=== PATIENT | male | born 1960 | race Caucasian/White ===

== ENCOUNTER 2018-02-04 08:17 | Inpatient (IN) | payer OTHER, SELFPAY ==
[2018-02-04] MEDS ORDERED: ASPIRIN 81 MG CHEWABLE TABLET ONE (08:27)
[2018-02-04] MEDS ORDERED: METOPROLOL TAR 25 MG TAB ONE (08:27)
[2018-02-04] MEDS ORDERED: CLOPIDOGREL 75 MG TABLET ONE (08:27)
--- NOTE | 2018-02-04 08:31 | ER ---
Nurse's Notes [facility] Name: Addison Andrews Age: 58 yrs Sex: Male : 1960 Arrival Date: 02/04/2018 Time: 08:20 Bed 6 Private MD: Diagnosis: ST elevation (STEMI) myocardial infarction of anterior wall Presentation: 02/04 08:20 Presenting complaint: Patient states: left sided chest pain radiating through his back iw started yesterday afternoon, pain constant, pressure, 8/10, no cardiac hx. Transition of care: patient was not received from another setting of care. Onset of symptoms was February 03, 2018. Risk Assessment: Do you want to hurt yourself or someone else? Patient reports no desire to harm self or others. Initial Sepsis Screen: Does the patient meet any 2 criteria? No. Patient's initial sepsis screen is negative. Does the patient have a suspected source of infection? No. Patient's initial sepsis screen is negative. Care prior to arrival: Medication(s) given:. 08:20 Method Of Arrival: Wheelchair iw 08:20 Acuity: DUKE 2 iw Historical: - Allergies: 08:22 NKA; iw - Home Meds: 08:22 None [Active]; iw - PMHx: 08:22 None; iw - PSHx: 08:22 None; iw - Immunization history:: Adult Immunizations not up to date. - Social history:: Smoking status: Patient uses tobacco products, smokes one-half pack cigarettes per day. - Ebola Screening: : Patient negative for fever greater than or equal to 101.5 degrees Fahrenheit, and additional compatible Ebola Virus Disease symptoms Patient denies exposure to infectious person Patient denies travel to an Ebola-affected area in the 21 days before illness onset No symptoms or risks identified at this time. Screenin:34 Abuse screen: Denies threats or abuse. Denies injuries from another. Nutritional iw screening: No deficits noted. Tuberculosis screening: No symptoms or risk factors identified. Fall Risk IV access (20 points). Assessment: 08:20 General: Appears distressed, uncomfortable, Behavior is cooperative. Pain: Complains of iw pain in anterior aspect of left upper chest and left breast Pain radiates to back Pain currently is 8 out of 10 on a pain scale. Quality of pain is described as pressure, Pain began 1 day ago. Is continuous. Neuro: Level of Consciousness is awake, alert, obeys commands, Oriented to person, place, time, situation, Moves all extremities. Full function. Cardiovascular: Reports chest pain, Denies nausea, vomiting, Capillary refill < 3 seconds in bilateral fingers Patient's skin is warm and dry. Respiratory: Respiratory effort is even, unlabored, Respiratory pattern is regular, symmetrical. GI: Patient currently denies vomiting. Derm: Skin is pink, warm \T\ dry. normal. Musculoskeletal: Range of motion: intact in all extremities. 08:40 Reassessment: Line Production Cook nurse at bedside to receive report, pt placed on Life [employer]ar iw monitor, placed on O2. Vital Signs: 08:22 BP 157 / 107; Pulse 87; Resp 20 S; Pulse Ox 96% on R/A; Weight 88.45 kg (R); Pain 8/10; iw 08:33 BP 145 / 108; Pulse 86; Resp 20 S; Pulse Ox 97% on R/A; Pain 8/10; iw 08:40 BP 138 / 94; Pulse 85; Resp 22; Pulse Ox 97% ; jl7 08:45 BP 119 / 94; jl7 ED Course: 08:20 Patient arrived in ED. hj 08:22 John Solis MD is Attending Physician. gs 08:27 Triage completed. iw 08:30 Laquita Hays MD is Hospitalizing Provider. gs 08:30 Inserted saline lock: 20 gauge in right antecubital area, using aseptic technique. iw Blood collected. IV inserted by ALEK Page. 08:33 X-ray completed. Portable x-ray completed in exam room. 1 08:34 XRAY Chest (1 view) In Process Unspecified. EDMS 08:34 Inserted saline lock: 22 gauge in left hand, using aseptic technique. IV inserted by jose Page RN. 08:36 Patient has correct armband on for positive identification. Placed in gown. Bed in low iw position. Call light in reach. Side rails up X2. Adult w/ patient. consulting technical director on. Pulse ox on. NIBP on. 08:41 EKG done, by site supervising technical operator. reviewed by John Solis MD. at1 08:45 Jena Oliver RN is Primary Nurse. iw 08:46 No provider procedures requiring assistance completed. Patient admitted, IV remains in iw place. 08:55 Arm band placed on right wrist. jl7 Administered Medications: 08:28 Drug: Aspirin Chewable Tablet 324 mg Route: PO; iw 08:56 Follow up: Response: Other; Pt moved to research laboratory manager jl7 08:34 Drug: Heparin ([place]-Bolus No thrombolytic) - HEParin 60 units/kg {Co-Signature: ae1 jl7 (Myke Humphrey RN).} Route: IVP; Site: right antecubital; 08:57 Follow up: Response: Pt moved to research laboratory manager jl7 08:36 Drug: morphine 8 mg Route: IVP; Site: left hand; jl7 08:57 Follow up: Response: Pt moved to research laboratory manager jl7 08:36 Drug: Heparin ([place] Drip) 12 units/kg/hr - (HEParin 31452 units, D5W 500 ml) jl7 {Co-Signature: ae1 (Myke Humphrey RN).} Route: IV; Rate: calculated rate; Site: right antecubital; 08:58 Follow up: IV Status: Infusion continued upon admission jl7 08:40 Drug: Lopressor 5 mg Route: IVP; Site: left hand; jl7 08:57 Follow up: Response: Pt moved to research laboratory manager jl7 Outcome: 08:31 Decision to Hospitalize by Provider. 08:58 Admitted to Line Production Cook accompanied by nurse, family with patient, via stretcher, with jl7 oxygen, on monitor, with chart, Other Report given to research laboratory manager nurse 08:58 Condition: stable 08:58 Instructed on the need for admit, Demonstrated understanding of instructions. 08:59 Patient left the ED. [facility] Signatures: Dispatcher [employer] EDMS Dee Dee Plata mh1 Jena Oliver, RN RN Annelise aguilar, accounting advisory services manager EKG Tat1 Jd Peralta RN RN hj Leal, Jahala, RN RN [facility] John Solis MD MD Myke Humphrey RN ae1 Corrections: (The following items were deleted from the chart) 08:29 08:22 BP 157 / 107; Pulse 87bpm; Resp 20bpm; Spontaneous; Pulse Ox 96% RA; Pain 8/10; iwiw
--- NOTE | 2018-02-04 08:31 | EDPHYS ---
Physician Documentation [facility] Name: Addison Andrews Age: 58 yrs Sex: Male : 1960 Arrival Date: 02/04/2018 Time: 08:20 Bed 6 Private MD: ED Physician John Solis HPI: 02/04 08:45 This 58 yrs old Male presents to ER via Wheelchair with complaints of Chest gs Pain. 08:45 The patient or guardian reports chest pain that is located primarily in the anterior gs chest wall. Onset: yesterday. The pain radiates to Associated signs and symptoms: Pertinent positives: shortness of breath. The chest pain is described as a heaviness. Duration: The patient or guardian reports a single episode, that is still ongoing. Modifying factors: The symptoms are alleviated by nothing. Severity of pain: At its worst the pain was severe in the emergency department the pain is unchanged. The patient has not experienced similar symptoms in the past. Historical: - Allergies: 08:22 NKA; iw - Home Meds: 08:22 None [Active]; iw - PMHx: 08:22 None; iw - PSHx: 08:22 None; iw - Immunization history:: Adult Immunizations not up to date. - Social history:: Smoking status: Patient uses tobacco products, smokes one-half pack cigarettes per day. - Ebola Screening: : Patient negative for fever greater than or equal to 101.5 degrees Fahrenheit, and additional compatible Ebola Virus Disease symptoms Patient denies exposure to infectious person Patient denies travel to an Ebola-affected area in the 21 days before illness onset No symptoms or risks identified at this time. ROS: 08:45 All other systems are negative. gs Exam: 08:45 Head/Face: Normocephalic, atraumatic. Eyes: Pupils equal round and reactive to light, gs extra-ocular motions intact. Lids and lashes normal. Conjunctiva and sclera are non-icteric and not injected. Cornea within normal limits. Periorbital areas with no swelling, redness, or edema. ENT: Nares patent. No nasal discharge, no septal abnormalities noted. Tympanic membranes are normal and external auditory canals are clear. Oropharynx with no redness, swelling, or masses, exudates, or evidence of obstruction, uvula midline. Mucous membranes moist. Neck: Trachea midline, no thyromegaly or masses palpated, and no cervical lymphadenopathy. Supple, full range of motion without nuchal rigidity, or vertebral point tenderness. No Meningismus. Chest/axilla: Normal chest wall appearance and motion. Nontender with no deformity. No lesions are appreciated. Cardiovascular: Regular rate and rhythm with a normal S1 and S2. No gallops, murmurs, or rubs. Normal PMI, no JVD. No pulse deficits. Respiratory: Lungs have equal breath sounds bilaterally, clear to auscultation and percussion. No rales, rhonchi or wheezes noted. No increased work of breathing, no retractions or nasal flaring. Abdomen/GI: Soft, non-tender, with normal bowel sounds. No distension or tympany. No guarding or rebound. No evidence of tenderness throughout. Back: No spinal tenderness. No costovertebral tenderness. Full range of motion. Skin: Warm, dry with normal turgor. Normal color with no rashes, no lesions, and no evidence of cellulitis. MS/ Extremity: Pulses equal, no cyanosis. Neurovascular intact. Full, normal range of motion. Neuro: Awake and alert, GCS 15, oriented to person, place, time, and situation. Cranial nerves II-XII grossly intact. Motor strength 5/5 in all extremities. Sensory grossly intact. Cerebellar exam normal. Normal gait. 08:45 Constitutional: The patient appears alert, awake. 08:45 ECG was reviewed by the Attending Physician. Vital Signs: 08:22 BP 157 / 107; Pulse 87; Resp 20 S; Pulse Ox 96% on R/A; Weight 88.45 kg (R); Pain 8/10; iw 08:33 BP 145 / 108; Pulse 86; Resp 20 S; Pulse Ox 97% on R/A; Pain 8/10; iw 08:40 BP 138 / 94; Pulse 85; Resp 22; Pulse Ox 97% ; jl7 08:45 BP 119 / 94; jl7 MDM: 08:22 Patient medically screened. 08:45 Differential diagnosis: acute myocardial infarction, coronary artery disease chest wall gs pain, congestive heart failure. Data reviewed: vital signs, nurses notes. 02/04 08:26 Order name: Basic Metabolic Panel 02/04 08:26 Order name: CBC with Diff 02/04 08:26 Order name: LFT's 02/04 08:26 Order name: Magnesium 02/04 08:26 Order name: PT-INR 02/04 08:26 Order name: Troponin (emerg Dept Use Only) 02/04 08:26 Order name: XRAY Chest (1 view) 02/04 08:26 Order name: EKG; Complete Time: 08:27 02/04 08:26 Order name: Cardiac monitoring; Complete Time: 08:36 02/04 08:26 Order name: EKG - Nurse/Tech; Complete Time: 08:45 02/04 08:26 Order name: IV Saline Lock; Complete Time: 08:36 02/04 08:26 Order name: Labs collected and sent; Complete Time: 08:36 02/04 08:26 Order name: O2 Per Protocol; Complete Time: 08:45 02/04 08:26 Order name: O2 Sat Monitoring; Complete Time: 08:45 EC:45 Rate is 87 beats/min. Rhythm is regular. TN interval is normal. QRS interval is normal. gs ST Segment is elevated in leads I, V2, V3, V4, V5, V6. Clinical impression: Anterior NH - acute. Interpreted by me. Administered Medications: 08:28 Drug: Aspirin Chewable Tablet 324 mg Route: PO; iw 08:56 Follow up: Response: Other; Pt moved to clinical laboratory medical director jl7 08:34 Drug: Heparin ([place]-Bolus No thrombolytic) - HEParin 60 units/kg {Co-Signature: ae1 jl7 (Myke Humphrey RN).} Route: IVP; Site: right antecubital; 08:57 Follow up: Response: Pt moved to clinical laboratory medical director jl7 08:36 Drug: morphine 8 mg Route: IVP; Site: left hand; jl7 08:57 Follow up: Response: Pt moved to clinical laboratory medical director jl7 08:36 Drug: Heparin ([place] Drip) 12 units/kg/hr - (HEParin 76832 units, D5W 500 ml) jl7 {Co-Signature: ae1 (Myke Humphrey RN).} Route: IV; Rate: calculated rate; Site: right antecubital; 08:58 Follow up: IV Status: Infusion continued upon admission jl7 08:40 Drug: Lopressor 5 mg Route: IVP; Site: left hand; jl7 08:57 Follow up: Response: Pt moved to clinical laboratory medical director jl7 Disposition: 02/04/18 08:31 Hospitalization ordered by Laquita Hays for Inpatient Admission. Preliminary diagnosis is ST elevation (STEMI) myocardial infarction of anterior wall. - Bed requested for Intensive Care Unit. - Status is Inpatient Admission. jl7 - Condition is Stable. - Problem is new. - Symptoms have improved. UTI on Admission? No Signatures: Dispatcher [employer] EDMS Jena Oliver RN RN Camilo Betancourt RN RN 7 John Solis MD MD Myke Humphrey RN ae1 Corrections: (The following items were deleted from the chart) 08:45 08:26 Urine Dipstick-Ancillary ordered. [facility] 08:59 08:31 Hospitalization Ordered by Laquita Hays MD for Inpatient Admission. Preliminary [address] elevation (STEMI) myocardial infarction of anterior wall. Bed requested for Intensive Care Unit. Status is Inpatient Admission. Condition is Stable. Problem is new. Symptoms have improved. UTI on Admission? No.
[2018-02-04] MEDS ORDERED: MORPHINE 4 MG/ML SYR ONE ×2 (08:34→10:30)
[2018-02-04] MEDS ORDERED: HEPARIN 5000 UNIT/ML 1 ML VIAL ONE (08:34)
[2018-02-04] MEDS ORDERED: HEPARIN/D5W 25,000 UNIT/500 ML BAG IV ONE (08:35)
[2018-02-04] MEDS ORDERED: METOPROLOL TARTRATE 5 MG/5 ML INJ IV ONE ×2 (08:35→09:02)
[2018-02-04] MEDS ORDERED: HEPA 1000U/500MLS 1,000 UNIT/500 ML BAG IV ONE ×2 (08:39→11:31)
[2018-02-04] MEDS ORDERED: LIDOCAINE 1% MPF 2 ML AMPULE ONE ×3 (08:40→11:33)
[2018-02-04] MEDS ORDERED: MIDAZOLAM HCL 2 MG/2 ML INJ ONE (08:40)
[2018-02-04] MEDS ORDERED: FENTANYL CITR 100 MCG/2 ML ONE ×2 (08:41→09:44)
[2018-02-04] MEDS ORDERED: NA CHLORIDE 0.9% 50 ML ONE (08:41)
[2018-02-04] MEDS ORDERED: ATROPINE SULF 1 MG/10 ML SYR IV ONE (08:41)
[2018-02-04] MEDS ORDERED: NITROGLYCERIN 100 MCG/ML SYR (for cath lab use only) IV ONE (08:47)
[2018-02-04] MEDS ORDERED: NITROGLYCERIN/D5W 25 MG/250 ML BTL IV ONE (08:47)
[2018-02-04] MEDS ORDERED: NA CHLORIDE 0.9% 500 ML ONE (08:52)
[2018-02-04 08:56] LABS: Absolute Lymphocytes (CBC) 2.3 K/uL (0.7-4.9); Absolute Monocytes 1.1 K/uL (0.1-1.3); Absolute Neutrophil 12.7 K/uL (1.8-8.0); Basophils % 0.3 % (0-1.3); Eosinophils % 0.1 % (0-4.4); Hematocrit 46.8 % (39.6-49.0); Lymphocytes % 14.4 % (15.3-44.8); MCH 29.1 pg (27.0-35.0); MCV 85.2 fL (80-100); MPV 9.4 fL (7.6-11.3); Monocytes % 6.9 % (3.3-12.3); RBC Red Blood Cell Count 5.49 M/uL (4.33-5.43)
[2018-02-04 08:57] LABS: Protime INR 0.97
--- NOTE | 2018-02-04 08:59 | RAD REPORT ---
EXAM DESCRIPTION: RAD - Chest Single View - 02/04/2018 8:34 am CLINICAL HISTORY: CHEST PAIN Chest pain. COMPARISON: No comparisons FINDINGS: Portable technique limits examination quality. The lungs are grossly clear. The heart is normal in size. No displaced fractures. IMPRESSION: No acute intrathoracic process suspected.
[2018-02-04] MEDS ORDERED: FUROSEMIDE 20 MG/ 2ML VIAL ONE (09:04)
[2018-02-04 09:28] LABS: Arterial Blood Carboxyhemoglob 2.3 % (0-1.5); Blood Gas Oxyhemoglobin 96.5 % (94-97); Blood O2 Saturation 99.8 % (92-98.5)
[2018-02-04 09:39] LABS: ALT/SGPT 90 U/L (12-78); Albumin 3.9 g/dL (3.4-5.0); Alkaline Phosphatase 94 U/L (45-117); BUN Blood Urea Nitrogen 10 mg/dL (7-18); Bicarbonate 31 mmol/L (21-32); Bilirubin Direct 0.1 mg/dL (0-0.2); Bilirubin Total 0.5 mg/dL (0.2-1.0); Glucose Level 323 mg/dL (74-106); Magnesium 2.1 mg/dL (1.8-2.4); Potassium 4.1 mmol/L (3.5-5.1); Protein, Total 8.1 g/dL (6.4-8.2); Sodium Level 135 mmol/L (136-145)
[2018-02-04 09:46] LABS: AST/SGOT 449 U/L (15-37)
[2018-02-04] MEDS ORDERED: PRASUGREL (EFFIENT) 10 MG TAB ONE (09:50)
[2018-02-04] MEDS ORDERED: NITROGLYCERIN 0.4 MG/TAB SL ONE (10:34)
[2018-02-04] MEDS ORDERED: NITROPRUSSIDE 50 MG VIAL IV ONE (10:44)
[2018-02-04] MEDS ORDERED: D5W 250 ML IV ONE (10:44)
[2018-02-04] MEDS ORDERED: ONDANSETRON 4 MG/2 ML VIAL IV PRN (12:55)
[2018-02-04] MEDS ORDERED: NA CHLORIDE 0.9% 1,000 ML IV SCH (13:00)
[2018-02-04] MEDS ORDERED: ZOLPIDEM TARTRATE 10 MG TABLET PO PRN (13:24)
[2018-02-04] MEDS: MORPHINE 4 MG/ML SYR IV PRN ×2 (13:51→21:21)
[2018-02-04] MEDS ORDERED: GLUCAGON 1 MG/VIAL IM PRN (13:56)
[2018-02-04] MEDS ORDERED: D50W 25 GM/50 ML SYRINGE IV PRN (13:56)
[2018-02-04] MEDS ORDERED: NITROGLYCERIN 0.4 MG/TAB SL PRN (14:16)
--- NOTE | 2018-02-04 14:51 | EKG ---
Test Date: 2018-02-04 Test Time: 10:37:01 Adjunct Instructor In Economics: ECTOR MEASUREMENT RESULTS: Intervals: Rate: 88 NH: 142 QRSD: 92 QT: 362 QTc: 438 [place]: P: 53 NH: 142 QRS: 77 T: 52 INTERPRETIVE STATEMENTS: Normal sinus rhythm Anterolateral infarct, possibly acute ACUTE ME Abnormal ECG Compared to ECG 02/04/2018 08:18:30 No significant changes Electronically Signed On 02-04-18 14:50:15 CDT by Erickson Castillo
--- NOTE | 2018-02-04 14:52 | EKG ---
Test Date: 2018-02-04 Test Time: 08:18:30 Chief Design Engineer: ECTOR MEASUREMENT RESULTS: Intervals: Rate: 87 GA: 146 QRSD: 88 QT: 346 QTc: 416 [place]: P: 50 GA: 146 QRS: 13 T: 37 INTERPRETIVE STATEMENTS: Normal sinus rhythm Low voltage QRS Anteroseptal infarct, possibly acute Inferolateral injury pattern ACUTE IN / STEMI Abnormal ECG No previous ECG available for comparison Electronically Signed On 02-04-18 14:50:19 CDT by Erickson Castillo
--- NOTE | 2018-02-04 15:42 | P.HP ---
Certification for Inpatient Patient admitted to: Inpatient With expected LOS: >2 Midnights Patient will require the following post-hospital care: None Practitioner: I am a practitioner with admitting privileges, knowledge of patient current condition, hospital course, and medical plan of care. Services: Services provided to patient in accordance with Admission requirements found in Title 42 Section 412.3 of the Code of Federal Regulations Patient History Date of Service: 02/04/18 Primary Care Provider: None Reason for admission: STEMI History of Present Illness: This is a 58-year-old male with no significant past medical history who presented to the ED complaining of having some chest pain. Patient stated that his chest pain started yesterday. Chest pain was in the left lateral side which is radiating back to his back and up his neck as well. Patient stated that he was resting at that time the chest pain started at its worse patient was 8/10 and felt like heaviness his chest area. Patient also had associated nausea and feeling of on using his with the chest pain. Patient has never had any other past medical history number has anything like this happen to him before. Patient denies having any alcohol positive for tobacco. In the ER patient was found to have STEMI on the EKG and troponin was elevated to 105 and thus was admitted for further care. Allergies No Known Allergies Allergy (Unverified 02/04/18 09:03) Home medications list reviewed: Yes Home Medications: Aspirin [Aspirin EC 81 MG] 81 mg PO DAILY 02/04/18 - Past Medical/Surgical History Has patient received pneumonia vaccine in the past: No Diabetic: No Past Medical History: Patient denies medical history Past Surgical History: Patient denies surgical history - Family History Family History: Reviewed- Non-Contributory - Social History Smoking Status: Current every day smoker Counseled patient to stop smoking for: more than 10 minutes Smoking therapy provided: Yes Patient receptive to therapy: Yes Alcohol use: No CD- Drugs: No Caffeine use: No Review of Systems General: As per HPI Physical Examination - Vital Signs Temperature: 97.0 F Blood Pressure: 121/92 Pulse: 88 Respirations: 23 Pulse Ox (%): 97 - Physical Exam General: Alert, Oriented x3, Moderate distress HEENT: Atraumatic Neck: Supple Respiratory: Clear to auscultation bilaterally, Normal air movement Cardiovascular: Regular rate/rhythm, Normal S1 S2 Gastrointestinal: Normal bowel sounds, Soft and benign, Non-distended, No tenderness Musculoskeletal: No tenderness Integumentary: No rashes Neurological: Normal gait, Normal speech, Normal strength at 5/5 x4 extr, Normal tone, Normal affect Lymphatics: No axilla or inguinal lymphadenopathy - Studies Laboratory Data (last 24 hrs) 02/04/18 08:25: PT 11.4, INR 0.97 02/04/18 08:25: WBC 16.2 H, Hgb 16.0, Hct 46.8, Plt Count 237 02/04/18 08:25: Sodium 135 L, Potassium 4.1, BUN 10, Creatinine 0.70, Glucose 323 H, Magnesium 2.1, Total Bilirubin 0.5, AST 449 H*, ALT 90 H, Alkaline Phosphatase 94 Assessment and Plan - Problems (Diagnosis) (1) STEMI (ST elevation myocardial infarction) Current Visit: Yes Status: Acute Plan: Pt with ST elevation in Lateral Leads and troponin elevated to 105 -Cardiology consulted from the ER. -Reccs Public Health Assistant -S/p heart Cath with Stent Placement in the LAD -Occlusion of the LAD -Transfer to ICU for close monitoring -BB, ASA, Effient, Statin. -Nitroglcerin for Angina PRN -Will check lipid panel and hga1c Qualifiers: Involved coronary artery: LAD coronary artery Qualified Code(s): I21.02 - ST elevation (STEMI) myocardial infarction involving left anterior descending coronary artery Discharge Plan: Other Plan to discharge in: 72 Hours - Advance Directives Does patient have a Living Will: No Does patient have a Durable POA for Healthcare: No - Code Status/Comfort Care Code Status Assessed: Yes Critical Care: Yes
[2018-02-04] MEDS: DIAZEPAM 5 MG TABLET PO PRN (16:09)
[2018-02-04 16:23] LABS: Urine Appearance CLEAR; Urine Bilirubin NEGATIVE (NEG); Urine Blood NEGATIVE (NEG); Urine Color YELLOW; Urine Glucose 3+ (NEG); Urine Protein NEGATIVE (NEG); Urine Specific Gravity >=1.030 (1.005-1.030); Urine Urobilinogen 0.2 mg/dL (0.2-1.0); Urine pH 5.5 (5.0-7.0)
[2018-02-04 16:32] LABS: Barbiturates NEGATIVE (NEGATIVE); Benzodiazepines POSITIVE (NEGATIVE); Cocaine NEGATIVE (NEGATIVE); METHAMPHETAM NEGATIVE (NEGATIVE); Methadone NEGATIVE (NEGATIVE); Opiates POSITIVE (NEGATIVE); Phencyclidine NEGATIVE (NEGATIVE); THC Cannibis NEGATIVE (NEGATIVE)
[2018-02-04 16:36] LABS: Urine Microscopic Reflex NO UMIC
[2018-02-04] MEDS: INSULIN -REGULAR HUMAN 50 UNIT/0.5 ML ML SQ SCH ×2 (17:36→21:18)
[2018-02-04] MEDS: ATORVASTATIN 80 MG TAB PO SCH (21:21)
[2018-02-05] MEDS: MORPHINE 4 MG/ML SYR IV PRN ×4 (05:03→20:23)
[2018-02-05 05:13] VITALS: BMI 35.9
[2018-02-05 05:19] LABS: Absolute Lymphocytes (CBC) 2.5 K/uL (0.7-4.9); Absolute Monocytes 2.3 K/uL (0.1-1.3); Absolute Neutrophil 16.8 K/uL (1.8-8.0); Basophils % 0.2 % (0-1.3); Lymphocytes % 11.3 % (15.3-44.8); MCH 29.5 pg (27.0-35.0); MCV 86.5 fL (80-100); MPV 9.7 fL (7.6-11.3); Monocytes % 10.8 % (3.3-12.3)
[2018-02-05 05:39] LABS: Albumin 3.2 g/dL (3.4-5.0); Bilirubin Total 1.7 mg/dL (0.2-1.0); Magnesium 1.9 mg/dL (1.8-2.4); Phosphorus 3.7 mg/dL (2.5-4.9); Potassium 5.3 mmol/L (3.5-5.1); Protein, Total 7.1 g/dL (6.4-8.2)
[2018-02-05] MEDS ORDERED: INSULIN 70/30 100 UNITS/ML SQ ONE (06:00)
[2018-02-05] MEDS ORDERED: COLCHICINE 0.6 MG TAB PO PRN (08:10)
[2018-02-05] MEDS: METOPROLOL XL 50 MG TAB PO SCH (08:40)
[2018-02-05] MEDS: ASPIRIN 81 MG CHEWABLE TABLET PO SCH (08:42)
[2018-02-05] MEDS: PRASUGREL (EFFIENT) 10 MG TAB PO SCH (08:45)
[2018-02-05] MEDS: CEFTRIAXONE/SWI 1gm 1 GM/10 ML SYR IV SCH (08:45)
[2018-02-05] MEDS: INSULIN -REGULAR HUMAN 50 UNIT/0.5 ML ML SQ SCH ×4 (08:45→20:22)
[2018-02-05] MEDS ORDERED: CEFTRIAXONE 1 GM/NS 50 ML 1 GM/50 ML BAG IV SCH (09:00)
[2018-02-05 09:01] LABS: Blood Morphology Comment NOT SEEN (NOT SEEN); Platelet Estimate ADEQ
--- NOTE | 2018-02-05 09:36 | EKG ---
Test Date: 2018-02-05 Test Time: 07:44:26 Beam Dyer Operator: ECTOR MEASUREMENT RESULTS: Intervals: Rate: 104 UT: 136 QRSD: 90 QT: 310 QTc: 407 [place]: P: 48 UT: 136 QRS: 88 T: 62 INTERPRETIVE STATEMENTS: Sinus tachycardia Low voltage QRS Anteroseptal infarct, cited previously Abnormal ECG Compared to ECG 02/04/2018 10:37:01 Low QRS voltage now present Sinus rhythm no longer present Myocardial infarct finding still present Electronically Signed On 02-05-18 09:36:06 CDT by Too Dawson
--- NOTE | 2018-02-05 10:25 | ECHO ---
HEIGHT: 5 ft 4 in WEIGHT: 209 lb 4 oz DATE OF STUDY: 02/05/[address]: Too Dawson MD 2-DIMENSIONAL: YES M.MODE: YES DOPPLER: YES COLOR FLOW: YES TDS: PORTABLE: YES DEFINITY: BUBBLE STUDY: DIAGNOSIS: POSSIBLE MYOCARDIAL INFARCTION, CHEST PAIN, PERICARDITIS CARDIAC HISTORY: CATHERIZATION: NO SURGERY: NO PROSTHETIC VALVE: NO PACEMAKER: NO MEASUREMENTS (cm) DIASTOLIC (NORMALS) SYSTOLIC (NORMALS) IVSd 1.0 (0.6-1.2) LA Diam 2.8 (1.9-4.0) LVEF 31% LVIDd 5.4 (3.5-5.7) LVIDs 4.7 (2.0-3.5) %FS 14% LVPWd 1.2 (0.6-1.2) Ao Diam 3.1 (2.0-3.7) 2 DIMENSIONAL ASSESSMENT: RIGHT ATRIUM: NORMAL LEFT ATRIUM: NORMAL RIGHT VENTRICLE: NORMAL LEFT VENTRICLE: NORMAL TRICUSPID VALVE: NORMAL MITRAL VALVE: NORMAL PULMONIC VALVE: NORMAL AORTIC VALVE: PERICARDIAL EFFUSION: SMALL AORTIC ROOT: LEFT VENTRICULAR WALL MOTION: ANTERIOR APICAL SEPTAL AKINESIS DOPPLER/COLOR FLOW: IMPAIRED LEFT VENTRCULAR RELAXATION COMMENTS: DEPRESSED LEFT VENTRICULAR EJECTON FRACTION WITH LARGE ANTERIOSEPTAL, APICAL INFERIOR SMALL PERICARDIAL EFFUSION. IMPAIRED LEFT VENTRICULAR RELAXATION. TECHNOLOGIST: VERONICA DOWNING
--- NOTE | 2018-02-05 10:25 | RAD REPORT ---
EXAM DESCRIPTION: RAD - Chest Single View - 02/05/2018 10:19 am CLINICAL HISTORY: Myocardial infarction COMPARISON: February 04 TECHNIQUE: AP portable chest image was obtained 1007 hours . FINDINGS: No interstitial or alveolar edema pattern. Heart size and vasculature normal range for por table imaging. Trachea is midline. No measurable pleural effusion and no pneumothorax. No acute bone finding. Right shoulder degenerative change and old left clavicle fracture change noted. No acute aor tic findings suspected. IMPRESSION: No failure or other acute cardiopulmonary finding. No significant change from February 04.
[2018-02-05] MEDS: NA CHLORIDE 0.9% 1,000 ML IV SCH ×2 (11:00→20:22)
--- NOTE | 2018-02-05 11:02 | P.PN ---
Subjective Date of Service: 02/05/18 Primary Care Provider: None Chief Complaint: STEMI Patient seen and examined at bedside with RN. Chart reviewed. Currently patient complains of having some back pain which is radiating to his friend. Cardiology see all the patient is morning. Case discussed with cardiology. Patient okay to be transferred to the regular floor. Review of Systems General: As per HPI Physical Examination - Vital Signs Temperature: 97.0 F Blood Pressure: 125/96 Pulse: 103 Respirations: 28 Pulse Ox (%): 99 - Physical Exam General: Alert, In no apparent distress HEENT: Atraumatic, PERRLA, EOMI Neck: Supple, JVD not distended Respiratory: Clear to auscultation bilaterally, Normal air movement Cardiovascular: Regular rate/rhythm, Normal S1 S2 Gastrointestinal: Normal bowel sounds, No tenderness Musculoskeletal: No tenderness Integumentary: No rashes Neurological: Normal speech, Normal tone, Normal affect Lymphatics: No axilla or inguinal lymphadenopathy - Studies Medications List Reviewed: Yes Assessment & Plan - Problems (Diagnosis) (1) STEMI (ST elevation myocardial infarction) Onset Date: 02/05/18 Current Visit: Yes Status: Acute Plan: Pt with ST elevation in Lateral Leads and troponin elevated to 105 -Cardiology consulted. Appreciate Reccs -S/p heart Cath with Stent Placement in the LAD -Occlusion of the LAD -BB, ASA, Effient, Statin. -Nitroglcerin for Angina PRN -Will check lipid panel and hga1c -ECHO pending as well. Qualifiers: Involved coronary artery: LAD coronary artery Qualified Code(s): I21.02 - ST elevation (STEMI) myocardial infarction involving left anterior descending coronary artery (2) Pericarditis as complication of acute myocardial infarction Current Visit: Yes Status: Acute Plan: Pleuretic Chest pain -Possible Pericarditis -ECHO pending -Started on [place] Discharge Plan: Home Plan to discharge in: 48 Hours - Code Status/Comfort Care Code Status Assessed: Yes Critical Care: Yes
--- NOTE | 2018-02-05 12:28 | CON ---
History Of Present Illness: Mr. Andrews is a 58-year-old white male, with a history of tobacco use, hypertension, dyslipidemia, no previous cardiac history, came into the emergency room with about a d ay or 2 of constant back pain, was found to have ST elevation on the EKG. Denied PND, orthopnea, but does have some slight pedal edema, some nausea, some diaphoresis and some shortness of breath. He w as brought to the medical laboratory technologist emergently for a heart catheterization and possible intervention. Past Medical History: Negative. Allergies: NONE. Review of Systems: Negative. Social History: Positive for tobacco. Family History: Positive for heart disease. Physical Examination: Vital Signs: When he was in the medical laboratory technologist, his vital signs were stable, he was afebrile, he was in [place] in. HEENT: Negative. Neck: Supple. No bruit. Chest: Clear. Cardiac: Revealed a regular rhythm and rate. No murmurs, gallops, or rubs. Abdomen: Benign. Extremities: Revealed no clubbing, cyanosis, or edema. Diagnostic Data: Showed elevated troponin, abnormal EKG with ST elevation, V1 to V4, otherwise was n ormal. Impression And Plan: Acute anterior myocardial infarction. Plan for emergency heart catheterization and possible intervention. He is now on aspirin, received heparin and beta-blockers. JAKE/RAUL Voice ID: [id number] Report ID: [id number]
--- NOTE | 2018-02-05 12:49 | PN ---
Subjective: Mr. Andrews is a 58-year-old man. Yesterday, he had an LAD stent placed for an ST-elev ation MN. His symptoms of chest pain actually began 28 hours before he presented. He still has pleu ritic chest pain. His ST-elevations never normalized after this, so he probably has an LV aneurysm. This certainly was present on the LV angiogram. We are going to do an echocardiogram today, see if there is a pericardial effusion. Given colchicine in addition to aspirin, Effient and other of the u sual medicines we gave after an MN, and recommended against giving any steroids. The amount of pain he has is pleuritic, so we will get a chest x-ray to see if perhaps he has developed pneumonia. He i s coughing a fair amount. He does not have a fever. His white blood cell count is elevated today. PATRICK/RAUL Voice ID: [id number] Report ID: [id number]
--- NOTE | 2018-02-05 18:19 | OP ---
Surgeon: Erickson Castillo MD Hide Selector: Pina Santos. Description Of Procedure: The patient is a 58 years old, came in with an acute anterior VT, brought from the emergency room straight to the builder's labourer for intervention. A 6-Arabic sheath was introduced in the right common femoral artery. Og catheters were used for diagnostic purposes. He was fou nd to have a normal RCA, normal circumflex, and a totally occluded LAD after the first diagonal and w as a large vessel. The patient had been given 4 mg of Versed and 50 of fentanyl for sedation. A Cou gar wire was able to cross the lesion successfully. This was pre-dilated with a 3.5 x 15 Emerge ball oon, which established PATSY 2 flow in the LAD. Following that, a 3.5 x 16 Synergy stent was placed w ith 0% residual with excellent results. The patient did very well initially and then he started havi ng chest pain again, so I went back in after the procedure was done and LAD and found that his stent was wide open. He received Angiomax during the procedure. He received Effient and aspiri n. He will be placed on beta-alejandra, statin, aspirin, and Effient and observe at least for the next day or 2. Ventriculogram was done showing severe hypokinesis of the anterior apical wall. I was ho ping that this will slowly recovers. He may need to have some SHILO inhibitors as well before he goes home in addition to the beta-blockers. The case was discussed with Dr. Hays. Total conscious sedat ion was 1 hour. Final Diagnosis: Acute myocardial infarction, status post emergency stent in the left anterior desce nding. JAKE/RAUL Voice ID: [id number] Report ID: [id number]
[2018-02-05] MEDS: ATORVASTATIN 80 MG TAB PO SCH (20:22)
[2018-02-06] MEDS: MORPHINE 4 MG/ML SYR IV PRN ×6 (00:27→22:21)
[2018-02-06 06:16] LABS: Albumin 2.8 g/dL (3.4-5.0); Bilirubin Total 1.4 mg/dL (0.2-1.0); Magnesium 2.2 mg/dL (1.8-2.4); Phosphorus 3.1 mg/dL (2.5-4.9); Potassium 4.4 mmol/L (3.5-5.1); Protein, Total 6.6 g/dL (6.4-8.2)
[2018-02-06 06:20] LABS: Absolute Lymphocytes (CBC) 3.3 K/uL (0.7-4.9); Absolute Monocytes 1.7 K/uL (0.1-1.3); Absolute Neutrophil 13.6 K/uL (1.8-8.0); Basophils % 0.2 % (0-1.3); Eosinophils % 0.1 % (0-4.4); Lymphocytes % 17.6 % (15.3-44.8); MCH 29.7 pg (27.0-35.0); MCV 84.1 fL (80-100); MPV 9.7 fL (7.6-11.3); RBC Red Blood Cell Count 4.99 M/uL (4.33-5.43)
[2018-02-06] MEDS: INSULIN -REGULAR HUMAN 50 UNIT/0.5 ML ML SQ SCH ×4 (08:33→21:00)
[2018-02-06] MEDS: METOPROLOL XL 50 MG TAB PO SCH (08:34)
[2018-02-06] MEDS: ASPIRIN 81 MG CHEWABLE TABLET PO SCH (08:35)
[2018-02-06] MEDS: CEFTRIAXONE/SWI 1gm 1 GM/10 ML SYR IV SCH (08:36)
[2018-02-06] MEDS: PRASUGREL (EFFIENT) 10 MG TAB PO SCH (09:18)
--- NOTE | 2018-02-06 11:20 | RAD REPORT ---
EXAM DESCRIPTION: US - Abdomen Exam Limited - 02/05/2018 8:31 pm CLINICAL HISTORY: Abdominal pain. COMPARISON: None. FINDINGS: The gallbladder wall measures 6 millimeters. Gallstones are present. The biliary tree is normal caliber. IMPRESSION: Cholelithiasis Thickened gallbladder wall may indicate cholecystitis
--- NOTE | 2018-02-06 12:25 | P.PN ---
Subjective Date of Service: 02/06/18 Primary Care Provider: None Chief Complaint: STEMI Subjective: No new changes, Tolerating diet, Ambulating, Improving Patient is status post myocardial infarction with left anterior descending stent placement by test preparation tutor. Labs in the images were reviewed today. There has been no elevation in liver enzymes over the last day or so. Subsequently abdominal ultrasound has been ordered and is shown to have cholelithiasis with possible gallbladder wall thickening. Patient has been having mild epigastric pain radiating to the back. Stated that his chest pain is feeling better. Continues to have dry cough without adventitious breath sounds. Patient otherwise seems to be improving. Cardiology has seen him today and has been cleared from their standpoint. <Merlin Ty - Last Filed: 02/06/18 12:18> Date of Service: 02/06/18 <Ashtyn Camacho - Last Filed: 02/06/18 15:12> Review of Systems General: Unremarkable Eyes: Unremarkable ENT: Unremarkable Respiratory: Cough Cardiovascular: Unremarkable Gastrointestinal: Abdominal Pain Musculoskeletal: Unremarkable Integumentary: Unremarkable Neurological: Unremarkable <Merlin Ty - Last Filed: 02/06/18 12:18> Physical Examination - Vital Signs Temperature: 96.9 F Blood Pressure: 116/81 Pulse: 82 Respirations: 18 Pulse Ox (%): 91 - Physical Exam General: Alert, In no apparent distress, Oriented x3, Cooperative HEENT: PERRLA, Mucous membr. moist/pink, EOMI Neck: Supple, 2+ carotid pulse no bruit, JVD not distended Respiratory: Clear to auscultation bilaterally, Normal air movement Cardiovascular: No edema, Normal pulses, Regular rate/rhythm, Normal S1 S2, No gallops, No rubs, No murmurs Capillary refill: <2 Seconds Gastrointestinal: Normal bowel sounds, Soft and benign, Tenderness (2 epigastric region and right upper quadrant without guarding or rebounding) Musculoskeletal: No clubbing, No swelling, No contractures, No erythema, No tenderness, No warmth Integumentary: No rashes, No breakdown, No significant lesion Neurological: Normal speech, Normal strength at 5/5 x4 extr, Normal tone, Sensation intact, Cranial nerves 3-12 intact, Normal reflexes 2+, Normal affect - Studies Medications List Reviewed: Yes <Merlin Ty - Last Filed: 02/06/18 12:18> - Studies Laboratory Tests 02/04/18 02/04/18 02/04/18 08:25 08:25 08:25 WBC 16.2 H RBC 5.49 H Hgb 16.0 Hct 46.8 MCV 85.2 MCH 29.1 MCHC 34.2 RDW 13.5 Plt Count 237 MPV 9.4 Neutrophils % 78.3 H Lymphocytes % 14.4 L Monocytes % 6.9 Eosinophils % 0.1 Basophils % 0.3 Absolute Neutrophils 12.7 H Absolute Lymphocytes 2.3 Absolute Monocytes 1.1 Absolute Eosinophils 0.0 Absolute Basophils 0.0 PT 11.4 INR 0.97 Sodium 135 L Potassium 4.1 Chloride 99 Carbon Dioxide 31 BUN 10 Creatinine 0.70 Estimated GFR > 90 Glucose 323 H Calcium 9.5 Magnesium 2.1 Total Bilirubin 0.5 Direct Bilirubin 0.1 AST 449 H* ALT 90 H Alkaline Phosphatase 94 Rapid Troponin I Serum Total Protein 8.1 Albumin 3.9 Globulin 4.2 H Albumin/Globulin Ratio 0.9 L 02/04/18 08:25 WBC RBC Hgb Hct MCV MCH MCHC RDW Plt Count MPV Neutrophils % Lymphocytes % Monocytes % Eosinophils % Basophils % Absolute Neutrophils Absolute Lymphocytes Absolute Monocytes Absolute Eosinophils Absolute Basophils PT INR Sodium Potassium Chloride Carbon Dioxide BUN Creatinine Estimated GFR Glucose Calcium Magnesium Total Bilirubin Direct Bilirubin AST ALT Alkaline Phosphatase Rapid Troponin I 105.00 H* Serum Total Protein Albumin Globulin Albumin/Globulin Ratio <Ashtyn Camacho - Last Filed: 02/06/18 15:12> Assessment And Plan - Current Problems (Diagnosis) (1) Cholelithiasis Current Visit: Yes Status: Acute Qualifiers: Cholelithiasis location: gallbladder Cholecystitis presence: with cholecystitis (2) Elevated liver enzymes Current Visit: Yes Status: Acute - Plan From a cardiac standpoint patient seems to be recovering very well. Patient will need to be on continued antiplatelet therapy and anti lipidemic medicine. Pain medicine as needed for pericarditis secondary to myocardial infarction. New finding of cholelithiasis with possible cholecystitis has been noted. General Surgery has been consulted and is awaiting further evaluation from them for further treatment plan. The patient has been placed on antibiotics for the mean time to ensure white cell count comes down. Discharge Plan: Home Plan to discharge in: 24 Hours <Merlin Ty - Last Filed: 02/06/18 12:18> - Plan Case discussed with PA. Agree with above plan Spoke w Dr. Khan, pt not a surgical candidate due to Acute CO however he will evaluate the patient. <Ashtyn Camacho - Last Filed: 02/06/18 15:12>
[2018-02-06] MEDS: NA CHLORIDE 0.9% 1,000 ML IV SCH (13:29)
[2018-02-06] MEDS: METRONIDAZOLE 500mg IVPB 500 MG/100 ML BAG IV SCH (16:57)
[2018-02-06] MEDS: CEFOXITIN/SWI 1gm 1 GM/10 ML SYR IV SCH (17:02)
[2018-02-06] MEDS ORDERED: CEFOXITIN SODIUM 1 GM/VIAL IVPB SCH (18:00)
--- NOTE | 2018-02-06 18:24 | CON ---
Date of Consultation: 02/06/2018 Reason: Cholelithiasis. History Of Present Illness: The patient is a 58-year-old gentleman, who was admitted [address]-elevation [place]. He came in with chest pain. Currently he is complaining of some epigastric pain g oing to the back, and he had a stent placed yesterday. He is on anti-platelet drugs and because he h ad an ultrasound done, he had gallstones, I was asked to evaluate. Currently, he says the pain is in the epigastrium, going straight to the back pain. It is better than it was. No diarrhea or constip ation. No current nausea or vomiting. No dysuria or hematuria. No blood in his stool or urine. No sore throat, runny nose, cough, headaches, or dizziness. No fever or chills. Review of Systems: Otherwise unremarkable. Medical History: Denies medical history, but prior to admission obviously he has coronary artery dis ease. Past Surgical History: Denies. Allergies: NONE. Social History: He is a smoker. He was counseled. Denies alcohol use. Family History: Noncontributory. Physical Examination: Vital signs: Stable. He is afebrile. General: He is awake, alert, and oriented x3. Head and Neck: Cranial nerves 2 through 12 grossly within normal limits. No neck masses. No JVD. Throat clear. Neck is supple. Chest: Clear. Heart: S1, S2. Abdomen: Soft. He is tender in the epigastrium and right upper quadrant. No rebound, rigidity, or guarding. Extremities: Adequately perfused. Nontender. Neuro: Nonfocal. Laboratory Data: Shows a white count of 18.6. INR is 0.97. Blood gas reviewed. Chemistry shows hi s AST and ALT to be 449 and 90. Troponin 1 was 1.05, that was on admission. Currently his AST and A LT are 405 and 371. His total bilirubin is 1.4. Direct bilirubin is 0.6. Alkaline phosphatase is 8 3. He had an ultrasound done, which showed gallstones wall that is 6 mm, cholelithiasis, slightly th ickened gallbladder wall. Assessment: The patient with recent myocardial infarction, status post stent placement with some josey vated liver function tests and upper abdominal pain. Recommendation: The patient is high risk for any intervention surgically at this time, however, we w ill get an MRCP to make sure he does not have a stone in his common bile duct and I will also put him on antibiotics. We will allow to him clear liquids. The patient needs to avoid surgery for the at least the 6 months regarding his gallstones if at all possible. Plan of care discussed with Josh. CAMPOS Voice ID: [id number] Report ID: [id number]
[2018-02-06] MEDS: ATORVASTATIN 80 MG TAB PO SCH (20:55)
[2018-02-06] MEDS: CIPROFLOXACIN 400mg IV 400 MG/200 ML BAG IV SCH (20:55)
[2018-02-06] MEDS: ACETAMINOPHEN 500 MG TAB PO PRN (21:21)
--- NOTE | 2018-02-06 22:13 | RAD REPORT ---
EXAM DESCRIPTION: MRI - Cholangiogram - 02/06/2018 8:10 pm CLINICAL HISTORY: Abnormal liver functions studies, cholelithiasis COMPARISON: Gallbladder ultrasound February 05 FINDINGS: At least 1 large gallstone is identifiable. Gallbladder is contracted. An approximately 17 millimeter filling defect is seen within the lumen of the gallbladder near the neck. Gallbladder wal l does not appear thickened or edematous and no fluid or stranding seen in the gallbladder fossa. Pat ient does have a small amount of ascites along the right lateral liver capsule. No intrahepatic or extrahepatic biliary tree dilatation. No stricture, mass or duct stone identifiabl e. Pancreatic duct is relatively prominent in the head of the pancreas with the body and tail portion of the duct normal. No stricture or mass. This is likely normal variant. No evidence for a pancreati c mass, fluid or stranding on the coronal and axial images. IMPRESSION: Cholelithiasis without evidence for significant acute gallbladder disease. No duct stone or biliary tree abnormality.
[2018-02-07] MEDS: CEFOXITIN/SWI 1gm 1 GM/10 ML SYR IV SCH ×4 (00:49→17:17)
[2018-02-07] MEDS: METRONIDAZOLE 500mg IVPB 500 MG/100 ML BAG IV SCH ×3 (00:50→17:17)
[2018-02-07] MEDS: MORPHINE 4 MG/ML SYR IV PRN ×4 (03:05→22:03)
[2018-02-07] MEDS: NA CHLORIDE 0.9% 1,000 ML IV SCH ×2 (04:14→16:20)
[2018-02-07 05:35] LABS: Absolute Lymphocytes (CBC) 1.6 K/uL (0.7-4.9); Absolute Monocytes 1.4 K/uL (0.1-1.3); Absolute Neutrophil 9.7 K/uL (1.8-8.0); Basophils % 0.2 % (0-1.3); Eosinophils % 0.1 % (0-4.4); Hematocrit 37.4 % (39.6-49.0); Lymphocytes % 12.6 % (15.3-44.8); MCH 29.6 pg (27.0-35.0); MCV 84.5 fL (80-100); MPV 9.5 fL (7.6-11.3); RBC Red Blood Cell Count 4.43 M/uL (4.33-5.43)
[2018-02-07 06:34] LABS: AST/SGOT 221 U/L (15-37); Albumin 2.7 g/dL (3.4-5.0); Alkaline Phosphatase 117 U/L (45-117); BUN Blood Urea Nitrogen 24 mg/dL (7-18); Bicarbonate 30 mmol/L (21-32); Glucose Level 183 mg/dL (74-106); Magnesium 2.1 mg/dL (1.8-2.4); Phosphorus 2.4 mg/dL (2.5-4.9); Potassium 4.7 mmol/L (3.5-5.1); Protein, Total 6.6 g/dL (6.4-8.2); Sodium Level 133 mmol/L (136-145)
[2018-02-07 06:37] LABS: ALT/SGPT 331 U/L (12-78)
[2018-02-07] MEDS ORDERED: POTASS/SODIUM PHOSPHATE 1 PKT POWD.PACK PO SCH (07:00)
[2018-02-07] MEDS: POTASS/SODIUM PHOSPHATE 1 PKT POWD.PACK PO SCH ×3 (07:00→11:53)
[2018-02-07] MEDS: INSULIN -REGULAR HUMAN 50 UNIT/0.5 ML ML SQ SCH ×4 (07:30→20:59)
[2018-02-07] MEDS: ASPIRIN 81 MG CHEWABLE TABLET PO SCH (09:28)
[2018-02-07] MEDS: CIPROFLOXACIN 400mg IV 400 MG/200 ML BAG IV SCH ×2 (09:28→20:48)
[2018-02-07] MEDS: PRASUGREL (EFFIENT) 10 MG TAB PO SCH (09:28)
[2018-02-07] MEDS: METOPROLOL XL 50 MG TAB PO SCH (09:28)
--- NOTE | 2018-02-07 12:28 | PN ---
Date of Progress Note: 02/07/2018 Subjective: The patient is awake, alert. Does not really have abdominal pain. He complains of ches t tightness. He does have pericarditis and recent stent placed. He is tolerating his diet. Objective: Vital signs: Stable, afebrile. Abdomen: Benign. Diagnostic Data: MRCP reviewed. No evidence of acute cholecystitis. No common bile duct pathology. Assessment: Cholelithiasis, mild cholecystitis. Recommendations: Continue IV antibiotics. Low-fat diet. The patient is a high risk surgical interv ention at this time. He may have biliary colic. After 6 months, he may benefit from a cholecystecto my at that time. /MODL Voice ID: [id number] Report ID: [id number]
--- NOTE | 2018-02-07 13:33 | RAD REPORT ---
EXAM DESCRIPTION: CT - Chest For Pe Angio - 02/07/2018 1:20 pm CLINICAL HISTORY: Shortness of breath is COMPARISON: None. TECHNIQUE: Dynamically enhanced axial 3 mm thick images of the chest were obtained during administra tion of <100> mL Isovue 370 IV contrast. Coronal and oblique reconstruction images were generated and reviewed. Exam utilizes a protocol for optimal evaluation of pulmonary arterial tree. Maximum intensity projections 3D imaging was utilized All CT scans are performed using dose optimization technique as appropriate and may include automated exposure control or mA/KV adjustment according to patient size. FINDINGS: A pulmonary embolus is not seen. A thoracic aortic aneurysm is not noted. Small bilateral pleural effusions are present A moderate pericardial effusion is seen. A lung consolidation is not present. IMPRESSION: Negative for a pulmonary embolism. Moderate pericardial effusion
[2018-02-07] MEDS: ACETAMINOPHEN 500 MG TAB PO PRN (20:47)
[2018-02-07] MEDS: ATORVASTATIN 80 MG TAB PO SCH (20:49)
--- NOTE | 2018-02-08 00:29 | PN ---
History: The patient had been admitted by Dr. Hays with an acute RI on 02/04/2018. I took him to t label tacker from the emergency room and did a stent on a completely occluded LAD. Since then, he con tinued to have chest pain and was found to have pericardial effusion with pericarditis. Has been giv en colchicine. He is on a low-dose beta-alejandra, aspirin, Effient, and a statin. Continues to have some chest pain. We will continue his present treatment as try to ambulate him. It would be great i f we could put him on a small dose of SHILO inhibitor because of his anteroapical hypokinesis. He had come approximately 48 hours after his RI started. I will discuss the case further with Dr. Hays. JAKE/RAUL Voice ID: [id number] Report ID: [id number]
[2018-02-08] MEDS: CEFOXITIN/SWI 1gm 1 GM/10 ML SYR IV SCH ×3 (00:46→12:33)
[2018-02-08] MEDS: METRONIDAZOLE 500mg IVPB 500 MG/100 ML BAG IV SCH ×2 (00:47→08:20)
[2018-02-08] MEDS: DIAZEPAM 5 MG TABLET PO PRN (00:54)
[2018-02-08] MEDS: NA CHLORIDE 0.9% 1,000 ML IV SCH ×2 (00:59→05:40)
[2018-02-08] MEDS: MORPHINE 4 MG/ML SYR IV PRN (03:41)
[2018-02-08 05:55] LABS: BUN Blood Urea Nitrogen 15 mg/dL (7-18); Bicarbonate 29 mmol/L (21-32); Glucose Level 152 mg/dL (74-106); Magnesium 2.3 mg/dL (1.8-2.4); Phosphorus 2.7 mg/dL (2.5-4.9); Potassium 4.1 mmol/L (3.5-5.1); Sodium Level 135 mmol/L (136-145)
--- NOTE | 2018-02-08 06:08 | P.PN ---
Subjective Date of Service: 02/07/18 Regain patient ready for discharge. However patient became severely short of breath. Patient became tachycardic with heart rate in the 160s. Family was concerned about patient's clinical status. Patient had a large myocardial infarction which left his anterior segment of his left ventricle akinetic. His ejection fraction is only 31%. Uncertain if he will regain any improvement after stand as he may have had completion of his myocardial infarction as he waited 48 hr prior to coming into the hospital. Will do a stat CT of the chest & discuss the case with Cardiology. Review of Systems 10-point ROS is otherwise unremarkable Physical Examination - Vital Signs Temperature: 97.7 F Blood Pressure: 112/70 Pulse: 88 Respirations: 20 Pulse Ox (%): 93 - Physical Exam General: Alert, In no apparent distress, Oriented x3 Neck: JVD distended Respiratory: Diminished, Crackles/rales Cardiovascular: Regular rate/rhythm, Normal S1 S2, Systolic murmur Gastrointestinal: Normal bowel sounds, Soft and benign, Non-distended, No tenderness Musculoskeletal: No clubbing, No swelling, No tenderness Integumentary: No rashes Neurological: Normal speech, Normal tone, Sensation intact, Cranial nerves 3-12 intact, Normal affect Lymphatics: No axilla or inguinal lymphadenopathy - Studies Medications List Reviewed: Yes Assessment & Plan - Problems (Diagnosis) (1) Anterior wall myocardial infarction Current Visit: Yes Status: Acute (2) Cardiomyopathy Current Visit: Yes Status: Acute (3) Moderate left ventricular systolic dysfunction Current Visit: Yes Status: Acute (4) Acute pericardial effusion Current Visit: Yes Status: Acute (5) Pericarditis as complication of acute myocardial infarction Current Visit: Yes Status: Acute (6) STEMI (ST elevation myocardial infarction) Onset Date: 02/05/18 Current Visit: Yes Status: Acute Qualifiers: Involved coronary artery: LAD coronary artery Qualified Code(s): I21.02 - ST elevation (STEMI) myocardial infarction involving left anterior descending coronary artery - Plan Plan: 1. Continue with colchicine 2. No steroids as patient with recent myocardial infarction and increase risk of myocardial rupture with steroid use 3. Continue cardiac medications 4. Echocardiogram 5. Outpatient cardiac rehab 6. PT evaluation 7. Continue with anti-platelet therapy and statin therapy 8. Beta-alejandra therapy 9. Monitor fluid status as patient may need diuretics if his ejection fraction is not improving 10. Close outpatient follow with Cardiology 11. Surgery for gallbladder on hold until cardiac status improves - Advance Directives Does patient have a Living Will: No Does patient have a Durable POA for Healthcare: No - Code Status/Comfort Care Code Status Assessed: Yes Code Status: Full Code Critical Care: No Time Spent Managing PTS Care (In Minutes): 50
[2018-02-08 06:27] LABS: Albumin 2.6 g/dL (3.4-5.0); Bilirubin Direct 0.3 mg/dL (0-0.2); Bilirubin Total 0.7 mg/dL (0.2-1.0)
[2018-02-08] MEDS: INSULIN -REGULAR HUMAN 50 UNIT/0.5 ML ML SQ SCH ×4 (07:30→21:00)
[2018-02-08] MEDS: ACETAMINOPHEN 500 MG TAB PO PRN ×2 (08:18→20:10)
[2018-02-08] MEDS: CIPROFLOXACIN 400mg IV 400 MG/200 ML BAG IV SCH (08:18)
[2018-02-08] MEDS: ASPIRIN 81 MG CHEWABLE TABLET PO SCH (08:19)
[2018-02-08] MEDS: METOPROLOL XL 50 MG TAB PO SCH (08:19)
[2018-02-08] MEDS: PRASUGREL (EFFIENT) 10 MG TAB PO SCH (09:31)
--- NOTE | 2018-02-08 12:21 | PN ---
Date of Progress Note: 02/07/2018 Subjective: Mr. Andrews came in on 02/04/2018, with an acute anterior [place], occluded LAD. He has dev eloped CHF, since has anteroapical akinesis. Ejection fraction about 30%. Small pericardial effusio n. We are going to send him home actually today, but he felt short of breath and tachycardic when he did any minimal exertion. With it, we decided to repeat an echocardiogram. He has had one on 02/05, showing a small pericardial effusion. A CTA was negative for pulmonary embolus, but showed mo derate pericardial effusion. A stat echo was done revealing no tamponade. He did have a small peric ardial effusion. Ejection fraction was reduced at about 30% to 35% with anteroapical akinesis. Plan: I recommend we increase his beta alejandra. Continue aspirin. Continue Effient. Continue Lipi tor. He is not hypertensive, but he could certainly use low-dose SHILO inhibitors as well. JAKE/RAUL Voice ID: [id number] Report ID: [id number]
--- NOTE | 2018-02-08 12:24 | PN ---
Date of Progress Note: 02/08/2018 Subjective: Mr. Andrews had been here since 02/04/2018, following a stent for an acute anterior [place]. He had a completely occluded LAD. Has good has CHF, anteroapical akinesis. Has pericardial effusi on without tamponade. He is on colchicine, beta-blockers, aspirin Effient, and statin. He remains t achycardic with exertion and short of breath, but I think this is going to take some time before this improves. We are hoping his ejection fraction will get better eventually. For now, I would continu e his present regimen. He can go home as far as I am concerned. I would add a low-dose SHILO inhibito r. Continue his other regimen. I would like to see him in the next week or 2 in the office. JAKE/RAUL Voice ID: [id number] Report ID: [id number]
--- NOTE | 2018-02-08 13:42 | P.PN ---
Subjective Date of Service: 02/08/18 Primary Care Provider: None Chief Complaint: STEMI Patient seen and examined at bedside with RN. Chart reviewed. Case discussed with cardiology at this time. Case also discussed with general surgery at this time. Currently patient has no complaints to offer states that he has been ambulating and eating his diet well and no chest pain. Her no shortness of breath noted at this time. Review of Systems General: As per HPI Physical Examination - Vital Signs Temperature: 97.6 F Blood Pressure: 112/72 Pulse: 84 Respirations: 18 Pulse Ox (%): 94 - Physical Exam General: Alert, In no apparent distress HEENT: Atraumatic, PERRLA, EOMI Neck: Supple, JVD not distended Respiratory: Clear to auscultation bilaterally, Normal air movement Cardiovascular: Regular rate/rhythm, Normal S1 S2 Gastrointestinal: Normal bowel sounds, No tenderness Musculoskeletal: No tenderness Integumentary: No rashes Neurological: Normal speech, Normal tone, Normal affect Lymphatics: No axilla or inguinal lymphadenopathy - Studies Medications List Reviewed: Yes Assessment & Plan - Problems (Diagnosis) (1) STEMI (ST elevation myocardial infarction) Onset Date: 02/05/18 Current Visit: Yes Status: Acute Plan: Pt with ST elevation in Lateral Leads and troponin elevated to 105. Anterior Wall [place]. -Cardiology consulted. Appreciate Reccs -S/p heart Cath with Stent Placement in the LAD -Occlusion of the LAD -BB, ASA, Effient, Statin and low dose lisinopril -Nitroglcerin for Angina PRN Qualifiers: Involved coronary artery: LAD coronary artery Qualified Code(s): I21.02 - ST elevation (STEMI) myocardial infarction involving left anterior descending coronary artery (2) Pericarditis as complication of acute myocardial infarction Current Visit: Yes Status: Acute Plan: Pleuretic Chest pain, Possible Pericarditis -ECHO wiht EF of 31% and Hypokensus. -Mod Pericardial effusion noted. -Started on Colchicine (3) Cardiomyopathy Current Visit: Yes Status: Acute Qualifiers: Cardiomyopathy type: ischemic Qualified Code(s): I25.5 - Ischemic cardiomyopathy (4) Moderate left ventricular systolic dysfunction Current Visit: Yes Status: Acute (5) Cholelithiasis Current Visit: Yes Status: Acute Plan: CT abd and liver US with Cholelithiasis -Elevated LFT's now improving -Surgery Consulted. Appreciate Reccs -poor Candidate for surgery given his recent [place] and poor EF -Outpt F/u -Oral Abx. -Will f.u with LFT's gianluca. Qualifiers: Cholelithiasis location: gallbladder Cholecystitis presence: with cholecystitis Cholecystitis acuity: unspecified acuity Biliary obstruction: without biliary obstruction Qualified Code(s): K80.10 - Calculus of gallbladder with chronic cholecystitis without obstruction Discharge Plan: Home Plan to discharge in: 48 Hours - Code Status/Comfort Care Code Status Assessed: Yes Critical Care: No
[2018-02-08] MEDS: ATORVASTATIN 80 MG TAB PO SCH (20:06)
[2018-02-09 02:50] LABS: HBsAG Nonreactive (Nonreactive); Hepatitis A IgM Antibody Nonreactive
[2018-02-09 05:12] LABS: Absolute Lymphocytes (CBC) 1.6 K/uL (0.7-4.9); Absolute Monocytes 1.2 K/uL (0.1-1.3); Absolute Neutrophil 6.4 K/uL (1.8-8.0); Basophils % 0.4 % (0-1.3); Eosinophils % 0.5 % (0-4.4); Hematocrit 35.5 % (39.6-49.0); Lymphocytes % 17.6 % (15.3-44.8); MCH 29.9 pg (27.0-35.0); MPV 8.9 fL (7.6-11.3); Monocytes % 12.6 % (3.3-12.3); RBC Red Blood Cell Count 4.18 M/uL (4.33-5.43)
[2018-02-09 05:25] LABS: ALT/SGPT 214 U/L (12-78); AST/SGOT 88 U/L (15-37); Albumin 2.5 g/dL (3.4-5.0); Alkaline Phosphatase 129 U/L (45-117); BUN Blood Urea Nitrogen 12 mg/dL (7-18); Bicarbonate 28 mmol/L (21-32); Bilirubin Total 0.6 mg/dL (0.2-1.0); Glucose Level 171 mg/dL (74-106); Potassium 3.9 mmol/L (3.5-5.1); Protein, Total 5.9 g/dL (6.4-8.2); Sodium Level 140 mmol/L (136-145)
[2018-02-09] MEDS ORDERED: POTASSIUM CL SA 10 MEQ TAB PO ONE (06:18)
[2018-02-09] MEDS: ACETAMINOPHEN 500 MG TAB PO PRN (06:40)
[2018-02-09] MEDS: INSULIN -REGULAR HUMAN 50 UNIT/0.5 ML ML SQ SCH ×2 (07:30→11:55)
[2018-02-09] MEDS: PRASUGREL (EFFIENT) 10 MG TAB PO SCH (08:25)
[2018-02-09] MEDS: ASPIRIN 81 MG CHEWABLE TABLET PO SCH (08:25)
[2018-02-09] MEDS: METOPROLOL XL 50 MG TAB PO SCH (08:26)
[2018-02-09] MEDS ORDERED: LISINOPRIL 10 MG TAB PO SCH (09:00)
[2018-02-09 09:10] VITALS: O2SAT 93
[2018-02-09 12:07] VITALS: BP 101/71; TEMP 98
--- NOTE | 2018-02-09 12:37 | P.DS ---
Admission Date: 02/04/18 Discharge Date: 02/09/18 Primary Care Provider: None Disposition: ROUTINE DISCHARGE Discharge Condition: GOOD Reason for Admission: STEMI Consultations: Cardiology General surgery - Problems (1) STEMI (ST elevation myocardial infarction) Onset Date: 02/05/18 Current Visit: Yes Status: Acute Qualifiers: Involved coronary artery: LAD coronary artery Qualified Code(s): I21.02 - ST elevation (STEMI) myocardial infarction involving left anterior descending coronary artery (2) Pericarditis as complication of acute myocardial infarction Current Visit: Yes Status: Acute (3) Cardiomyopathy Current Visit: Yes Status: Acute Qualifiers: Cardiomyopathy type: ischemic Qualified Code(s): I25.5 - Ischemic cardiomyopathy (4) Moderate left ventricular systolic dysfunction Current Visit: Yes Status: Acute (5) Cholelithiasis Current Visit: Yes Status: Acute Qualifiers: Cholelithiasis location: gallbladder Cholecystitis presence: with cholecystitis Cholecystitis acuity: unspecified acuity Biliary obstruction: without biliary obstruction Qualified Code(s): K80.10 - Calculus of gallbladder with chronic cholecystitis without obstruction Brief History of Present Illness: This is a 58-year-old male with no significant past medical history who presented to the ED complaining of having some chest pain. Patient stated that his chest pain started yesterday. Chest pain was in the left lateral side which is radiating back to his back and up his neck as well. Patient stated that he was resting at that time the chest pain started at its worse patient was 8/10 and felt like heaviness his chest area. Patient also had associated nausea and feeling of on using his with the chest pain. Patient has never had any other past medical history number has anything like this happen to him before. Patient denies having any alcohol positive for tobacco. In the ER patient was found to have STEMI on the EKG and troponin was elevated to 105 and thus was admitted for further care. Hospital Course: Overall during the hospital stay patient remained stable Patient was initially admitted to the hospital for anterior wall [place]. Cardiology was consulted from the ER. Patient was taken to the photographic laboratory technician. Patient had a stent placement in the LAD. Patient did well overall post procedure. Initially patient was complaining of having chest pain after the procedure. Patient started on nitroglycerin p.r.n.. Patient's chest pain did resolve after that. Patient had and repeat echocardiogram done here in the hospital which was consistent with impaired left ventricular ejection fraction along with global hypokinesis. Initially patient was started on a beta-alejandra , aspirin, statin, SHILO inhibitor was added due to the low ejection fraction post WV. Patient on day 3 of hospitalization complained of having some pleuritic chest pain this an echocardiogram was repeated which was consistent with pericardial effusion and small amount. Patient was thought to have pericarditis and thus was started on colchicine. Patient's chest pain then resolved completely. Patient then was transferred to the floor. Patient was working with physical therapy and doing well overall. Patient was noted to have elevated LFTs on the day for here in the hospital is patient. The patient had a ultrasound of the gallbladder done which was consistent with cholelithiasis. General surgery was consulted who recommended MRCP. MRCP was negative for any acute cholecystitis. Patient however would not be a candidate for any acute surgery at this time for his cholelithiasis that general surgery stated the patient follow up outpatient in 6 months. And other lab work done to evaluate for his elevated LFTs and was found at 80. Patient at that time was educated extensively on the disease process and was asked to follow up with the GI doctor once discharged her from the hospital. Patient afebrile was doing well overall ambulated around not having any shortness of breath or chest pain and lab work was improving and thus was discharged home under stable condition. Patient was asked to follow up with primary care provider, cardiology and GI doctor to follow up with his acute pincher wall [place], congestive heart failure with low ejection fraction, pericarditis, hepatitis-C, cardiomyopathy, patient will be taking medications for CAD at home. Vital Signs/Physical Exam: Temp Pulse Resp BP Pulse Ox 98.0 F 86 18 101/71 97 02/09/18 12:00 02/09/18 12:00 02/09/18 12:00 02/09/18 12:02/09/18 12:00 General: Alert, In no apparent distress HEENT: Atraumatic, PERRLA, EOMI Neck: Supple, JVD not distended Respiratory: Clear to auscultation bilaterally, Normal air movement Cardiovascular: Regular rate/rhythm, Normal S1 S2 Gastrointestinal: Normal bowel sounds, No tenderness Musculoskeletal: No tenderness Integumentary: No rashes Neurological: Normal speech, Normal tone, Normal affect Lymphatics: No axilla or inguinal lymphadenopathy Laboratory Data at Discharge: WBC 9.3 K/uL (4.3-10.9) D 02/09/18 04:43 Hgb 12.5 g/dL (13.6-17.9) L 02/09/18 04:43 Hct 35.5 % (39.6-49.0) L 02/09/18 04:43 Plt Count 257 K/uL (152-406) 02/09/18 04:43 PT 11.4 SECONDS (9.5-12.5) 02/04/18 08:25 INR 0.97 02/04/18 08:25 Sodium 140 mmol/L (136-145) 02/09/18 04:43 Potassium 3.9 mmol/L (3.5-5.1) 02/09/18 04:43 BUN 12 mg/dL (7-18) 02/09/18 04:43 Creatinine 0.70 mg/dL (0.55-1.3) 02/09/18 04:43 Glucose 171 mg/dL (74-106) H 02/09/18 04:43 Phosphorus 2.7 mg/dL (2.5-4.9) 02/08/18 05:14 Magnesium 2.3 mg/dL (1.8-2.4) 02/08/18 05:14 Total Bilirubin 0.6 mg/dL (0.2-1.0) 02/09/18 04:43 AST 88 U/L (15-37) H 02/09/18 04:43 ALT 214 U/L (12-78) H 02/09/18 04:43 Alkaline Phosphatase 129 U/L (45-117) H 02/09/18 04:43 Triglycerides 95 mg/dL (<150) 02/05/18 04:55 Cholesterol 153 mg/dL (<200) 02/05/18 04:55 HDL Cholesterol 55 mg/dL (40-60) 02/05/18 04:55 Cholesterol/HDL Ratio 2.78 02/05/18 04:55 Home Medications: Aspirin 81 mg PO DAILY #30 tab.chew 02/06/18 Atorvastatin Calcium [Lipitor] 80 mg PO BEDTIME #30 tab 02/06/18 Colchicine 0.6 mg PO BID 10 Days #20 tablet 02/06/18 Prasugrel Hydrochloride [Effient] 10 mg PO DAILY #30 tab 02/06/18 Cefdinir [Omnicef] 300 mg PO BID #14 capsule 02/08/18 Metoprolol Tartrate [Lopressor*] 50 mg PO BID #60 tab 02/08/18 metroNIDAZOLE [Flagyl] 500 mg PO Q8H #21 tablet 02/08/18 New Medications: Aspirin 81 mg PO DAILY #30 tab.chew Atorvastatin Calcium [Lipitor] 80 mg PO BEDTIME #30 tab Cefdinir [Omnicef] 300 mg PO BID #14 capsule Colchicine 0.6 mg PO BID 10 Days #20 tablet Metoprolol Tartrate [Lopressor*] 50 mg PO BID #60 tab metroNIDAZOLE [Flagyl] 500 mg PO Q8H #21 tablet Prasugrel Hydrochloride [Effient] 10 mg PO DAILY #30 tab Patient Discharge Instructions: OK TO DC IV AND DC HOME IF DOES WELL WITH PT. FOLLOW-UP WITH PRIMARY CARE PROVIDER IN 1-2 WEEKS. FOLLOW-UP WITH CARDIOLOGY IN 1 WEEK. FOLLOW-UP WITH SURGERY IN 2-4 WEEKS. RETURN TO THE ER IF CHEST PAIN OR RESPIRATORY STATUS WORSENS. CALL or TEXT DR. RAYMOND AT [phone] IF ANY QUESTIONS REGARDING HOSPITAL STAY. PLEASE CALL THE FLOOR AT [phone] IF ANY MEDICATION OR NURSING QUESTIONS. Diet: AHA Activity: Fall precautions Followup: Erickson Castillo MD [ACTIVE - CAN ADMIT] - (follow up next week, call to schedule appointment) Dave Khan MD [ACTIVE - CAN ADMIT] - 1 Week (Call to schedule an appointment)
--- NOTE | 2018-02-10 08:06 | ECHO ---
HEIGHT: 5 ft 4 in WEIGHT: 209 lb 4 oz DATE OF STUDY: 02/07/[address]: Abner Damon MD 2-DIMENSIONAL: YES M.MODE: YES DOPPLER: YES COLOR FLOW: YES TDS: NO PORTABLE: NO DEFINITY: NO BUBBLE STUDY: NO DIAGNOSIS: PERICARDIAL EFFUSION CARDIAC HISTORY: CATHERIZATION: NO SURGERY: NO PROSTHETIC VALVE: NO PACEMAKER: NO MEASUREMENTS (cm) DIASTOLIC (NORMALS) SYSTOLIC (NORMALS) IVSd 1.1 (0.6-1.2) LA Diam 3.6 (1.9-4.0) LVEF 35% LVIDd 4.7 (3.5-5.7) LVIDs 4.1 (2.0-3.5) %FS 13% LVPWd 1.1 (0.6-1.2) Ao Diam 3.2 (2.0-3.7) 2 DIMENSIONAL ASSESSMENT: RIGHT ATRIUM: NORMAL LEFT ATRIUM: NORMAL RIGHT VENTRICLE: NORMAL LEFT VENTRICLE: NORMAL SIZE TRICUSPID VALVE: NORMAL MITRAL VALVE: NORMAL PULMONIC VALVE: NORMAL AORTIC VALVE: NORMAL PERICARDIAL EFFUSION: SMALL AORTIC ROOT: ZAINAB LEFT VENTRICULAR WALL MOTION: ANTEROAPICAL AKINESISS. DOPPLER/COLOR FLOW: MILD TRICUPSID REGURGITATION. COMMENTS: SMALL PERICARDIAL EFFUSION. NO TAMPONADE. ANTEROAPICAL AKINESISS. LEFT VENTRICULAR EJECTION FRACTION 35%. MILD TRICUPSID REGURGITATION. TECHNOLOGIST: Cassie BHANDARI
[2018-02-10 15:50] LABS: Hepatitis C Virus RNA (PCR)log 7.05 log IU/mL
== END 2018-02-09 13:20 | disposition home or self-care (01) | DRG 246 ==
LOC: ER 08:17 → UNDOADMIN 08:41 → ERHOLD 08:41 → 3RD-ICU 12:19 → 4TH 02-05 11:20
PROVIDERS: ADMIT Family Medicine; ATTEND Family Medicine
PROC: 027034Z Dilation of Coronary Artery, One Artery with Drug-eluting Intraluminal Device, Percutaneous Approach (ICD-10-PCS; principal; 2018-02-05)
PROC: 4A023N7 Measurement of Cardiac Sampling and Pressure, Left Heart, Percutaneous Approach (ICD-10-PCS; 2018-02-05)
PROC: B2111ZZ Fluoroscopy of Multiple Coronary Arteries using Low Osmolar Contrast (ICD-10-PCS; 2018-02-05)
PROC: B2151ZZ Fluoroscopy of Left Heart using Low Osmolar Contrast (ICD-10-PCS; 2018-02-05)
DX: I21.02 ST elevation (STEMI) myocardial infarction involving left anterior descending coronary artery (principal); I50.21 Acute systolic (congestive) heart failure; K80.10 Calculus of gallbladder with chronic cholecystitis without obstruction; I30.9 Acute pericarditis, unspecified; I25.5 Ischemic cardiomyopathy; E78.5 Hyperlipidemia, unspecified; Z79.82 Long term (current) use of aspirin; I11.0 Hypertensive heart disease with heart failure; F17.210 Nicotine dependence, cigarettes, uncomplicated; B19.20 Unspecified viral hepatitis C without hepatic coma
CPT/HCPCS: 36415; 71045; 71275; 74181; 76705; 80048; 80053; 80061; 80074; 80076; 80307; 81003; 82248; 82805; 82962; 83036; 83735; 84100; 84443; 84484; 85025; 85347; 85610; 87522; 92928; 93005; 93306; 93458; 94760; 97163; 99285; C1725; C1760; C1877; C1893; J0583; J0696; J0744; J1644; J1940; J2001; J2250; J2405; J3010; J7030; J7060; Q9967

== ENCOUNTER 2018-03-02 10:05 | Observation (INO) | payer OTHER ==
[2018-03-02 11:07] LABS: Absolute Lymphocytes (CBC) 3.5 K/uL (0.7-4.9); Absolute Monocytes 1.2 K/uL (0.1-1.3); Absolute Neutrophil 8.1 K/uL (1.8-8.0); Basophils % 0.3 % (0-1.3); Eosinophils % 0.3 % (0-4.4); Hematocrit 41.3 % (39.6-49.0); Lymphocytes % 27.5 % (15.3-44.8); MCH 28.4 pg (27.0-35.0); MCV 83.7 fL (80-100); MPV 8.8 fL (7.6-11.3); RBC Red Blood Cell Count 4.93 M/uL (4.33-5.43)
[2018-03-02 11:13] LABS: Protime INR 0.97
[2018-03-02] MEDS ORDERED: NITROGLYCERIN 0.4 MG/TAB SL ONE (11:16)
[2018-03-02] MEDS ORDERED: NA CHLORIDE 0.9% 500 ML ONE (11:24)
[2018-03-02] MEDS ORDERED: FENTANYL CITR 100 MCG/2 ML ONE (11:24)
[2018-03-02 11:29] LABS: ALT/SGPT 50 U/L (12-78); AST/SGOT 23 U/L (15-37); Albumin 3.1 g/dL (3.4-5.0); Alkaline Phosphatase 69 U/L (45-117); BUN Blood Urea Nitrogen 16 mg/dL (7-18); Bicarbonate 27 mmol/L (21-32); Bilirubin Direct 0.3 mg/dL (0-0.2); Bilirubin Total 0.8 mg/dL (0.2-1.0); CKMB Creatine Kinase MB 1.1 ng/mL (0.3-3.6); Creatine Phosphokinase 30 U/L (39-308); Glucose Level 245 mg/dL (74-106); Magnesium 1.6 mg/dL (1.8-2.4); NT PRO-BNP 4257 pg/mL (<125); Potassium 4.2 mmol/L (3.5-5.1); Protein, Total 7.7 g/dL (6.4-8.2); Sodium Level 138 mmol/L (136-145)
[2018-03-02] MEDS ORDERED: MAGNESIUM SULFATE 1 gm IVPB 1 GM/100 ML BAG IV ONE (12:09)
--- NOTE | 2018-03-02 12:13 | RAD REPORT ---
EXAM DESCRIPTION: CT - Chest For Pe Angio - 03/02/2018 12:01 pm CLINICAL HISTORY: Chest pain, cough, shortness of breath COMPARISON: Chest pain same date, PE study February 07 TECHNIQUE: Dynamically enhanced 3 mm thick images of the chest were obtained during administration o f approximately 150mL Isovue 370 IV contrast. Coronal and oblique reconstruction images were generate d and reviewed. Exam utilizes a protocol to evaluate the pulmonary arterial tree. All CT scans are performed using dose optimization technique as appropriate and may include automated exposure control or mA/KV adjustment according to patient size. FINDINGS: No pulmonary emboli are identified. The aorta as imaged shows no acute or suspicious finding. Prominent pericardial effusion present shi lar to January. No focal mass or infiltrate. Interstitial markings are prominent and could be edema or infiltrate. Bi lateral pleural effusions are present, left greater than right, with both decreased in volume from Ju ly . No mediastinal or hilar suspicious masses. No chest wall masses or abnormal axillary lymphadenopathy. IMPRESSION: No pulmonary emboli identified. Prominent pericardial effusion similar to the February 07 study. Left greater than right pleural effusions small in size and decreased from February 07. Overall prominence of the interstitial markings from edema or infiltrate.
--- NOTE | 2018-03-02 12:15 | RAD REPORT ---
EXAM DESCRIPTION: RAD - Chest Single View - 03/02/2018 11:00 am CLINICAL HISTORY: Chest pain COMPARISON: February 05 TECHNIQUE: AP portable chest image was obtained 1033 hours . FINDINGS: No peripheral mass or consolidation. Interstitial markings are prominent and could reflect interstitial edema or infiltrate. Heart size is normal limits. Trachea is midline. No pneumothorax o r enlarging pleural effusion. Left pleural fluid is suspected. No gross bony abnormality seen. No acu te aortic findings suspected. IMPRESSION: Small left pleural effusion. Diffuse interstitial opacification from edema or infiltrate.
--- NOTE | 2018-03-02 12:36 | ER ---
Nurse's Notes [facility] Name: Addison Andrews Age: 58 yrs Sex: Male : 1960 Arrival Date: 03/02/2018 Time: 10:08 Bed 13 Private MD: Zev Villagomez E Diagnosis: Chest pain, unspecified;Shortness of breath Presentation: 03/02 10:15 Initial Sepsis Screen: Does the patient meet any 2 criteria? No. Patient's initial rb1 sepsis screen is negative. Does the patient have a suspected source of infection? No. Patient's initial sepsis screen is negative. 10:17 Presenting complaint: Patient states: Chest tightness, nonproductive cough, pain with hb cough, and SOB x 1 week, worse over last 3 days. Denies fever. Pain is worse when supine. Transition of care: patient was not received from another setting of care. Onset of symptoms was March 02, 2018. Risk Assessment: Do you want to hurt yourself or someone else? Patient reports no desire to harm self or others. Care prior to arrival: None. 10:17 Method Of Arrival: Ambulatory hb 10:17 Acuity: DUKE 3 hb Historical: - Allergies: 10:20 NKA; hb - Home Meds: 10:20 atorvastatin oral oral [Active]; Metronidazole Oral [Active]; metoprolol succinate oral hb oral [Active]; Colchicine Oral [Active]; aspirin Oral [Active]; - PMHx: 10:20 Diabetes - NIDDM; Hypertension; hb - PSHx: 10:20 Heart stents; hb - Immunization history:: Adult Immunizations up to date. - Social history:: Smoking status: Patient/guardian denies using tobacco, the patient reports quitting approximately .25 years ago. - Ebola Screening: : No symptoms or risks identified at this time. Screenin:20 Abuse screen: Denies threats or abuse. Denies injuries from another. Nutritional hb screening: No deficits noted. Tuberculosis screening: No symptoms or risk factors identified. Fall Risk None identified. Assessment: 10:15 General: Appears uncomfortable, Behavior is calm, cooperative. Pain: Complains of pain rb1 in anterior aspect of right upper chest and anterior aspect of left upper chest Pain radiates to back between the shoulders Pain currently is 4 out of 10 on a pain scale. Pain began x 3 days. Neuro: Level of Consciousness is awake, alert, obeys commands, Oriented to person, place, time, situation. Cardiovascular: Capillary refill < 3 seconds is brisk in bilateral fingers. Respiratory: Airway is patent Respiratory effort is even, unlabored, Respiratory pattern is regular, symmetrical. GI: Reports nausea. : No signs and/or symptoms were reported regarding the genitourinary system. Derm: Skin is pink, warm \T\ dry. 11:00 Reassessment: Nitroglycerin order was held due to low BP 98/74; provider notified. rb1 12:00 Reassessment: Patient appears in no apparent distress at this time. Patient and/or rb1 family updated on plan of care and expected duration. Pain level reassessed. Patient is alert, oriented x 3, equal unlabored respirations, skin warm/dry/pink. 13:00 Reassessment: Patient appears in no apparent distress at this time. No changes from rb1 previously documented assessment. 14:00 Reassessment: Patient appears in no apparent distress at this time. Patient and/or rb1 family updated on plan of care and expected duration. Pain level reassessed. Patient is alert, oriented x 3, equal unlabored respirations, skin warm/dry/pink. Pt. is playing on his phone. 15:00 Reassessment: Patient appears in no apparent distress at this time. No changes from rb1 previously documented assessment. Vital Signs: 10:18 BP 111 / 82; Pulse 85; Resp 18; Temp 98.4; Pulse Ox 97% on R/A; Pain 5/10; hb 10:31 BP 97 / 71; Pulse 86; Resp 19; Pulse Ox 97% on R/A; Pain 4/10; rb1 10:45 BP 103 / 73; Pulse 85; Resp 18; Pulse Ox 97% on R/A; rb1 11:00 BP 98 / 74; Pulse 86; Resp 17; Pulse Ox 97% on R/A; rb1 12:00 BP 107 / 79; Pulse 87; Resp 20; Pulse Ox 96% on R/A; rb1 13:00 BP 111 / 83; Pulse 88; Resp 16; Pulse Ox 97% on R/A; rb1 14:00 BP 107 / 82; Pulse 84; Resp 23; Pulse Ox 96% on R/A; rb1 15:00 BP 103 / 86; Pulse 88; Resp 21; Pulse Ox 98% on R/A; Pain 2/10; rb1 ED Course: 10:08 Patient arrived in ED. sb2 10:09 Zev Villagomez MD is Private Physician. sb2 10:13 Iban Ness, [facility] pm1 10:13 Garry Castillo MD is Attending Physician. pm1 10:15 Belinda Rodriguez, RN is Primary Nurse. rb1 10:15 Patient has correct armband on for positive identification. Placed in gown. Bed in low rb1 position. Call light in reach. Side rails up X 1. blindstitch machine operator on. Pulse ox on. NIBP on. 10:18 Triage completed. hb 10:18 Arm band placed on right wrist. hb 10:48 Initial lab(s) drawn, by me, sent to lab. EKG done, by ED staff, reviewed by Iban em1 Grover MANAGER MARIT[employer]. Inserted saline lock: 20 gauge in right antecubital area, using aseptic technique. Blood collected. 10:56 X-ray completed. Portable x-ray completed in exam room. Patient tolerated procedure la2 well. 11:00 XRAY Chest (1 view) In Process Unspecified. EDMS 12:00 CT completed. Patient tolerated procedure well. Patient moved back from CT. kw1 12:01 CT Chest For PE Angio In Process Unspecified. EDMS 12:36 Mike Aguilar DO is Hospitalizing Provider. pm1 14:54 No provider procedures requiring assistance completed. Patient admitted, IV remains in sg place. intact, No redness/swelling at site. Administered Medications: 11:25 Drug: NS 0.9% 500 ml Route: IV; Rate: bolus; Site: right antecubital; rb1 12:08 Follow up: IV Status: Completed infusion rb1 11:25 Drug: fentaNYL (PF) 25 mcg Route: IVP; Site: right antecubital; rb1 11:40 Follow up: Response: No adverse reaction; Pain is decreased rb1 12:26 Drug: Magnesium Sulfate 1 grams Route: IVPB; Infused Over: 1 hrs; Site: right rb1 antecubital; 13:38 Follow up: IV Status: Completed infusion rb1 15:05 Not Given (provider discretion): Nitroglycerin 0.4 mg Sublingual once; every five rb1 minute if needed x3 Outcome: 12:36 Decision to Hospitalize by Provider. pm1 14:52 Admitted to Tele accompanied by chari, via stretcher, room 409, with chart, Report sg called to Tiffany GASTON 14:52 Condition: stable 14:52 Instructed on the need for admit, Demonstrated understanding of instructions. 15:10 Patient left the ED. rb1 Signatures: Dispatcher [employer] EDMS Kj Cortés RN RN Luis A Day em1 Belinda Rodriguez RN RN rb1 Iban Ness, MANAGER MARITIME MANAGER MARITIME pm1 Jessica Tillman RN RN Yola Paige2 Rose Vance1 Carolina Garay2 Corrections: (The following items were deleted from the chart) 15:30 15:29 Patient left the ED. rb1 rb1
--- NOTE | 2018-03-02 12:37 | EDPHYS ---
Physician Documentation [facility] Name: Addison Andrews Age: 58 yrs Sex: Male : 1960 Arrival Date: 03/02/2018 Time: 10:08 Bed 13 Private MD: Zev Villagomez E ED Physician Garry Castillo HPI: 03/02 11:00 This 58 yrs old Male presents to ER via Ambulatory with complaints of Chest pm1 pain and shortness of breath. 11:00 The patient or guardian reports chest pain that is located primarily in the mid-sternal pm1 area. Onset: 3 day(s) ago. The pain radiates to from sternum to left and right chest and to mid back. Associated signs and symptoms: Pertinent positives: shortness of breath, Pertinent negatives: abdominal pain, cough, dizziness, nausea, palpitations, vomiting. The chest pain is described as a pressure. Duration: The patient or guardian reports multiple episodes. Modifying factors: The symptoms are alleviated by Sitting up. the symptoms are aggravated by worse with lying down. Severity of pain: in the emergency department the pain is actually worse. The patient has been recently been admitted at [facility], 02/04/2018 for STEMI, single stent to LAD. Patient reports compliance with medications and has stopped smoking since CT. Patient seen by Dr. Villagomez on 02/19/2018 for follow up post admission. Patient without any complaints at follow up visit.. Historical: - Allergies: 10:20 NKA; hb - Home Meds: 10:20 atorvastatin oral oral [Active]; Metronidazole Oral [Active]; metoprolol succinate oral hb oral [Active]; Colchicine Oral [Active]; aspirin Oral [Active]; - PMHx: 10:20 Diabetes - NIDDM; Hypertension; hb - PSHx: 10:20 Heart stents; hb - Immunization history:: Adult Immunizations up to date. - Social history:: Smoking status: Patient/guardian denies using tobacco, the patient reports quitting approximately .25 years ago. - Ebola Screening: : No symptoms or risks identified at this time. ROS: 11:00 Constitutional: Negative for fever, chills, and weight loss, Eyes: Negative for injury, pm1 pain, redness, and discharge, ENT: Negative for injury, pain, and discharge, Neck: Negative for injury, pain, and swelling. 11:00 Abdomen/GI: Negative for abdominal pain, nausea, vomiting, diarrhea, and constipation, Back: Negative for injury and pain, : Negative for injury, bleeding, discharge, and swelling, MS/Extremity: Negative for injury and deformity, Skin: Negative for injury, rash, and discoloration, Neuro: Negative for headache, weakness, numbness, tingling, and seizure. 11:00 Cardiovascular: Positive for chest pain, orthopnea, Negative for edema, palpitations. 11:00 Respiratory: Positive for shortness of breath, Negative for cough, sputum production, wheezing. Exam: 11:00 Constitutional: This is a well developed, well nourished patient who is awake, alert, pm1 and in no acute distress. Head/Face: Normocephalic, atraumatic. Eyes: Pupils equal round and reactive to light, extra-ocular motions intact. Lids and lashes normal. Conjunctiva and sclera are non-icteric and not injected. Cornea within normal limits. Periorbital areas with no swelling, redness, or edema. ENT: Nares patent. No nasal discharge, no septal abnormalities noted. Tympanic membranes are normal and external auditory canals are clear. Oropharynx with no redness, swelling, or masses, exudates, or evidence of obstruction, uvula midline. Mucous membranes moist. Neck: Trachea midline, no thyromegaly or masses palpated, and no cervical lymphadenopathy. Supple, full range of motion without nuchal rigidity, or vertebral point tenderness. No Meningismus. Chest/axilla: Normal chest wall appearance and motion. Nontender with no deformity. No lesions are appreciated. Cardiovascular: Regular rate and rhythm with a normal S1 and S2. No gallops, murmurs, or rubs. No pulse deficits. Respiratory: Lungs have equal breath sounds bilaterally, clear to auscultation and percussion. No rales, rhonchi or wheezes noted. No increased work of breathing, no retractions or nasal flaring. Abdomen/GI: Soft, non-tender, with normal bowel sounds. No distension or tympany. No guarding or rebound. No evidence of tenderness throughout. Back: No spinal tenderness. No costovertebral tenderness. Full range of motion. Skin: Warm, dry with normal turgor. Normal color with no rashes, no lesions, and no evidence of cellulitis. MS/ Extremity: Pulses equal, no cyanosis. Neurovascular intact. Full, normal range of motion. 11:00 Neuro: Orientation: is normal, Motor: is normal, moves all fours, Gait: is steady, at a normal pace, without difficulty. Vital Signs: 10:18 BP 111 / 82; Pulse 85; Resp 18; Temp 98.4; Pulse Ox 97% on R/A; Pain 5/10; hb 10:31 BP 97 / 71; Pulse 86; Resp 19; Pulse Ox 97% on R/A; Pain 4/10; rb1 10:45 BP 103 / 73; Pulse 85; Resp 18; Pulse Ox 97% on R/A; rb1 11:00 BP 98 / 74; Pulse 86; Resp 17; Pulse Ox 97% on R/A; rb1 12:00 BP 107 / 79; Pulse 87; Resp 20; Pulse Ox 96% on R/A; rb1 13:00 BP 111 / 83; Pulse 88; Resp 16; Pulse Ox 97% on R/A; rb1 14:00 BP 107 / 82; Pulse 84; Resp 23; Pulse Ox 96% on R/A; rb1 15:00 BP 103 / 86; Pulse 88; Resp 21; Pulse Ox 98% on R/A; Pain 2/10; rb1 MDM: 10:13 Patient medically screened. pm1 12:32 Data reviewed: vital signs. Data interpreted: Pulse oximetry: on room air is 96 %. pm1 Interpretation: normal. Counseling: I had a detailed discussion with the patient and/or guardian regarding: the historical points, exam findings, and any diagnostic results supporting the discharge/admit diagnosis, lab results, radiology results, the need for further work-up and treatment in the hospital. 13:07 Physician consultation: Mike Aguilar DO was contacted at 13:07, regarding admission, pm1 would like further tests performed, CRP, sed rate, and Hemoglobin A1c, in the emergency department to see patient at 13:08. 03/02 10:26 Order name: Basic Metabolic Panel; Complete Time: 11:32 pm03/02 10:26 Order name: CBC with Diff; Complete Time: 11:11 pm03/02 10:26 Order name: Ckmb; Complete Time: 11:32 pm03/02 10:26 Order name: CPK; Complete Time: 11:32 pm03/02 10:26 Order name: LFT's; Complete Time: 11:32 pm03/02 10:26 Order name: Magnesium; Complete Time: 11:32 pm03/02 10:26 Order name: NT PRO-BNP; Complete Time: 11:32 pm03/02 10:26 Order name: PT-INR; Complete Time: 11:31 pm03/02 10:26 Order name: Ptt, Activated; Complete Time: 11:31 pm03/02 10:26 Order name: Troponin (emerg Dept Use Only); Complete Time: 11:31 pm03/02 12:26 Order name: Procalcitonin; Complete Time: 15:26 pm03/02 12:26 Order name: Blood Culture Adult (2) pm03/02 13:07 Order name: Sed Rate; Complete Time: 15:26 pm03/02 13:07 Order name: CRP; Complete Time: 15:26 pm03/02 10:26 Order name: XRAY Chest (1 view); Complete Time: 12:17 pm03/02 10:26 Order name: EKG; Complete Time: 10:27 pm03/02 10:26 Order name: Cardiac monitoring; Complete Time: 11:22 pm03/02 10:26 Order name: EKG - Nurse/Tech; Complete Time: 10:48 pm03/02 10:26 Order name: IV Saline Lock; Complete Time: 10:48 pm03/02 10:26 Order name: Labs collected and sent; Complete Time: 10:48 pm03/02 10:26 Order name: O2 Per Protocol; Complete Time: 11:22 pm03/02 10:26 Order name: O2 Sat Monitoring; Complete Time: 11:22 pm03/02 10:26 Order name: Urine Dipstick-Ancillary (obtain specimen) pm03/02 11:42 Order name: CT Chest For PE Angio; Complete Time: 12:17 pm03/02 13:07 Order name: HgA1c pm1 Administered Medications: 11:25 Drug: NS 0.9% 500 ml Route: IV; Rate: bolus; Site: right antecubital; rb1 12:08 Follow up: IV Status: Completed infusion rb1 11:25 Drug: fentaNYL (PF) 25 mcg Route: IVP; Site: right antecubital; rb1 11:40 Follow up: Response: No adverse reaction; Pain is decreased rb1 12:26 Drug: Magnesium Sulfate 1 grams Route: IVPB; Infused Over: 1 hrs; Site: right rb1 antecubital; 13:38 Follow up: IV Status: Completed infusion rb1 15:05 Not Given (provider discretion): Nitroglycerin 0.4 mg Sublingual once; every five rb1 minute if needed x3 Disposition: 17:51 Co-signature as Attending Physician, Garry Castillo MD. rn Disposition: 03/02/18 12:36 Hospitalization ordered by Mike Aguilar for Observation. Preliminary diagnosis are Chest pain, unspecified, Shortness of breath. - Bed requested for Telemetry/MedSurg (observation). - Status is Observation. rb1 - Condition is Stable. - Problem is new. - Symptoms have improved. UTI on Admission? No Signatures: Dispatcher [employer] EDMS Garry Castillo MD MD rn Barber, Rebecca, RN RN rb1 Iban Ness, METER REPAIRER METER REPAIRER pm1 Jessica Tillman RN RN Rosa Del Valle RN RN df Radha Lainez Corrections: (The following items were deleted from the chart) 14:02 12:36 Hospitalization Ordered by Mike Aguilar DO for Observation. Preliminary eb diagnosis is Chest pain, unspecified; Shortness of breath. Bed requested for Telemetry/MedSurg (observation). Status is Observation. Condition is Stable. Problem is new. Symptoms have improved. UTI on Admission? No. pm1 14:16 14:02 03/02/2018 12:36 Hospitalization Ordered by Mike Aguilar DO for Observation. df Preliminary diagnosis is Chest pain, unspecified; Shortness of breath. Bed requested for Telemetry/MedSurg (observation). Status is Observation. Condition is Stable. Problem is new. Symptoms have improved. UTI on Admission? No. eb 15:29 14:16 03/02/2018 12:36 Hospitalization Ordered by Mike Aguilar DO for Observation. rb1 Preliminary diagnosis is Chest pain, unspecified; Shortness of breath. Bed requested for Telemetry/MedSurg (observation). Status is Observation. Condition is Stable. Problem is new. Symptoms have improved. UTI on Admission? No. df
[2018-03-02] MEDS ORDERED: ACETAMINOPHEN 500 MG TAB PO PRN (13:00)
[2018-03-02] MEDS ORDERED: TRAMADOL HCL 50 MG TAB PO PRN (13:00)
[2018-03-02] MEDS ORDERED: IPRATROPIUM BROM 0.5MG/2.5ML NEB PRN (13:00)
[2018-03-02] MEDS ORDERED: ONDANSETRON 4 MG/2 ML VIAL IV PRN (13:00)
[2018-03-02] MEDS ORDERED: ALBUTEROL 2.5 MG/3 ML NEB SOL NEB PRN (13:00)
--- NOTE | 2018-03-02 13:25 | P.HP ---
Certification for Inpatient Patient admitted to: Observation With expected LOS: <2 Midnights Patient will require the following post-hospital care: None Practitioner: I am a practitioner with admitting privileges, knowledge of patient current condition, hospital course, and medical plan of care. Services: Services provided to patient in accordance with Admission requirements found in Title 42 Section 412.3 of the Code of Federal Regulations Patient History Date of Service: 03/02/18 Primary Care Provider: Dr. Villagomez; Cardiology-Dr. Castillo Reason for admission: chest pain and shortness of breath History of Present Illness: 58 yo CM presented to the ER with chest pain and shortness of breath. He was recently hospitalized on 02/04/2018 for an acute anterior [place]. On that day hew as immediately taken for heart catheterization. He was found to have normal RCA and circumflex, but he was found to have totally occluded LAD. He has a stent placed at that time. He was also found to have CHF with EF of 35% and a small pericardial effusion. He was noted in having pleural effusion. Other new findings was DM and hepatitis. It was thought that he may also had pericarditis. He was sent home with ASA, Effient, Metoprolol, Lipitor and Colchocine. Since the last 3 days he has noted increased shortness of breath and chest pain. Chest pain is mainly to the center of the chest and is diffuse. It radiates to both sides. He is not able to get comfortable. Pain is worse when lying down. No fever or chills noted. No nausea or vomiting noted. He came to the ER for evaluation. In the ER CXR showed pulmonary edema suspicious for CHF. CT chest showed left greater than right pleural effusion. Prominent pericardial effusion noted but unchanged since January. BNP elevated at 4257, Mag 1.6, Trop 0.02 and WBC 12.8. He was admitted for further treatment. When I saw him in the ER, he remained stable. BP around 110 sys. HR stable. He was not in respiratory distress. He admits history of alcohol and tobacco but quit last month. He has DM but not taking medication. He has CHF but not on diurectic therapy. He is to see GI soon to address his new diagnosis of Hepatitis C. He does not take any medication for possible COPD Allergies No Known Allergies Allergy (Unverified 02/04/18 09:03) Home medications list reviewed: Yes Home Medications: Aspirin 81 mg PO DAILY #30 tab.chew 02/06/18 Atorvastatin Calcium [Lipitor] 80 mg PO BEDTIME #30 tab 02/06/18 Colchicine 0.6 mg PO BID 10 Days #20 tablet 02/06/18 Prasugrel Hydrochloride [Effient] 10 mg PO DAILY #30 tab 02/06/18 Cefdinir [Omnicef] 300 mg PO BID #14 capsule 02/08/18 Metoprolol Tartrate [Lopressor*] 50 mg PO BID #60 tab 02/08/18 metroNIDAZOLE [Flagyl] 500 mg PO Q8H #21 tablet 02/08/18 - Past Medical/Surgical History Diabetic: Yes -: DM Type 2 -: HTN -: Hyperlipidemia -: CAD, Stent to LAD(01/2018) -: Hepatitis C -: Former tobacco use -: Former alcohol use -: COPD -: Jaw surgery (broken jaw) -: Heel surgery Psychosocial/ Personal History: He is . He has 1 child. He does not work - Family History Mother -: Heart disease Notes: suddenly from heart attack. Father -: Cancer, Liver disease Notes: liver cancer/ alcoholic - Social History Smoking Status: Former smoker Alcohol use: No CD- Drugs: No Caffeine use: No Place of Residence: Home Review of Systems General: As per HPI Eyes: Unremarkable ENT: Unremarkable Respiratory: Shortness of Breath, SOB with Excertion, As per HPI Cardiovascular: Chest Pain, As per HPI Gastrointestinal: Unremarkable Genitourinary: Unremarkable Musculoskeletal: Back Pain, Unremarkable Integumentary: Unremarkable Neurological: Unremarkable Lymphatics: Unremarkable Physical Examination - Physical Exam General: Alert, In no apparent distress, Oriented x3, Cooperative HEENT: Atraumatic, Normocephalic, PERRLA, Mucous membr. moist/pink Neck: Supple, No Thyromegaly Respiratory: Diminished ( bilaterally), Expiratory wheezes (minimal ) Cardiovascular: Normal pulses, Regular rate/rhythm Gastrointestinal: Normal bowel sounds, Soft and benign, Non-distended, No ascites, No tenderness, No masses, No rebound, No guarding Musculoskeletal: No erythema, No tenderness, No warmth Integumentary: No tenderness/swelling, No erythema, No warmth, No cyanosis Neurological: Normal speech, Normal strength at 5/5 x4 extr, Normal tone, Normal affect Lymphatics: No axilla or inguinal lymphadenopathy - Studies Laboratory Data (last 24 hrs) 03/02/18 10:45: PT 11.5, INR 0.97, APTT 29.1 03/02/18 10:45: WBC 12.8 H, Hgb 14.0, Hct 41.3, Plt Count 313 03/02/18 10:45: Sodium 138, Potassium 4.2, BUN 16, Creatinine 0.70, Glucose 245 H, Magnesium 1.6 L D, Total Bilirubin 0.8, AST 23, ALT 50, Alkaline Phosphatase 69 Assessment and Plan - Problems (Diagnosis) (1) Chest pain Current Visit: Yes Status: Acute Plan: Likely multifactorial. Recent 02/04/2018 heart cath for Acute anterior [place] with placement of stent to LAD for complete occlusion. He was found to have CHF with EF of 35% and small pericardial effusion at that time. He was sent home with ASA , Effient, Metoprolol, Lipitor and Colchicine(for 10days). I suspect Chest pain and SOB maybe related to CHF, systolic [id number]%, exacerbation complicated with possible pericarditis and suspect COPD exacerbation with bilateral effusion. Will consult Cardiology and Pulmonary to further address. Will start Lasix 20 mg IV BID for CHF/Pleural effusion and pericardial effusion. Will also start SoluMedrol for COPD exacerbation and Pericarditis. Will check CRP, ESR and Procalcitonin. Will also start medication for COPD. He is a former smoker and no longer drinks alcohol. He also has Hepatitis C which is a new diagnosis. He has DM that is not treated, therefore will start insulin. Last A1c was 8.8. Will order ECHO to assess pericardial effusion tomorrow. Will recheck CXR in the am. Await recommendation from Cardiology and Pulmonary. (2) Shortness of breath Current Visit: Yes Status: Acute Plan: as above. Likely sys. CHF and COPD exacerbation complicated with suspected pericarditis, bilateral pleural effusions, and recent CAD-stent to LAD. (3) CHF (congestive heart failure) Current Visit: Yes Status: Acute Plan: Continue as above. Will start Lasix. Monitor CXR. Obtain ECHO. Consult Cardiology. Qualifiers: Heart failure type: systolic Heart failure chronicity: acute on chronic Qualified Code(s): I50.23 - Acute on chronic systolic (congestive) heart failure (4) Pleural effusion Current Visit: Yes Status: Acute Plan: as above. Will start Lasix. Recheck CXR. Consult Pulmonary (5) Pericardial effusion Current Visit: Yes Status: Suspected Plan: Will check CRP, ESR. Will start Solumedrol. ECHO obtained. Cardiology consulted. (6) CAD (coronary artery disease) Current Visit: Yes Status: Chronic Plan: Recent stent to LAD for total occlusion on 02/04/2018. Will monitor cardiac enzymes. Consult Cardiology. Continue with Effient, Decrease Metoprolol, Restart Lipitor. (7) HTN (hypertension) Current Visit: Yes Status: Chronic Plan: Will decrease Metoprolol. Will monitor and adjust Qualifiers: Hypertension type: essential hypertension Qualified Code(s): I10 - Essential (primary) hypertension (8) Hyperlipidemia Current Visit: Yes Status: Chronic Plan: Continue with Lipitor. (9) COPD (chronic obstructive pulmonary disease) Current Visit: Yes Status: Suspected Plan: Will start Solumedrol and COPD mediation. Recheck CXR in the am. Will consult Pulmonary to address. Qualifiers: COPD type: COPD with acute exacerbation Qualified Code(s): J44.1 - Chronic obstructive pulmonary disease with (acute) exacerbation (10) Diabetes mellitus Current Visit: Yes Status: Chronic Plan: Patient not aware of his diagnosis. Will teach on DM. Will start insulin sliding scale. Qualifiers: Diabetes mellitus type: type 2 Diabetes mellitus terminal carman insulin use: without senior living use Diabetes mellitus complication status: with other specified complication Qualified Code(s): E11.69 - Type 2 diabetes mellitus with other specified complication (11) Hepatitis C Current Visit: Yes Status: Chronic Plan: Will see GI as outpatient to address. Qualifiers: Viral hepatitis chronicity: chronic Hepatic coma status: without hepatic coma Qualified Code(s): B18.2 - Chronic viral hepatitis C (12) Pericarditis Current Visit: Yes Status: Suspected Plan: Will order CRP, ESR. Will start Solumedrol. Consult Cardiology. Obtain ECHO. Blood cultures obtained. Qualifiers: Pericarditis type: idiopathic (13) Cholelithiasis Current Visit: No Status: Chronic Plan: Recently evaluated by Surgery. This can be addressed as outpatient 6 months after January 2018 [place]/stent. Qualifiers: Cholelithiasis location: gallbladder Cholecystitis presence: with cholecystitis Cholecystitis acuity: unspecified acuity Biliary obstruction: without biliary obstruction Qualified Code(s): K80.10 - Calculus of gallbladder with chronic cholecystitis without obstruction (14) Former tobacco use Current Visit: Yes Status: Chronic Plan: May need nicotine patch. (15) Former consumption of alcohol Current Visit: Yes Status: Chronic Plan: He no longer drinks alcohol. Discharge Plan: Home Plan to discharge in: 24 Hours - Advance Directives Does patient have a Living Will: No Does patient have a Durable POA for Healthcare: No - Code Status/Comfort Care Code Status Assessed: Yes Time Spent Managing Pts Care (In Minutes): 55
--- NOTE | 2018-03-02 15:15 | EKG ---
Test Date: 2018-03-02 Test Time: 10:36:26 Gun Mechanic: VITOR MEASUREMENT RESULTS: Intervals: Rate: 86 LA: 134 QRSD: 84 QT: 382 QTc: 457 Jenison: P: 42 LA: 134 QRS: 65 T: 130 INTERPRETIVE STATEMENTS: Normal sinus rhythm Anteroseptal infarct, age undetermined T wave abnormality, consider inferolateral ischemia Abnormal ECG Compared to ECG 02/05/2018 07:44:26 T-wave abnormality now present Possible ischemia now present Sinus tachycardia no longer present Myocardial infarct finding still present Electronically Signed On 03-02-18 15:14:57 CDT by Too Dawson
[2018-03-02] MEDS: INSULIN -REGULAR HUMAN 50 UNIT/0.5 ML ML SQ SCH ×2 (15:57→21:24)
[2018-03-02 16:38] VITALS: BMI 34.0
[2018-03-02] MEDS: ENOXAPARIN 40 MG/0.4 ML SQ SCH (17:40)
[2018-03-02] MEDS: FUROSEMIDE 20 MG/ 2ML VIAL IV SCH (17:49)
[2018-03-02] MEDS: METOPROLOL TAR 25 MG TAB PO SCH (18:47)
[2018-03-02] MEDS: HYDROCODONE/APAP 7.5/325 MG TAB PO PRN (18:51)
[2018-03-02] MEDS: ARFORMOTEROL TARTRATE 15 MCG/2 ML VIAL.NEB NEB SCH (19:19)
[2018-03-02 19:59] LABS: Urine Appearance CLEAR; Urine Bilirubin NEGATIVE (NEG); Urine Blood NEGATIVE (NEG); Urine Color YELLOW; Urine Glucose NEGATIVE (NEG); Urine Protein NEGATIVE (NEG); Urine Specific Gravity >=1.030 (1.005-1.030)
[2018-03-02 20:02] LABS: Urine Microscopic Reflex NO UMIC
[2018-03-02] MEDS: ATORVASTATIN 80 MG TAB PO SCH (21:24)
[2018-03-03] MEDS: HYDROCODONE/APAP 7.5/325 MG TAB PO PRN ×4 (03:57→22:08)
[2018-03-03] MEDS: METOPROLOL TAR 25 MG TAB PO SCH ×2 (06:00→17:18)
[2018-03-03 06:14] LABS: Absolute Lymphocytes (CBC) 3.3 K/uL (0.7-4.9); Absolute Monocytes 1.3 K/uL (0.1-1.3); Absolute Neutrophil 8.3 K/uL (1.8-8.0); Basophils % 0.5 % (0-1.3); Eosinophils % 0.7 % (0-4.4); Lymphocytes % 25.4 % (15.3-44.8); MPV 8.7 fL (7.6-11.3); Monocytes % 9.9 % (3.3-12.3); RBC Red Blood Cell Count 4.77 M/uL (4.33-5.43)
[2018-03-03 06:26] LABS: BUN Blood Urea Nitrogen 16 mg/dL (7-18); Bicarbonate 29 mmol/L (21-32); Glucose Level 240 mg/dL (74-106); Potassium 3.9 mmol/L (3.5-5.1); Sodium Level 138 mmol/L (136-145)
[2018-03-03] MEDS ORDERED: COLCHICINE 0.6 MG TAB PO PRN (07:03)
--- NOTE | 2018-03-03 07:52 | CON ---
Chief Complaint: Pain in the chest. History Of Present Illness: Mr. Andrews has had pain in his chest ever since his stent. He had an anterior wall UT in January. He came to the hospital more than 40 hours after the onset of UT. He had pressure in his chest, tightness typical of UT symptoms. He did not come with that. He came the nex t day with pleuritic chest pain. A stent was placed in his LAD. He has a very depressed ejection fr action and with anterior UT, and he had pericarditis. The chest pain he has gets worse if he lays fl at, better if he sits up, worse if he takes a breath. It has been basically constant since his UT so me 3 weeks ago or so. Since he has been in the hospital, his troponins are normal. A C-reactive pro tein is elevated. A sed rate has not been done, but I doubt it is elevated. I think the patient cou ld benefit from being on colchicine, perhaps a short course of steroids. He does not need a cardiac cath or a stress test. An echocardiogram might be useful, but we are dealing with pericardial pain, not an acute coronary syndrome. PATRICK/RAUL Voice ID: [id number] Report ID: [id number]
[2018-03-03] MEDS ORDERED: POTASSIUM 25 MEQ EFFERV TAB PO ONE (08:03)
--- NOTE | 2018-03-03 08:12 | RAD REPORT ---
EXAM DESCRIPTION: Ruth Ann Middleton And Lat (2 Views)03/03/2018 6:48 am CLINICAL HISTORY: Shortness of breath COMPARISON: March 02 FINDINGS: Small left pleural effusion with left lower lobe atelectasis is unchanged. Tiny right pleu ral effusion is present. The interstitial pulmonary edema appears resolved. The heart remains enlarged IMPRESSION: Mild interstitial pulmonary edema appears resolved No change in small left and tiny right pleural effusions
[2018-03-03] MEDS: ARFORMOTEROL TARTRATE 15 MCG/2 ML VIAL.NEB NEB SCH ×2 (08:16→20:36)
[2018-03-03] MEDS: ENOXAPARIN 40 MG/0.4 ML SQ SCH (08:43)
[2018-03-03] MEDS: ASPIRIN EC 81 MG TAB PO SCH (08:44)
[2018-03-03] MEDS: INSULIN -REGULAR HUMAN 50 UNIT/0.5 ML ML SQ SCH ×4 (08:45→20:18)
[2018-03-03] MEDS: FUROSEMIDE 20 MG/ 2ML VIAL IV SCH (08:45)
--- NOTE | 2018-03-03 10:15 | P.PN ---
Subjective Date of Service: 03/03/18 Primary Care Provider: Dr. Villagomez; Cardiology-Dr. Castillo Chief Complaint: chest pain and shortness of breath Subjective: Improving (Patient feels improved. Patient responding well to steroids and diuretic therapy.) Physical Examination - Vital Signs Temperature: 98.7 F Blood Pressure: 106/66 Pulse: 98 Respirations: 18 Pulse Ox (%): 95 - Physical Exam General: Alert, In no apparent distress, Oriented x3, Cooperative HEENT: Atraumatic Neck: Supple Respiratory: Clear to auscultation bilaterally Cardiovascular: Normal pulses, Regular rate/rhythm Gastrointestinal: Normal bowel sounds, Soft and benign, Non-distended, No tenderness, No masses, No rebound, No guarding Musculoskeletal: No erythema, No tenderness, No warmth Integumentary: No tenderness/swelling, No erythema, No warmth, No cyanosis Neurological: Normal speech, Normal strength at 5/5 x4 extr, Normal tone, Normal affect Lymphatics: No axilla or inguinal lymphadenopathy - Studies Laboratory Data (last 24 hrs) 03/02/18 10:45: PT 11.5, INR 0.97, APTT 29.1 03/02/18 10:45: WBC 12.8 H, Hgb 14.0, Hct 41.3, Plt Count 313 03/02/18 10:45: Sodium 138, Potassium 4.2, BUN 16, Creatinine 0.70, Glucose 245 H, Magnesium 1.6 L D, Total Bilirubin 0.8, AST 23, ALT 50, Alkaline Phosphatase 69 Medications List Reviewed: Yes Assessment & Plan - Problems (Diagnosis) (1) Chest pain Onset Date: 03/03/18 Current Visit: Yes Status: Acute Plan: Likely multifactorial. Recent 02/04/2018 heart cath for Acute anterior RI with placement of stent to LAD for complete occlusion. He was found to have CHF with EF of 35% and small pericardial effusion at that time. He was sent home with ASA , Effient, Metoprolol, Lipitor and Colchicine(for 10days). I suspect Chest pain and SOB maybe related to CHF, systolic [id number] exacerbation complicated with possible pericarditis and suspect COPD exacerbation with bilateral effusion. Patient has improved. Will change IV steroids to oral. Cardiology recommends no further intervention from a cardiac standpoint. Patient will need to be treated for his CHF. Will transition Lasix to oral. Will teach on 1500 cc per day fluid restriction. Patient likely has mild pericarditis. Cardiology recommends colchicine p.r.n.. Patient will likely need steroids for about 10 days as well. Will discuss with pulmonology about starting medication for COPD. Anticipate likely discharge later today or tomorrow. Will discuss with cardiology and pulmonology. (2) Shortness of breath Onset Date: 03/03/18 Current Visit: Yes Status: Acute Plan: This has improved with Lasix and steroids. Consider possible discharge later today if okay with pulmonology and Cardiology. Will transition Lasix and steroids to oral medication. (3) CHF (congestive heart failure) Onset Date: 03/03/18 Current Visit: Yes Status: Acute Plan: Continue as above. Obtain echocardiogram. Will discuss with cardiology. Will transition Lasix to oral. Will teach on 1500 cc per day fluid restriction. Qualifiers: Heart failure type: systolic Heart failure chronicity: acute on chronic Qualified Code(s): I50.23 - Acute on chronic systolic (congestive) heart failure (4) Pleural effusion Onset Date: 03/03/18 Current Visit: Yes Status: Acute Plan: Pleural effusions improved. Continue as above. (5) Pericardial effusion Onset Date: 03/03/18 Current Visit: Yes Status: Suspected Plan: Obtain echocardiogram. Will discuss with cardiology. Anticipate no intervention required (6) CAD (coronary artery disease) Onset Date: 03/03/18 Current Visit: Yes Status: Chronic Plan: Recent stent to LAD for total occlusion on 02/04/2018. Will monitor cardiac enzymes. Consult Cardiology. Continue with Effient, Decrease Metoprolol, Restart Lipitor. (7) HTN (hypertension) Onset Date: 03/03/18 Current Visit: Yes Status: Chronic Plan: Medications adjusted. Qualifiers: Hypertension type: essential hypertension Qualified Code(s): I10 - Essential (primary) hypertension (8) Hyperlipidemia Onset Date: 03/03/18 Current Visit: Yes Status: Chronic Plan: Continue with Lipitor. (9) COPD (chronic obstructive pulmonary disease) Onset Date: 03/03/18 Current Visit: Yes Status: Suspected Plan: Will transition steroid to oral. Will continue with COPD medication. Will discuss with pulmonology. Qualifiers: COPD type: COPD with acute exacerbation Qualified Code(s): J44.1 - Chronic obstructive pulmonary disease with (acute) exacerbation (10) Diabetes mellitus Onset Date: 03/03/18 Current Visit: Yes Status: Chronic Plan: Patient understands now that he has diabetes. At discharge patient will need to continue with Glucophage. Patient will need close follow up for better control. Qualifiers: Diabetes mellitus type: type 2 Diabetes mellitus residential insulin use: without superintendent container terminal use Diabetes mellitus complication status: with other specified complication Qualified Code(s): E11.69 - Type 2 diabetes mellitus with other specified complication (11) Hepatitis C Onset Date: 03/03/18 Current Visit: Yes Status: Chronic Plan: Will see GI as outpatient to address. Qualifiers: Viral hepatitis chronicity: chronic Hepatic coma status: without hepatic coma Qualified Code(s): B18.2 - Chronic viral hepatitis C (12) Pericarditis Onset Date: 03/03/18 Current Visit: Yes Status: Suspected Plan: Await echocardiogram. Will discuss with cardiology. Patient will require colchicine and steroid treatment. Qualifiers: Pericarditis type: idiopathic (13) Cholelithiasis Onset Date: 03/03/18 Current Visit: Yes Status: Chronic Plan: Recently evaluated by Surgery. This can be addressed as outpatient 6 months after January 2018 RI/stent. Qualifiers: Cholelithiasis location: gallbladder Cholecystitis presence: with cholecystitis Cholecystitis acuity: unspecified acuity Biliary obstruction: without biliary obstruction Qualified Code(s): K80.10 - Calculus of gallbladder with chronic cholecystitis without obstruction (14) Former tobacco use Onset Date: 03/03/18 Current Visit: Yes Status: Chronic Plan: May need nicotine patch. (15) Former consumption of alcohol Onset Date: 03/03/18 Current Visit: Yes Status: Chronic Plan: He no longer drinks alcohol. Discharge Plan: Home Plan to discharge in: 24 Hours Time Spent Managing Pts Care (In Minutes): 55
[2018-03-03] MEDS: PRASUGREL (EFFIENT) 10 MG TAB PO SCH (11:22)
--- NOTE | 2018-03-03 12:05 | P.CNS ---
Date of Consult: 03/03/18 Primary Care Provider: Dr. Villagomez; Cardiology-Dr. Castillo Chief Complaint: chest pain and shortness of breath History of Present Illness: Patient is 58 years of age admitted with some chest discomfort pressure in his chest associated with some shortness of breath for the past week he had an [place] 83 weeks ago the stent placement in the LAD he stops smoking since his [place] for prior history of obstructive airways disease does not usually see any doctors has known relying medical problems he feels a little better. Patient's BNP was elevated he does have bilateral pleural effusion left greater than the right on the CT scan Allergies No Known Allergies Allergy (Verified 03/02/18 15:35) Home Medications: Aspirin 81 mg PO DAILY #30 tab.chew 02/06/18 Atorvastatin Calcium [Lipitor] 80 mg PO BEDTIME #30 tab 02/06/18 Prasugrel Hydrochloride [Effient] 10 mg PO DAILY #30 tab 02/06/18 Metoprolol Tartrate [Lopressor*] 50 mg PO BID #60 tab 02/08/18 - Past Medical/Surgical History Diabetic: Yes -: DM Type 2 -: HTN -: Hyperlipidemia -: CAD, Stent to LAD(01/2018) -: Hepatitis C -: Former tobacco use -: Former alcohol use -: COPD -: Jaw surgery (broken jaw) -: Heel surgery Psychosocial/ Personal History: He is . He has 1 child. He does not work - Family History Mother Medical History: Heart disease Notes: suddenly from heart attack. Father Medical History: Liver disease Notes: liver cancer/ alcoholic - Social History Smoking Status: Current every day smoker Alcohol use: No CD- Drugs: No Caffeine use: Yes Place of Residence: Home Review of Systems 10-point ROS is otherwise unremarkable Physical Examination Temp Pulse Resp BP Pulse Ox 98.7 F 98 H 18 106/66 95 03/03/18 10:15 03/03/18 10:15 03/03/18 10:15 03/03/18 10:15 03/03/18 10:15 General: Alert, Oriented x3 HEENT: Atraumatic Neck: Supple Respiratory: Clear to auscultation bilaterally, Diminished Cardiovascular: No edema, Regular rate/rhythm Gastrointestinal: Normal bowel sounds, Soft and benign Musculoskeletal: No clubbing, No swelling - Problems (1) Shortness of breath Onset Date: 03/03/18 Current Visit: Yes Status: Acute Plan: Patient is 58 years of age admitted with some chest pressure shortness of breath former heavy smoker quit 3 weeks ago aureus and history of [place] BNP is elevated he probably has underlying heart failure possibly underlying chronic obstructive pulmonary disease echocardiogram pending I suggest adding some Lasix use inhalers small dose of prednisone white count is mildly elevated EKG shows oral [place] labs reviewed patient's oxygenation is satisfactory Possible discharge tomorrow on diuretics a bronchodilator either Symbicort or Advair low-dose prednisone 10 mg twice a day follow up with me in 2 weeks
--- NOTE | 2018-03-03 12:37 | ECHO ---
HEIGHT: 5 ft 4 in WEIGHT: 198 lb 6.4 oz DATE OF STUDY: 03/03/[address]: Mike Aguilar DO 2-DIMENSIONAL: YES M.MODE: YES DOPPLER: YES COLOR FLOW: YES TDS: NO PORTABLE: NO DEFINITY: NO BUBBLE STUDY: NO DIAGNOSIS: SHORTNESS OF BREATH/PERICARDIAL EFFUSION CARDIAC HISTORY: CATHERIZATION: YES SURGERY: NO PROSTHETIC VALVE: NO PACEMAKER: NO MEASUREMENTS (cm) DIASTOLIC (NORMALS) SYSTOLIC (NORMALS) IVSd 1.2 (0.6-1.2) LA Diam 3.8 (1.9-4.0) LVEF 29% LVIDd 5.9 (3.5-5.7) LVIDs 5.1 (2.0-3.5) %FS 14% LVPWd 1.3 (0.6-1.2) Ao Diam 2.8 (2.0-3.7) 2 DIMENSIONAL ASSESSMENT: RIGHT ATRIUM: NORAML LEFT ATRIUM: NORMAL RIGHT VENTRICLE: NORMAL LEFT VENTRICLE: NORMAL TRICUSPID VALVE: NORMAL MITRAL VALVE: NORMAL PULMONIC VALVE: NORMAL AORTIC VALVE: NORMAL PERICARDIAL EFFUSION: NONE/ EPICARDIAL FAT PAD NOTED AORTIC ROOT: NORMAL LEFT VENTRICULAR WALL MOTION: AKINESIS OF ANTERIOR, SEPTAL, APICAL SEGMENT. DOPPLER/COLOR FLOW: MILD MITRAL AND TRICUSPID REGURGITATION. NORMAL RIGHT VENTRICULAR SYSTOLIC PRESSURE. COMMENTS: DEPRESSED LEFT VENTRICULAR EJECTION FRACTION WITH WALL MOTION ABNORMALITY. MILD MITRAL AND TRICUSPID REGURGITATION. TECHNOLOGIST: RAO HERNANDEZ
[2018-03-03] MEDS: predniSONE 20 MG TAB PO SCH ×2 (12:59→20:18)
[2018-03-03] MEDS: FUROSEMIDE 20 MG TABLET PO SCH (16:51)
[2018-03-03] MEDS: ATORVASTATIN 80 MG TAB PO SCH (20:18)
[2018-03-03] MEDS ORDERED: predniSONE 20 MG TAB PO SCH (21:00)
[2018-03-04] MEDS: HYDROCODONE/APAP 7.5/325 MG TAB PO PRN (05:18)
[2018-03-04] MEDS: METOPROLOL TAR 25 MG TAB PO SCH (05:18)
[2018-03-04 05:56] LABS: Absolute Lymphocytes (CBC) 1.8 K/uL (0.7-4.9); Absolute Monocytes 0.5 K/uL (0.1-1.3); Absolute Neutrophil 6.8 K/uL (1.8-8.0); Basophils % 0.1 % (0-1.3); Lymphocytes % 20.2 % (15.3-44.8); MCH 28.9 pg (27.0-35.0); MCV 82.5 fL (80-100); MPV 8.9 fL (7.6-11.3); Monocytes % 5.1 % (3.3-12.3); RBC Red Blood Cell Count 4.73 M/uL (4.33-5.43)
[2018-03-04 06:06] LABS: BUN Blood Urea Nitrogen 17 mg/dL (7-18); Bicarbonate 32 mmol/L (21-32); Glucose Level 274 mg/dL (74-106); Magnesium 2.1 mg/dL (1.8-2.4); Potassium 4.1 mmol/L (3.5-5.1); Sodium Level 140 mmol/L (136-145)
[2018-03-04] MEDS: ARFORMOTEROL TARTRATE 15 MCG/2 ML VIAL.NEB NEB SCH (07:42)
[2018-03-04] MEDS: FUROSEMIDE 20 MG TABLET PO SCH (09:11)
[2018-03-04] MEDS: predniSONE 20 MG TAB PO SCH (09:11)
[2018-03-04] MEDS: ASPIRIN EC 81 MG TAB PO SCH (09:11)
[2018-03-04] MEDS: PRASUGREL (EFFIENT) 10 MG TAB PO SCH (09:12)
[2018-03-04] MEDS: ENOXAPARIN 40 MG/0.4 ML SQ SCH (09:12)
[2018-03-04] MEDS: INSULIN -REGULAR HUMAN 50 UNIT/0.5 ML ML SQ SCH ×2 (09:13→12:28)
[2018-03-04 10:22] VITALS: O2SAT 95
[2018-03-04 12:48] VITALS: BP 91/51; TEMP 98
--- NOTE | 2018-03-04 17:40 | P.DS ---
Admission Date: 03/02/18 Discharge Date: 03/04/18 Primary Care Provider: Dr. Villagomez; Cardiology-Dr. Castillo Disposition: ROUTINE DISCHARGE Discharge Condition: GOOD Reason for Admission: chest pain and shortness of breath Consultations: Cardiology Pulmonology - Problems (1) CHF (congestive heart failure) Onset Date: 03/03/18 Status: Acute Qualifiers: Heart failure type: systolic Heart failure chronicity: acute on chronic Qualified Code(s): I50.23 - Acute on chronic systolic (congestive) heart failure (2) Chest pain Onset Date: 03/03/18 Status: Acute Qualifiers: Chest pain type: chest pain on breathing Qualified Code(s): R07.1 - Chest pain on breathing; R07.81 - Pleurodynia (3) Pericarditis as complication of acute myocardial infarction Status: Acute (4) Pleural effusion Onset Date: 03/03/18 Status: Acute (5) CAD (coronary artery disease) Onset Date: 03/03/18 Status: Chronic Qualifiers: Coronary Disease-Associated Artery/Lesion type: [place] artery [place] vs. transplanted heart: [place] heart Associated angina: with stable angina Qualified Code(s): I25.118 - Atherosclerotic heart disease of [place] coronary artery with other forms of angina pectoris (6) Diabetes mellitus Onset Date: 03/03/18 Status: Chronic Qualifiers: Diabetes mellitus type: type 2 Diabetes mellitus corporate associate insulin use: without corporate associate use Diabetes mellitus complication status: with other specified complication Qualified Code(s): E11.69 - Type 2 diabetes mellitus with other specified complication (7) Former tobacco use Onset Date: 03/03/18 Status: Chronic (8) HTN (hypertension) Onset Date: 03/03/18 Status: Chronic Qualifiers: Hypertension type: essential hypertension Qualified Code(s): I10 - Essential (primary) hypertension (9) Hepatitis C Onset Date: 03/03/18 Status: Chronic Qualifiers: Viral hepatitis chronicity: chronic Hepatic coma status: without hepatic coma Qualified Code(s): B18.2 - Chronic viral hepatitis C (10) Hyperlipidemia Onset Date: 03/03/18 Status: Chronic (11) COPD (chronic obstructive pulmonary disease) Onset Date: 03/03/18 Status: Suspected Qualifiers: COPD type: COPD with acute exacerbation Qualified Code(s): J44.1 - Chronic obstructive pulmonary disease with (acute) exacerbation Brief History of Present Illness: 58 yo CM presented to the ER with chest pain and shortness of breath. He was recently hospitalized on 02/04/2018 for an acute anterior MO. On that day hew as immediately taken for heart catheterization. He was found to have normal RCA and circumflex, but he was found to have totally occluded LAD. He has a stent placed at that time. He was also found to have CHF with EF of 35% and a small pericardial effusion. He was noted in having pleural effusion. Other new findings was DM and hepatitis. It was thought that he may also had pericarditis. He was sent home with ASA, Effient, Metoprolol, Lipitor and Colchocine. Since the last 3 days he has noted increased shortness of breath and chest pain. Chest pain is mainly to the center of the chest and is diffuse. It radiates to both sides. He is not able to get comfortable. Pain is worse when lying down. No fever or chills noted. No nausea or vomiting noted. He came to the ER for evaluation. In the ER CXR showed pulmonary edema suspicious for CHF. CT chest showed left greater than right pleural effusion. Prominent pericardial effusion noted but unchanged since January. BNP elevated at 4257, Mag 1.6, Trop 0.02 and WBC 12.8. He was admitted for further treatment. When I saw him in the ER, he remained stable. BP around 110 sys. HR stable. He was not in respiratory distress. He admits history of alcohol and tobacco but quit last month. He has DM but not taking medication. He has CHF but not on diurectic therapy. He is to see GI soon to address his new diagnosis of Hepatitis C. He does not take any medication for possible COPD Hospital Course: Overall during the hospital stay patient remained stable Patient was initially admitted to the hospital for chest pain and shortness of breath. Patient's chest pain and shortness of breath was most likely secondary to CHF exacerbation causing bilateral pleural effusion and pericarditis. Patient was recently admitted to the hospital and was discharged 3 weeks ago status post MO and was found to have pericarditis at that time and was given medications for it. Patient finished a course of his Cortrosyn and then started having some chest pain along with shortness of breath. Patient when admitted here in the hospital this time was found to also have COPD exacerbation and a new diagnosis of COPD after all. Pulmonology was consulted who recommended the patient be started on Symbicort with 2 puffs b.i.d. along with low-dose steroids. Patient had marked improvement in his symptoms. Patient also had cardiology consulted here in the hospital who recommended patient get a repeat echocardiogram done which was consistent with the ejection fraction of 25% which was down from 35% last time. Patient does was started on Lasix and spironolactone here in the hospital. Patient was also started back on cultures done here in the hospital for his pericarditis. Cardiology was consulted who agreed with the above plan. Patient had marked improvement in his shortness of breath and his chest pain day 3 of hospital visit and thus was discharged home under stable condition. Patient was educated extensively on his disease process of congestive heart failure, COPD, hepatitis-C, and CAD. Patient was asked to follow up with his primary care provider for follow up care. Patient thus was discharged home under stable condition. The patient had new medications of Lasix 20 mg b.i.d.. Spironolactone 25 mg daily. Cultures sent to be taken twice daily. And Symbicort inhaler along with prednisone. Vital Signs/Physical Exam: Temp Pulse Resp BP Pulse Ox 98 F 96 H 18 91/51 L 96 03/04/18 12:00 03/04/18 12:00 03/04/18 12:00 03/04/18 12:00 03/04/18 12:00 General: Alert, In no apparent distress HEENT: Atraumatic, PERRLA, EOMI Neck: Supple, JVD not distended Respiratory: Clear to auscultation bilaterally, Normal air movement Cardiovascular: Regular rate/rhythm, Normal S1 S2 Gastrointestinal: Normal bowel sounds, No tenderness Musculoskeletal: No tenderness Integumentary: No rashes Neurological: Normal speech, Normal tone, Normal affect Lymphatics: No axilla or inguinal lymphadenopathy Laboratory Data at Discharge: WBC 9.1 K/uL (4.3-10.9) D 03/04/18 05:10 Hgb 13.7 g/dL (13.6-17.9) 03/04/18 05:10 Hct 39.0 % (39.6-49.0) L 03/04/18 05:10 Plt Count 289 K/uL (152-406) 03/04/18 05:10 PT 11.5 SECONDS (9.5-12.5) 03/02/18 10:45 INR 0.97 03/02/18 10:45 APTT 29.1 SECONDS (24.3-36.9) 03/02/18 10:45 Sodium 140 mmol/L (136-145) 03/04/18 05:10 Potassium 4.1 mmol/L (3.5-5.1) 03/04/18 05:10 BUN 17 mg/dL (7-18) 03/04/18 05:10 Creatinine 0.60 mg/dL (0.55-1.3) 03/04/18 05:10 Glucose 274 mg/dL (74-106) H 03/04/18 05:10 Magnesium 2.1 mg/dL (1.8-2.4) 03/04/18 05:10 Total Bilirubin 0.8 mg/dL (0.2-1.0) 03/02/18 10:45 AST 23 U/L (15-37) 03/02/18 10:45 ALT 50 U/L (12-78) 03/02/18 10:45 Alkaline Phosphatase 69 U/L (45-117) 03/02/18 10:45 Troponin I 0.03 ng/mL (0.0-0.045) 03/02/18 22:46 Home Medications: Aspirin 81 mg PO DAILY #30 tab.chew 02/06/18 Atorvastatin Calcium [Lipitor] 80 mg PO BEDTIME #30 tab 02/06/18 Prasugrel Hydrochloride [Effient*] 10 mg PO DAILY #30 tab 02/06/18 Metoprolol Tartrate [Lopressor*] 50 mg PO BID #60 tab 02/08/18 Colchicine 0.6 mg PO BID #28 capsule 03/04/18 Fluticasone/Salmeterol [Advair Hfa 115-21 Mcg Inhaler] 12 gm IH BID PRN #1 aer.w.adap 03/04/18 Furosemide [Lasix] 20 mg PO BID #60 tablet 03/04/18 predniSONE [Deltasone*] 10 mg PO DAILY #18 tab 03/04/18 New Medications: Colchicine 0.6 mg PO BID #28 capsule Fluticasone/Salmeterol [Advair Hfa 115-21 Mcg Inhaler] 12 gm IH BID PRN #1 aer.w.adap PRN Reason: Wheezing Furosemide [Lasix] 20 mg PO BID #60 tablet predniSONE [Deltasone*] 10 mg PO DAILY #18 tab Patient Discharge Instructions: Please f.u with PCP and service attendant cafeteria in 1 to 2 week post discharge. New medication. Lasix 20mg BID. Colchicine BID. Advair 2 puff BID. Prednisone Taper Dose Diet: Regular Activity: Ad terrell Followup: Ag Chapa MD [ACTIVE - CAN ADMIT] - 1 Week Erickson Castillo MD [ACTIVE - CAN ADMIT] - 1 Week
== END 2018-03-04 15:34 | disposition home or self-care (01) ==
LOC: ER 10:05 → ERHOLD 13:06 → 4TH 15:00
PROVIDERS: ADMIT Family Medicine; ATTEND Family Medicine
DX: I11.0 Hypertensive heart disease with heart failure (principal); I30.8 Other forms of acute pericarditis; J44.1 Chronic obstructive pulmonary disease with (acute) exacerbation; I50.23 Acute on chronic systolic (congestive) heart failure; R07.81 Pleurodynia; I25.118 Atherosclerotic heart disease of native coronary artery with other forms of angina pectoris; E11.69 Type 2 diabetes mellitus with other specified complication; Z87.891 Personal history of nicotine dependence; B18.2 Chronic viral hepatitis C; E78.5 Hyperlipidemia, unspecified; I08.1 Rheumatic disorders of both mitral and tricuspid valves; I25.2 Old myocardial infarction; Z79.02 Long term (current) use of antithrombotics/antiplatelets; Z79.82 Long term (current) use of aspirin; Z09 Encounter for follow-up examination after completed treatment for conditions other than malignant neoplasm; Z95.5 Presence of coronary angioplasty implant and graft
CPT/HCPCS: 36415 ×2; 71045; 71046; 71275; 80048 ×3; 80076; 81003; 82550 ×2; 82553 ×2; 82962 ×8; 83735 ×3; 83880; 84145; 84484 ×2; 85025 ×3; 85610; 85652; 85730; 86140; 87040 ×4; 93005; 93306; 94640; 96361; 96365; 96375; 99285; G0378 ×2; J1650 ×3; J1940 ×2; J3010; J3475; J7605 ×4; Q9967; J7512

== ENCOUNTER 2020-01-27 13:54 | Inpatient (IN) | payer OTHER ==
--- NOTE | 2020-01-27 16:35 | RAD REPORT ---
EXAM DESCRIPTION: CT - Head Brain Wo Cont - 01/27/2020 4:26 pm CLINICAL HISTORY: headache;Visual disturbances COMPARISON: No comparisons TECHNIQUE: Axial 5 mm thick images of the head were obtained without IV contrast. All CT scans are performed using dose optimization technique as appropriate and may include automated exposure control or mA/KV adjustment according to patient size. FINDINGS: No intracranial hemorrhage is present. Patient does have a large 7 x 2.5 centimeter area o f diminished attenuation involving medial left occipital lobe. This extends partially to involve the posteromedial aspect of the left temporal lobe. No other areas of infarction identified. No significa nt atrophy or chronic ischemic change. No abnormal extra-axial fluid collections. Ventricles are norm al. Mastoid air cells and visualized portions of the paranasal sinuses are clear. No acute bony findings. IMPRESSION: Large nonhemorrhagic acute infarction involving medial left occipital lobe an a small po rtion of the posteromedial left temporal lobe. No significant mass effect. No midline shift
[2020-01-27 16:44] LABS: Basophils % 0.4 % (0-1.3); Hematocrit 43.5 % (39.6-49.0); Lymphocytes % 24.8 % (15.3-44.8); MPV 9.4 fL (7.6-11.3)
[2020-01-27 16:45] LABS: Protime INR 0.95
[2020-01-27] MEDS ORDERED: FOLIC ACID 5 MG/ML VIAL ONE (16:59)
[2020-01-27] MEDS ORDERED: ACETAMINOPHEN 325 MG TABLET ONE (16:59)
[2020-01-27] MEDS ORDERED: ASPIRIN 81 MG CHEWABLE TABLET ONE (16:59)
[2020-01-27] MEDS ORDERED: NA CHLORIDE 0.9% 50 ML IV ONE (17:00)
--- NOTE | 2020-01-27 17:06 | ER ---
Nurse's Notes [facility] Name: Addison Andrews Age: 60 yrs Sex: Male : 1960 Arrival Date: 01/27/2020 Time: 13:55 Bed 18 Private MD: Diagnosis: Cerebral infarction Presentation: 01/26 14:05 Chief complaint: Spouse and/or significant other states: headache, blurred vision, ss unsteady and confusion that began yesterday. Coronavirus screen: Proceed with normal triage. Patient denies a cough. Patient denies shortness of breath or difficulty breathing. Patient denies measured and/or subjective temperature greater than 100.4F prior to today's visit. Patient denies travel on a cruise ship or to a country the [facility] currently lists as an affected area. Patient denies contact with known and/or suspected case of COVID-19. Ebola Screen: Patient denies exposure to infectious person. Patient denies travel to an Ebola-affected area in the 21 days before illness onset. Initial Sepsis Screen: Does the patient meet any 2 criteria? No. Patient's initial sepsis screen is negative. Does the patient have a suspected source of infection? No. Patient's initial sepsis screen is negative. Risk Assessment: Do you want to hurt yourself or someone else? Patient reports no desire to harm self or others. Onset of symptoms was January 26, 2020. 14:05 Method Of Arrival: Wheelchair ss 14:05 Acuity: DUKE 3 ss Triage Assessment: 17:32 Headache History: The patient has had previous headaches and this one is different than vc previous episodes, and this one is more severe than previous episodes. General: Appears in no apparent distress. Behavior is calm, cooperative. Pain: Complains of pain in head Pain does not radiate. Pain currently is 4 out of 10 on a pain scale. Pain began 2-3 days ago. Also complains of photophobia, sleeplessness. Neuro: Level of Consciousness is awake, alert, obeys commands, confused, Oriented to person, place, time. Historical: - Allergies: 14:08 NKA; ss - PMHx: 14:08 Diabetes - NIDDM; Hypertension; High Cholesterol; Myocardial infarction; ss - PSHx: 14:08 Heart stents; ss - Immunization history:: Adult Immunizations up to date. - Social history:: Smoking status: Patient denies any tobacco usage or history of. Patient uses alcohol, only on a social basis. Screenin:32 Abuse screen: Denies threats or abuse. Nutritional screening: No deficits noted. vc Tuberculosis screening: No symptoms or risk factors identified. Fall Risk None identified. Assessment: 15:45 General: Appears in no apparent distress. comfortable, obese, Behavior is calm, vc cooperative, appropriate for age. Pain: Complains of pain in forehead. Neuro: Level of Consciousness is awake, alert, obeys commands, confused, Oriented to person, place, time, situation, Appropriate for age. Cardiovascular: Capillary refill < 3 seconds Patient's skin is warm and dry. Pulses are palpable in right radial artery and left radial artery Rhythm is sinus rhythm. Respiratory: Airway is patent Respiratory effort is even, unlabored, Respiratory pattern is regular, symmetrical. GI: No signs and/or symptoms were reported involving the gastrointestinal system. : No signs and/or symptoms were reported regarding the genitourinary system. EENT: Reports blurred vision photophobia. Derm: Skin is intact, is healthy with good turgor, Skin temperature is warm. 16:45 Reassessment: Patient appears in no apparent distress at this time. Patient and/or vc family updated on plan of care and expected duration. Pain level reassessed. Patient is alert, oriented x 3, equal unlabored respirations, skin warm/dry/pink. 17:45 Reassessment: PATIENT AT MRI VIA WHEELCHAIR. vc 19:00 Reassessment: Patient appears in no apparent distress at this time. Patient and/or vc family updated on plan of care and expected duration. Pain level reassessed. Patient is alert, oriented x 3, equal unlabored respirations, skin warm/dry/pink. BACK FROM MRI. Vital Signs: 14:05 BP 109 / 72; Pulse 70; Resp 16; Temp 98.3(TE); Pulse Ox 96% ; Weight 104.33 kg; Height ss 5 ft. 4 in. (162.56 cm); 17:00 BP 116 / 74; Pulse 67; Resp 17; Pulse Ox 96% on R/A; vc 19:00 BP 118 / 68; Pulse 66; Resp 18; Pulse Ox 96% on R/A; vc 14:05 Body Mass Index 39.48 (104.33 kg, 162.56 cm) ss Visual Acuity: 16:46 Left Eye Visual acuity 20/25, ; Right Eye Visual acuity 20/30, ; Both Eyes Visual vc acuity 20/25; Without Lenses; NIH Stroke Scale Scores: 16:50 NIHSS Score: 2 cp ED Course: 13:55 Patient arrived in ED. ag5 14:07 Triage completed. ss 14:08 Arm band placed on right wrist. ss 15:38 Patti Salgado, RN is Primary Nurse. vc 15:40 Patient has correct armband on for positive identification. Placed in gown. Bed in low vc position. Call light in reach. Side rails up X2. Adult w/ patient. 15:40 cardiac monitor on. Pulse ox on. NIBP on. vc 15:45 Inserted saline lock: 20 gauge in right antecubital area, using aseptic technique. vc Blood collected. 15:55 Josh Pan PA is PHCP. cp 15:55 Michael Rose MD is Attending Physician. cp 16:30 CT Head Brain wo Cont In Process Unspecified. EDMS 17:02 XRAY Chest (1 view) In Process Unspecified. EDMS 17:05 Mike Aguilar DO is Hospitalizing Provider. cp 20:15 No provider procedures requiring assistance completed. Patient admitted, IV remains in vc place. Administered Medications: 16:57 Drug: foLIC Acid 1 mg Route: IVPB; Site: right antecubital; vc 17:39 Follow up: IV Status: Completed infusion; IV Intake: 50ml vc 16:57 Drug: Aspirin 81 mg Route: PO; vc 17:38 Follow up: Response: No adverse reaction vc 16:57 Drug: Tylenol 650 mg Route: PO; vc 17:38 Follow up: Response: No adverse reaction vc 17:31 Drug: NS 0.9% 1000 ml Route: IV; Rate: 1 bolus; Site: right antecubital; vc Intake: 17:39 IV: 50ml; Total: 50ml. vc Outcome: 17:05 Decision to Hospitalize by Provider. cp 20:15 Admitted to Med/surg accompanied by tech, via wheelchair, with chart. vc 20:15 Condition: good 20:15 Instructed on the need for admit. 20:17 Patient left the ED. ea NIH Stroke Scale - NIH Stroke Score Date: 01/27/2020 Time: 16:50 Total Score = 2 1a. Level of Consciousness (LOC) - 0(Alert) 1b. Level of Consciousness (LOC) (Year \T\ Age) - 0(Both) 1c. LOC Commands (Open \T\ Closes Eyes/Value Stream Coach) - 0(Both) 2. Best Gaze (Lateral Gaze Paresis) - 0(Normal) 3. Visual Field Loss - 1(Partial hemianopia) 4. Facial Palsy - 0(Normal) 5a. Left Arm: Motor (10-second hold) - 0(No drift) 5b. Right Arm: Motor (10-second hold) - 0(No drift) 6a. Left Leg: Motor (5-second hold - always test supine) - 0(No drift) 6b. Right Leg: Motor (5-second hold - always test supine) - 0(No drift) 7. Limb Ataxia (finger/nose \T\ heel/mcgrath - test with eyes open) - 0(Absent) 8. Sensory Loss (pinprick arms/legs/face) - 0(Normal) 9. Best Language: Aphasia (description/naming/reading) - 1(Mild to moderate aphasia) 10. Dysarthria (speech clarity - read or repeat words) - 0(Normal) 11. Extinction and Inattention (visual/tactile/auditory/spatial/personal) - 0(No abnormality) Initials: cp Signatures: Dispatcher [employer] Amber Curry RN RN ss Page, Corey, PA PA cp Antunez, Elena, RN RN ea Gaskin, Ajare ag5 Patti Salgado RN RN vc
--- NOTE | 2020-01-27 17:06 | EDPHYS ---
Physician Documentation [facility] Name: Addison Andrews Age: 60 yrs Sex: Male : 1960 Arrival Date: 01/27/2020 Time: 13:55 Bed 18 Private MD: ED Physician Michael Rose HPI: 01/26 16:10 This 60 yrs old Male presents to ER via Wheelchair with complaints of Vision cp Problem, Headache, Confusion. 16:10 The patient's problem is reported as altered mental status, confused, visual cp difficulty, decreased vision in the right eye, decreased visual field, headache. 16:10 Onset: The symptoms/episode began/occurred yesterday, approximately 1500. Duration: The cp episode is continuous. Associated signs and symptoms: Pertinent positives: confusion, headache, Pertinent negatives: abdominal pain, agitation, chest pain, combativeness, numbness, palpitations, tingling, weakness. Patient's baseline: Neuro: alert and fully oriented, Motor: no deficits, Ambulation: walks without assistance, Speech: normal, The patient has a previous history of MN. Historical: - Allergies: 14:08 NKA; ss - PMHx: 14:08 Diabetes - NIDDM; Hypertension; High Cholesterol; Myocardial infarction; ss - PSHx: 14:08 Heart stents; ss - Immunization history:: Adult Immunizations up to date. - Social history:: Smoking status: Patient denies any tobacco usage or history of. Patient uses alcohol, only on a social basis. ROS: 16:15 Constitutional: Negative for body aches, chills, fever, poor PO intake. cp 16:15 Eyes: Positive for vision loss, visual disturbance, Negative for discharge, pain, cp redness. 16:15 ENT: Negative for ear pain, sore throat, difficulty swallowing, difficulty handling secretions. 16:15 Cardiovascular: Negative for chest pain, edema, palpitations. 16:15 Respiratory: Negative for cough, shortness of breath, wheezing. 16:15 Abdomen/GI: Negative for abdominal pain, nausea, vomiting, and diarrhea. 16:15 Back: Negative for pain at rest, pain with movement. 16:15 Neuro: Positive for headache, confusion, Negative for altered mental status, dizziness, gait disturbance, numbness, speech changes, syncope, tingling, weakness. 16:15 All other systems are negative. Exam: 16:20 Constitutional: The patient appears in no acute distress, alert, awake, cp non-diaphoretic, non-toxic, well developed, well nourished. 16:20 Head/Face: Normocephalic, atraumatic. cp 16:20 Eyes: Periorbital structures: appear normal, Pupils: equal, round, and reactive to light and accomodation, Extraocular movements: intact throughout, Conjunctiva: normal, no exudate, no injection, Sclera: no appreciated abnormality, Lids and lashes: appear normal, bilaterally, Visual kemp: loss noted approximately 9 to 10 o'clock position of right eye only. Examination of the other eye reveals no obvious gross abnormality. 16:20 ENT: External ear(s): are unremarkable, Nose: is normal, Mouth: is normal, Posterior pharynx: is normal, airway is patent, no erythema, no exudate. 16:20 Neck: ROM/movement: is normal, is supple, without pain, no range of motions limitations, no nuchal rigidity. 16:20 Chest/axilla: Inspection: normal, Palpation: is normal, no crepitus, no tenderness. 16:20 Cardiovascular: Rate: normal, Rhythm: regular, Edema: is not appreciated, JVD: is not appreciated. 16:20 Respiratory: the patient does not display signs of respiratory distress, Respirations: normal, no use of accessory muscles, no retractions, labored breathing, is not present, Breath sounds: are clear throughout, no decreased breath sounds, no stridor, no wheezing. 16:20 Abdomen/GI: Inspection: abdomen appears normal, Palpation: abdomen is soft and non-tender, in all quadrants. 16:20 Back: pain, is absent, ROM is normal. 16:20 Skin: no rash present. 16:20 Neuro: Orientation: to person, place \T\ time. Mentation: slow to respond, confused, Cerebellar function: Romberg testing is negative, normal finger to nose testing, heel to mcgrath testing is normal, Motor: moves all fours, strength is normal, Sensation: is normal. 16:35 ECG was reviewed by the Attending Physician. cp 16:50 Radiologist reports: acute infarction left medial occipital lobe cp Vital Signs: 14:05 BP 109 / 72; Pulse 70; Resp 16; Temp 98.3(TE); Pulse Ox 96% ; Weight 104.33 kg; Height ss 5 ft. 4 in. (162.56 cm); 17:00 BP 116 / 74; Pulse 67; Resp 17; Pulse Ox 96% on R/A; vc 19:00 BP 118 / 68; Pulse 66; Resp 18; Pulse Ox 96% on R/A; vc 14:05 Body Mass Index 39.48 (104.33 kg, 162.56 cm) NIH Stroke Scale Scores: 16:50 NIHSS Score: 2 cp Visual Acuity: 16:46 Left Eye Visual acuity 20/25, ; Right Eye Visual acuity 20/30, ; Both Eyes Visual vc acuity 20/25; Without Lenses; MDM: 16:05 Patient medically screened. cp 16:20 Differential diagnosis: CVA, TIA, Dementia, metabolic disorder, drug effects. cp 16:45 ED course: Patient is not a candidate for tpa as onset of symptoms started more than 24 cp hrs ago. 17:00 Data reviewed: vital signs, nurses notes, lab test result(s), EKG, radiologic studies, cp CT scan, I have discussed the patient's presentation/case with the attending Emergency Department Physician;. 17:00 Test interpretation: by ED physician or midlevel provider: ECG. cp 17:01 Physician consultation: Otf Shetty MD was called at 17:01, was contacted at 17:01, cp regarding consult, patient's condition. 17:04 Physician consultation: Darrion BRANCH was called at 17:05, was contacted at 17:05, regarding admission, to the telemetry unit. patient's condition. 01/26 16:06 Order name: Basic Metabolic Panel; Complete Time: 17:21 cp 01/26 16:06 Order name: CBC with Diff; Complete Time: 16:58 cp 08 17:22 Interpretation: Reviewed. 01/26 16:06 Order name: LFT's; Complete Time: 17:21 cp 01/26 16:06 Order name: Magnesium; Complete Time: 17:21 cp 01/26 16:06 Order name: NT PRO-BNP; Complete Time: 17:21 cp 01/26 16:06 Order name: PT-INR; Complete Time: 16:58 cp 01/26 16:06 Order name: CT Head Brain wo Cont; Complete Time: 16:41 cp 01/26 16:06 Order name: Troponin (emerg Dept Use Only); Complete Time: 17:21 01/26 17:21 Interpretation: TROPED < 0.02; Reviewed. 01/26 16:06 Order name: XRAY Chest (1 view) 01/26 17:21 Order name: MRI Stroke Protocol 01/26 19:09 Order name: MRI EDMS 01/26 19:16 Order name: MRI EDMS 01/26 19:17 Order name: MRI EDMS 01/26 16:06 Order name: EKG; Complete Time: 16:07 01/26 16:06 Order name: Cardiac monitoring; Complete Time: 16:37 01/26 16:06 Order name: EKG - Nurse/Tech; Complete Time: 16:37 01/26 16:06 Order name: IV Saline Lock; Complete Time: 16:37 01/26 16:06 Order name: Labs collected and sent; Complete Time: 16:37 01/26 16:06 Order name: O2 Per Protocol; Complete Time: 16:37 01/26 16:06 Order name: O2 Sat Monitoring; Complete Time: 16:37 01/26 16:06 Order name: Visual Acuity; Complete Time: 16:48 cp EC:35 Rate is 63 beats/min. Rhythm is regular. AK interval is normal. QRS interval is normal. cp QT interval is normal. T waves are Inverted in lead aVL. Interpreted by me. Reviewed by me. Administered Medications: 16:57 Drug: foLIC Acid 1 mg Route: IVPB; Site: right antecubital; vc 17:39 Follow up: IV Status: Completed infusion; IV Intake: 50ml vc 16:57 Drug: Aspirin 81 mg Route: PO; vc 17:38 Follow up: Response: No adverse reaction vc 16:57 Drug: Tylenol 650 mg Route: PO; vc 17:38 Follow up: Response: No adverse reaction vc 17:31 Drug: NS 0.9% 1000 ml Route: IV; Rate: 1 bolus; Site: right antecubital; vc Disposition: 17:30 Chart complete. 01/27 07:08 Co-signature as Attending Physician, Michael Rose MD I agree with the assessment and kdr plan of care. Disposition: 01/27/20 17:05 Hospitalization ordered by Mike Aguilar for Inpatient Admission. Preliminary diagnosis is Cerebral infarction. - Bed requested for Telemetry/MedSurg (Inpatient). - Status is Inpatient Admission. ea - Condition is Stable. - Problem is new. - Symptoms are unchanged. NIH Stroke Scale - NIH Stroke Score Date: 01/27/2020 Time: 16:50 Total Score = 2 1a. Level of Consciousness (LOC) - 0(Alert) 1b. Level of Consciousness (LOC) (Year \T\ Age) - 0(Both) 1c. LOC Commands (Open \T\ Closes Eyes/Milk Condenser) - 0(Both) 2. Best Gaze (Lateral Gaze Paresis) - 0(Normal) 3. Visual Field Loss - 1(Partial hemianopia) 4. Facial Palsy - 0(Normal) 5a. Left Arm: Motor (10-second hold) - 0(No drift) 5b. Right Arm: Motor (10-second hold) - 0(No drift) 6a. Left Leg: Motor (5-second hold - always test supine) - 0(No drift) 6b. Right Leg: Motor (5-second hold - always test supine) - 0(No drift) 7. Limb Ataxia (finger/nose \T\ heel/mcgrath - test with eyes open) - 0(Absent) 8. Sensory Loss (pinprick arms/legs/face) - 0(Normal) 9. Best Language: Aphasia (description/naming/reading) - 1(Mild to moderate aphasia) 10. Dysarthria (speech clarity - read or repeat words) - 0(Normal) 11. Extinction and Inattention (visual/tactile/auditory/spatial/personal) - 0(No abnormality) Initials: cp Signatures: Dispatcher [employer] Rose Thakur RN RN kl Rittger, Kevin, MD MD kdr Smirch, Shelby, RN RN ss Page, Corey, PA PA cp Vanessa Ch RN RN ea Calcote, Vanessa, RN RN vc Corrections: (The following items were deleted from the chart) 01/26 17:57 17:05 Hospitalization Ordered by Mike Aguilar DO for Inpatient Admission. bernardo Preliminary diagnosis is Cerebral infarction. Bed requested for Telemetry/MedSurg (Inpatient). Status is Inpatient Admission. Condition is Stable. Problem is new. Symptoms are unchanged. cp 20:17 17:57 01/27/2020 17:05 Hospitalization Ordered by Mike Aguilar DO for ea Inpatient Admission. Preliminary diagnosis is Cerebral infarction. Bed requested for Telemetry/MedSurg (Inpatient). Status is Inpatient Admission. Condition is Stable. Problem is new. Symptoms are unchanged. kl
[2020-01-27 17:10] LABS: ALT/SGPT 45 U/L (12-78); AST/SGOT 34 U/L (15-37); Albumin 3.2 g/dL (3.4-5.0); Alkaline Phosphatase 65 U/L (45-117); BUN Blood Urea Nitrogen 15 mg/dL (7-18); Bicarbonate 28 mmol/L (21-32); Bilirubin Direct 0.2 mg/dL (0-0.2); Bilirubin Total 0.5 mg/dL (0.2-1.0); Glucose Level 232 mg/dL (74-106); NT PRO-BNP 1473 pg/mL (<125); Potassium 4.1 mmol/L (3.5-5.1); Protein, Total 7.1 g/dL (6.4-8.2); Sodium Level 142 mmol/L (136-145); Troponin (Emerg Dept Use Only) < 0.02 ng/mL (0.0-0.045)
--- NOTE | 2020-01-27 17:30 | RAD REPORT ---
EXAM DESCRIPTION: RAD - Chest Single View - 01/27/2020 5:01 pm CLINICAL HISTORY: dizziness, blurred vision, stroke chest film COMPARISON: February 2018 Two view chest TECHNIQUE: AP portable chest image was obtained 01/27/2020 5:01 pm . FINDINGS: Lung volumes are low. Body habitus and low lung volumes accentuate heart, vasculature and lung markings. Mild failure or volume overload could be masked. Heart and vasculature are normal. No measurable pleural effusion and no pneumothorax. No acute bony abnormality seen. No acute aortic find ings suspected. IMPRESSION: Limited portable study showing no focal mass or consolidation. Mild edema or infiltrate could be masked in this setting.
[2020-01-27] MEDS ORDERED: NA CHLORIDE 0.9% 1,000 ML ONE (17:34)
--- NOTE | 2020-01-27 17:48 | P.HP ---
Certification for Inpatient Patient admitted to: Observation With expected LOS: <2 Midnights Patient will require the following post-hospital care: None Practitioner: I am a practitioner with admitting privileges, knowledge of patient current condition, hospital course, and medical plan of care. Services: Services provided to patient in accordance with Admission requirements found in Title 42 Section 412.3 of the Code of Federal Regulations <MelissaDarrion good - Last Filed: 01/27/20 17:42> Patient History Date of Service: 01/27/20 Primary Care Provider: Dr. de la cruz Reason for admission: Acute CVA History of Present Illness: 60-year-old male with medical history of diabetes mellitus type 2, hypertension, hyperlipidemia, myocardial infarction present to the emergency department with a recent history of headache, visual disturbances, expressive aphasia. Patient and at bedside states that his symptoms began at approximately 3:00 p.m. on 01/26/2020. Patient reports that he has intermittent visual disturbances that effect his visual kemp but can be overcome by turning his head. Patient also has been noted to have some difficulty coming up with his words. Patient was evaluated in the emergency department and found to have a very large 7 x 2.5 cm nonhemorrhagic CVA in the medial left occipital lobe extending to left temporal lobe. ED provider contacted neurology who will consult on the case. Patient be admitted for further evaluation management. When I saw the patient in the emergency department he was in no distress, patient's disciplinary hearing officer were equal and strong, patient able to move all extremities. Patient does report that he has some difficulty forming his words but is able to speak rather fluently. - Past Medical/Surgical History Diabetic: Yes -: Diabetes mellitus type 2 -: Hypertension -: Hyperlipidemia -: CAD, Stent to LAD(01/2018) -: History of Hepatitis C -: Former tobacco use -: Former alcohol use -: COPD -: Jaw surgery (broken jaw) -: Heel surgery -: Heart stents Psychosocial/ Personal History: He is . He has 1 child. He does not work, lives at home with his . - Family History Mother -: Heart disease Notes: suddenly from heart attack. Father -: Liver disease Notes: liver cancer/ alcoholic - Social History Smoking Status: Former smoker Alcohol use: No CD- Drugs: No Caffeine use: Yes Place of Residence: Home <Darrion London - Last Filed: 01/27/20 17:42> Date of Service: 01/27/20 <Mike Aguilar - Last Filed: 01/27/20 18:04> Allergies No Known Allergies Allergy (Verified 03/02/18 15:35) Home Medications: Aspirin 81 mg PO DAILY #30 tab.chew 02/06/18 Atorvastatin Calcium [Lipitor] 80 mg PO BEDTIME #30 tab 02/06/18 Prasugrel Hydrochloride [Effient*] 10 mg PO DAILY #30 tab 02/06/18 Metoprolol Tartrate [Lopressor*] 50 mg PO BID #60 tab 02/08/18 Budesonide/Formoterol Fumarate [Symbicort 80-4.5 Mcg Inhaler] 2 puff IH BID #1 hfa.aer.ad 03/04/18 Colchicine 0.6 mg PO BID #28 capsule 03/04/18 Furosemide [Lasix] 20 mg PO BID #60 tablet 03/04/18 predniSONE [Deltasone*] 10 mg PO DAILY #18 tab 03/04/18 Review of Systems General: Unremarkable Eyes: Unremarkable ENT: Unremarkable Respiratory: Unremarkable Cardiovascular: Unremarkable Gastrointestinal: Unremarkable Genitourinary: Unremarkable Musculoskeletal: Unremarkable Neurological: Change in Speech, Other (Visual disturbances) <Darrion London - Last Filed: 01/27/20 17:42> Physical Examination - Physical Exam General: Alert, In no apparent distress, Oriented x3 HEENT: Atraumatic, Normocephalic Neck: Supple Respiratory: Clear to auscultation bilaterally, Normal air movement Cardiovascular: Normal pulses, Regular rate/rhythm, Normal S1 S2 Capillary refill: <2 Seconds Gastrointestinal: Normal bowel sounds, Soft and benign, Non-distended, No tenderness Musculoskeletal: No contractures, No erythema, No tenderness Integumentary: No tenderness/swelling, No erythema Neurological: Normal gait, Normal strength at 5/5 x4 extr, Normal tone, Sensation intact, Other (Mild expressive aphasia, mild visual field loss) - Studies Laboratory Data (last 24 hrs) 01/27/20 16:18: PT 11.2, INR 0.95 01/27/20 16:18: WBC 8.0, Hgb 14.4, Hct 43.5, Plt Count 232 01/27/20 16:18: Sodium 142, Potassium 4.1, BUN 15, Creatinine 0.78, Glucose 232 H, Magnesium 2.0, Total Bilirubin 0.5, AST 34, ALT 45, Alkaline Phosphatase 65 <Darrion London - Last Filed: 01/27/20 17:42> - Studies Laboratory Data (last 24 hrs) 01/27/20 16:18: PT 11.2, INR 0.95 01/27/20 16:18: WBC 8.0, Hgb 14.4, Hct 43.5, Plt Count 232 01/27/20 16:18: Sodium 142, Potassium 4.1, BUN 15, Creatinine 0.78, Glucose 232 H, Magnesium 2.0, Total Bilirubin 0.5, AST 34, ALT 45, Alkaline Phosphatase 65 <Mike Aguilar - Last Filed: 01/27/20 18:04> Assessment and Plan - Plan Assessment 7 cm x 2.5 cm nonhemorrhagic CVA medial left occipital lobe extending to the left temporal lobe Edv-ukaqkmh-ieomuyvsw diabetes mellitus with hyperglycemia Hypertension Hyperlipidemia History of myocardial infarction COPD Plan 7 cm x 2.5 cm nonhemorrhagic CVA medial left occipital lobe extending to the left temporal lobe: MRI stroke protocol has been ordered, neurology has been consulted. Will also obtain echocardiogram and ultrasound of the carotids. Will continue with daily aspirin and Plavix, folic acid. Will continue patient' s home medications. will consult physical and speech therapy. DVT prophylaxis with Lovenox 40 mg subcutaneous once daily. Anticipate improvement in the next 24-48 hr at which time the patient be discharged. Cng-bmchotr-bhtlkqkeu diabetes mellitus with hyperglycemia: Will continue the a.c. HS Accu-Cheks and sliding scale insulin therapy. Will obtain A1c with morning labs. Hypertension: Have continued patient's metoprolol. Will adjust as necessary. Hyperlipidemia: Have continue patient's atorvastatin, will adjust as necessary. History of myocardial infarction: Patient with history of myocardial infarction with stent placement. Patient reports feeling his daily aspirin for this. COPD: Will provide patient with albuterol inhaler for as needed use during this hospitalization. Patient does not report that he takes any inhalers on outpatient basis currently. Discharge Plan: Home Plan to discharge in: 24 Hours - Advance Directives Does patient have a Living Will: No Does patient have a Durable POA for Healthcare: No - Code Status/Comfort Care Code Status Assessed: Yes (Patient is full code) Time Spent Managing Pts Care (In Minutes): 55 <Attema,Darrion - Last Filed: 01/27/20 17:42> - Plan Case discussed at length with nurse practitioner. Agree with evaluation, assessment and plan of care. Patient will continue with aspirin, Plavix, high- dose statin, and folic acid. Continue DVT prophylaxis. MRI, echo and carotid Doppler to be obtained. Will discuss further with Neurology. Continue blood pressure medication. Will provide sliding scale. Will reassess. <Mike Aguilar - Last Filed: 01/27/20 18:04>
--- NOTE | 2020-01-27 19:07 | RAD REPORT ---
EXAM DESCRIPTION: MRI - Brain W/Wo Cont - 01/27/2020 6:50 pm CLINICAL HISTORY: Confused; Headache COMPARISON: MRA Head Wo Cont dated 01/27/2020; MRA Neck W/Wo Cont dated 01/27/2020 TECHNIQUE: Sagittal and axial T1-weighted images were obtained. Axial PD/heavily T2-weighted and T2- FLAIR images were obtained along with axial DWI/ADC mapping sequences. Coronal heavily T2 weighted s equence obtained. Axial and coronal post-contrast T1-weighted images were also obtained. A 20 ml Mul tihance contrast following utilized. FINDINGS: Diffusion-weighted imaging shows a large area of abnormal signal involving the medial port ion of the left occipital lobe extending anteriorly into the posteromedial left temporal lobe. There is corresponding diminished signal on ADC mapping. There is corresponding hyperintense T2/IR signal. Diminished signal in cortical edema changes are present on the T1 sequencing. A small punctate diffus ion signal abnormality is present in the posterolateral left thalamus. This also has corresponding di minished signal on ADC mapping and increased T2 signal. No abnormalities of the right cerebral hemisp here. Brainstem, cerebellum and basal ganglia are spared. There is some localized edema from this large area of infarction. However, there is no significant m ass effect. No midline shift. No intracranial hemorrhage changes are present. Post-contrast view show no abnormal enhancement in the infarctions zone. No abnormal dural thickening or enhancement. Ventri cles are unremarkable. Mastoid air cells and paranasal sinuses are clear. IMPRESSION: Enlarged nonhemorrhagic infarction is present in the medial occipital lobe and posterome dial temporal lobe on the left. This is the vascular distribution of the left posterior cerebral satish ry. Questionable punctate focus along the posterolateral left thalamus. This may be from small perforatin g branch from the P1 segment of the left posterior cerebral artery or a posterior communicating arter y mother tester. There is localized edema at the infarction zone but no significant mass-effect, midline shift or prince gent finding.
--- NOTE | 2020-01-27 19:15 | RAD REPORT ---
EXAM DESCRIPTION: MRI - MRA Head Wo Cont - 01/27/2020 6:50 pm CLINICAL HISTORY: Acute CVA, blurred vision, homonymous hemianopia COMPARISON: MRI brain same date, CT head same date TECHNIQUE: Axial and coronal 3D [id number] image acquisition was performed. 3D rotational images were generated with source and reconstruction images reviewed. Horizontal and vertical axis rotation al views generated using MIP protocol. FINDINGS: Major venous sinuses are patent. Distal vertebral arteries are unremarkable. Narrowing of the distal left vertebral artery is seen as normal variant rather than indication of vascular disease . No basilar artery stenosis or suspicious finding. There is acute truncation of the left posterior c erebral artery at the P1 - P2 segment junction. Right posterior cerebral artery is normal. Right internal carotid artery shows no stenosis, dissection or significant finding. Supraclinoid port ion of the left internal carotid artery shows atherosclerotic change and luminal narrowing. Anterior cerebral arteries are unremarkable. The left A1 BRINA segment is absent or very small is a normal varia nt. Left BRINA supply from the right-side circulation. The right middle cerebral artery shows no signif icant finding. Irregular contour is seen in the left middle cerebral artery M1 segment. 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 This is th e occluded vessel causing the left occipital-temporal infarction. Atherosclerotic changes are evident in the left internal carotid artery supraclinoid portion continui ng into the left middle cerebral artery M1 segment. These vessels are considered at risk for future t hromboembolic event.
--- NOTE | 2020-01-27 19:16 | RAD REPORT ---
EXAM DESCRIPTION: MRI - MRA Neck W/Wo Cont - 01/27/2020 6:50 pm CLINICAL HISTORY: Acute CVA TECHNIQUE: MR angiography of the cervical vasculature performed. Coronal imaging plane acquisition u tilized. A 20 MultiHance contrast volume was utilized. Coronal reformatted images were generated and reviewed. Vertical axis 3D rotational projections obtained using maximum intensity projection protoco l. FINDINGS: Aortic arch is 3 vessel with no origins stenosis. Bilateral vertebral artery origins are u nremarkable. The vertebral arteries are codominant. No vertebral artery or basilar artery suspicious finding. The bilateral common carotid arteries show no significant disease. Internal carotid artery's are tort uous but show no stenosis, dissection or other suspicious finding from origin to skullbase. Bilateral subclavian arteries show no suspicious finding. IMPRESSION: MRA neck examination shows no significant or suspicious finding.
[2020-01-27] MEDS ORDERED: ALBUTEROL INHALER 60 PUFF/8 GM IH PRN (20:35)
[2020-01-27] MEDS ORDERED: ONDANSETRON 4 MG/2 ML VIAL IV PRN (20:35)
[2020-01-27] MEDS: INSULIN -REGULAR HUMAN 50 UNIT/0.5 ML ML SQ SCH (21:00)
[2020-01-27] MEDS: NA CHLORIDE 0.9% 1,000 ML IV SCH (21:07)
[2020-01-27] MEDS: ATORVASTATIN 80 MG TAB PO SCH (21:25)
[2020-01-27] MEDS: METOPROLOL XL 50 MG TAB PO SCH (21:25)
[2020-01-27] MEDS: ACETAMINOPHEN 500 MG TAB PO PRN (21:25)
[2020-01-28 01:20] VITALS: BMI 39.4
[2020-01-28] MEDS: ACETAMINOPHEN 500 MG TAB PO PRN (01:23)
[2020-01-28 05:50] LABS: Absolute Lymphocytes (CBC) 2.1 K/uL (0.7-4.9); Basophils % 0.3 % (0-1.3); Hematocrit 40.6 % (39.6-49.0); MPV 9.2 fL (7.6-11.3)
[2020-01-28] MEDS: METOPROLOL XL 50 MG TAB PO SCH ×2 (06:00→17:16)
[2020-01-28 06:05] LABS: BUN Blood Urea Nitrogen 13 mg/dL (7-18); Bicarbonate 26 mmol/L (21-32); Glucose Level 151 mg/dL (74-106); HDL Cholesterol 43 mg/dL (40-60); LDL Cholesterol, Calculated 67 (<130); Potassium 3.9 mmol/L (3.5-5.1); Sodium Level 142 mmol/L (136-145)
[2020-01-28] MEDS: INSULIN -REGULAR HUMAN 50 UNIT/0.5 ML ML SQ SCH ×4 (07:30→21:00)
[2020-01-28] MEDS ORDERED: TRAMADOL HCL 50 MG TAB PO PRN (08:27)
[2020-01-28] MEDS ORDERED: HYDROCODONE/APAP 5/325 MG TAB PO PRN (08:27)
[2020-01-28] MEDS: FOLIC ACID 1 MG TABLET PO SCH (08:38)
[2020-01-28] MEDS: ENOXAPARIN 40 MG/0.4 ML SQ SCH (08:38)
[2020-01-28] MEDS: ASPIRIN EC 81 MG TAB PO SCH (08:38)
[2020-01-28] MEDS: CLOPIDOGREL 75 MG TABLET PO SCH (08:38)
[2020-01-28] MEDS ORDERED: POTASSIUM CL SA 10 MEQ TAB PO ONE (09:00)
--- NOTE | 2020-01-28 09:16 | P.PN ---
Subjective Date of Service: 01/28/20 Primary Care Provider: Dr. de la cruz Chief Complaint: Acute CVA Subjective: No new changes Patient is doing well today. No new complaints. Review of Systems General: Unremarkable Eyes: Unremarkable ENT: Unremarkable Respiratory: Unremarkable Cardiovascular: Unremarkable Gastrointestinal: Unremarkable Genitourinary: Unremarkable Musculoskeletal: Unremarkable Integumentary: Unremarkable Neurological: As per HPI Lymphatics: Unremarkable Physical Examination - Vital Signs Temperature: 98.2 F Blood Pressure: 98/67 Pulse: 66 Respirations: 18 Pulse Ox (%): 97 - Physical Exam General: Alert, In no apparent distress, Oriented x3 HEENT: Atraumatic, Normocephalic Neck: Supple Respiratory: Clear to auscultation bilaterally, Normal air movement Cardiovascular: No edema, Normal S1 S2 Capillary refill: <2 Seconds Gastrointestinal: Normal bowel sounds Musculoskeletal: No contractures, No erythema, No tenderness Integumentary: No erythema Neurological: Abnormal speech (Mild expressive aphasia and visual field cut.) - Studies Laboratory Data (last 24 hrs) 01/27/20 16:18: PT 11.2, INR 0.95 01/27/20 16:18: WBC 8.0, Hgb 14.4, Hct 43.5, Plt Count 232 01/27/20 16:18: Sodium 142, Potassium 4.1, BUN 15, Creatinine 0.78, Glucose 232 H, Magnesium 2.0, Total Bilirubin 0.5, AST 34, ALT 45, Alkaline Phosphatase 65 Assessment & Plan Discharge Plan: Home Plan to discharge in: 24 Hours - Code Status/Comfort Care Code Status Assessed: Yes (Patient is full code) Physician Review Additional Text: Assessment 7 cm x 2.5 cm nonhemorrhagic CVA medial left occipital lobe extending to the left temporal lobe Eea-vsjficx-pgrrabplg diabetes mellitus with hyperglycemia Hypertension Hyperlipidemia History of myocardial infarction COPD Plan 7 cm x 2.5 cm nonhemorrhagic CVA medial left occipital lobe extending to the left temporal lobe: MRI stroke protocol has been completed and does identify the vessel with stroke occurred. Anticipate patient will see Neurology today. Pending completion of echocardiogram and ultrasound of the carotids.. Will continue with daily aspirin and Plavix, folic acid. Will continue patient's home medications. Awaiting consult with physical and speech therapy. DVT prophylaxis with Lovenox 40 mg subcutaneous once daily. Anticipate improvement in the next 24-48 hr at which time the patient be discharged. Mhv-aumsguq-hnlnbntcx diabetes mellitus with hyperglycemia: Will continue the a.c. HS Accu-Cheks and sliding scale insulin therapy. Patient's A1c is elevated at 9.6. Will review all medications and possibly after just a discharge. Hypertension: Have continued patient's metoprolol. Will adjust as necessary. Hyperlipidemia: Have continue patient's atorvastatin, will adjust as necessary. History of myocardial infarction: Patient with history of myocardial infarction with stent placement. Patient reports feeling his daily aspirin for this. COPD: Will provide patient with albuterol inhaler for as needed use during this hospitalization. Patient does not report that he takes any inhalers on outpatient basis currently. Critical Care: No Time Spent Managing Pts Care (In Minutes): 55
[2020-01-28] MEDS ORDERED: HYDROCODONE/APAP 5/325 MG TAB PO ONE (11:24)
[2020-01-28] MEDS ORDERED: NA CHLORIDE 0.9% 500 ML IV ONE (11:24)
[2020-01-28] MEDS: NA CHLORIDE 0.9% 1,000 ML IV SCH ×2 (12:03→20:24)
--- NOTE | 2020-01-28 12:55 | ECHO ---
HEIGHT: 5 ft 4 in WEIGHT: 230 lb 0 oz DATE OF STUDY: 01/28/[address]: Darrion London NP 2-DIMENSIONAL: YES M.MODE: YES DOPPLER: YES COLOR FLOW: YES TDS: NO PORTABLE: NO DEFINITY: NO BUBBLE STUDY: NO DIAGNOSIS: STROKE CARDIAC HISTORY: CATHERIZATION: NO SURGERY: NO PROSTHETIC VALVE: NO PACEMAKER: NO MEASUREMENTS (cm) DIASTOLIC (NORMALS) SYSTOLIC (NORMALS) IVSd 0.9 (0.6-1.2) LA Diam 4.4 (1.9-4.0) LVEF 40-45% LVIDd 6.5 (3.5-5.7) LVIDs 4.3 (2.0-3.5) %FS 35% LVPWd 1.1. (0.6-1.2) Ao Diam 2.6 (2.0-3.7) 2 DIMENSIONAL ASSESSMENT: RIGHT ATRIUM: NORMAL LEFT ATRIUM: ENLARGED RIGHT VENTRICLE: NORMAL LEFT VENTRICLE: DILATED TRICUSPID VALVE: NORMAL MITRAL VALVE: MILD MR PULMONIC VALVE: MILD PI AORTIC VALVE: MILDY CALCIFIED PERICARDIAL EFFUSION: TRACE AORTIC ROOT: NORMAL LEFT VENTRICULAR WALL MOTION: ANTEROSEPTAL AKINESIS. DOPPLER/COLOR FLOW: MILD PULMONARY INSUFFICIENCY, MILD MITRAL REGURGITATION. COMMENTS: NORMAL LEFT VENTRICULAR EJECTION FRACTION 55-60%. NORMAL WALL MOTION. MILD LEFT ATRIAL ENLARGEMENT. TECHNOLOGIST: TANESHA ROJAS
--- NOTE | 2020-01-28 15:48 | RAD REPORT ---
EXAM DESCRIPTION: US - CP - 01/28/2020 3:32 pm CLINICAL HISTORY: CVA Headache, drowsiness, CVA symptomology COMPARISON: MRA Neck W/Wo Cont dated 01/27/2020 TECHNIQUE: Real-time sonographic evaluation of both carotid systems was performed. Doppler interroga tion was performed with waveform tracing bilaterally. FINDINGS: Normal high resistance waveforms are noted in both external carotid arteries. The common c arotid arteries and internal carotid arteries show normal low resistance waveforms. No significant plaque formation is seen. Peak systolic and end diastolic velocity values and the ICA/ CCA ratios are in the non-hemodynamically significant range. Antegrade flow seen in both vertebral arteries. IMPRESSION: No significant atherosclerotic changes noted. No evidence of a hemodynamically significant stenosis.
--- NOTE | 2020-01-28 17:17 | RAD REPORT ---
EXAM DESCRIPTION: CT - Head Brain Wo Cont - 01/28/2020 5:07 pm CLINICAL HISTORY: R/O hemorrhagic stroke CVA, headache and drowsiness COMPARISON: Head Brain Wo Cont dated 01/27/2020 TECHNIQUE: All CT scans are performed using dose optimization technique as appropriate and may inclu de automated exposure control or mA/KV adjustment according to patient size. FINDINGS: Area of diminished density is again seen left occipital lobe compatible with left [employer] terr itory infarct. No evidence of hemorrhagic conversion.No hydrocephalus.No areas of brain edema or evid ence of midline shift. The paranasal sinuses and mastoids are clear. The calvarium is intact. IMPRESSION: Subacute left posterior cerebral artery territory infarct noted without evidence of hemo rrhagic conversion.
--- NOTE | 2020-01-28 17:19 | CON ---
Reason For Consultation: Consultation was called because of acute stroke. History Of Present Illness: Mr. Andrews is a 60-year-old right-handed patient with multip le medical problems including diabetes mellitus type 2, hypertension, dyslipidemia, myocardial infarc tion, status post left anterior descending artery stent in January of 2018, who comes in with visual dis turbances and headache and expressive aphasia. However, he had symptoms on the 25 of January around 3 p.m. but did not immediately seek medical attention. He did not come to the hospital the following d ay and was therefore way out of the window for tissue plasminogen activator. His CT scan identified a large 7 x 2.5 cm nonhemorrhagic stroke in the medial left occipital lobe extending into the left te mporal lobe and coming off the left posterior cerebral artery. The patient's clinical deficits which at that time was largely a right homonymous hemianopsia and not an aphasia as he had largely resolve d and had an NIH stroke scale of 2 in the emergency room. He had stopped all of his anti-platelet me dications about 1 year ago after he had a stent done. Emergency room has given aspirin, Plavix, foli c acid, and started on high dose statin with some permissive hypertension. Subsequent brain MRA show ed an acute truncation of the left posterior cerebral artery at the T1-T2 junction and this was ident ified as the etiology of his left occipital temporal infarction. Furthermore, arthrosclerotic change s were seen in the left internal carotid artery supraclinoid portion continuing into the left middle cerebral artery M1 segment and these were felt to be at significant risk for future thromboembolic st rokes. Past Medical History: As indicated, in addition to hepatitis, COPD. Surgical History: Surgery after broken jaw, surgery on the heel, and multiple cardiac stents. Social History: He reports smoking, alcohol, tobacco up to year, actually had his myocardial infarct ion 2 years ago. He is with 1 child and lives at home. He is not working. Family History: Positive for heart disease in mother and she had a myocardial infarction that led to her . Also in father liver disease, cancer, and alcoholic. Allergies: NO KNOWN DRUG ALLERGIES. Current Medications: He has [place] for pain as 10/325, Ventolin inhaler, aspirin 162 mg daily, Lipito r 80 mg at bedtime, Plavix 75 mg daily, Lovenox 40 mg subcutaneously daily, folic acid 1 mg daily. H e has insulin sliding scale. Toprol 50 mg twice daily to be held if blood pressure is less than 170. Zofran 4 mg every 6 hours as needed. He did receive a bolus of fluid in the emergency room and he had another 500 cc of normal saline. He is also on Topamax started now 25 mg twice a day and tramado l 50 mg every 4-6 hours as needed. Review of Systems: He denies any recent fevers or chills, nausea, vomiting, any myalgias or arthralgias, aside from head ache after stroke. No prior headaches. No other positives on a 10-point systems review. Physical Examination: Vital Signs: Blood pressure 108/87, pulse of 65, respiratory rate 18, temperature 98.4, oxygen satur ation 98% on room air. Weight 230 pounds, height 5 feet 4 inches, BMI 39.5. GENERAL: Mr. Andrews is resting in bed. He does have a headache rated at 4/10. HEENT: He is otherwise normocephalic, atraumatic. Sclerae anicteric. Oropharynx is pink and moist. Neck: Supple. Chest: Clear. Heart: Regular. Extremities: Show no edema, cyanosis, or clubbing. He does have an obese abdomen. Neurological: He is alert and oriented to situation, place, person. Follows all commands appropriat inderjit. His cranial nerves 2 through 12 show a right homonymous hemianopsia. Otherwise intact and his facial sensation intact to light touch bilaterally. The patient is symmetric with equal excursions b ilaterally. His tongue and palate are in the midline and shoulder shrug is 5/5. His motor examinati on upper and lower extremities 5/5 proximally and distally. Sensory exam, mild stocking-glove loss t o light touch, temperature in the legs and arms. Coordination intact in upper and lower extremities. Gait, he will be ambulated with the day physical therapist. Laboratory Studies: Complete blood count with differential is normal. Coagulation panel shows INR 0 .95. Chemistries are all unremarkable; however, his glucose is elevated to 255. His hemoglobin A1c 9.6. Calcium after hydration is low at 8.4. Beta natriuretic peptide 1473. Albumin is 3.2. His LD L cholesterol 67, HDL cholesterol 43, TSH 2.18. His chest x-ray shows mild edema. His neck magnetic resonance angiogram is unremarkable. Assessment: Mr. Andrews is a 60-year-old right-handed patient with multiple stroke risk factors inc luding hypertension, diabetes, dyslipidemia, prior myocardial infarction with stents in the cardiac v essels, who comes in with a large 7 x 2.5 cm left posterior cerebral artery stroke and also he has in internal carotid artery and middle cerebral artery stenosis that is significant in the left brain. He is at risk for thromboembolic strokes in the left hemisphere and anterior portion of the brain. H is clinical deficits while limited to visual deficits now may worsen depending on the association are as to impact the language and he is at risk of personal barrier in addition to having an MCA stroke w hich could be more devastating. Plan: 1.He should have permissive hypertension. Blood pressure should be kept elevated. He is quite belo w. He will receive IV fluids. Hold blood pressure medicine unless his blood pressure is greater filipe n 170 and will keep it this way for the next 3 days. 2.He should continue again with the medications as indicated. Aspirin and Plavix along with the Lip itor and folic acid and DVT prophylaxis. 3.He should have a 4-vessel angiogram and potential for intracerebral arterial stenting that may be done in [place] or other procedures as appropriate. 4.He should be evaluated by Physical, Occupational, and Speech Therapy for potential candidate for r ehabilitation, which may include outpatient speech and/or physical therapy to help with hand-eye coor dination, holding objects while ambulating or mobilizing. 5.He should not drive or operate heavy machinery given his large right homonymous hemianopsia. He m ay require reevaluation with certification before returning to driving. 6.He should be followed in Dr. Shetty's clinic 1 month after his discharge. RAKAN/RAUL Voice ID: [id number] Report ID: [id number]
[2020-01-28] MEDS: TOPIRAMATE 25 MG TAB PO SCH (20:20)
[2020-01-28] MEDS: HYDROCODONE/APAP 10/325 TAB PO PRN (20:20)
[2020-01-28] MEDS: ATORVASTATIN 80 MG TAB PO SCH (20:21)
[2020-01-29] MEDS: HYDROCODONE/APAP 10/325 TAB PO PRN ×3 (00:44→08:44)
[2020-01-29] MEDS: METOPROLOL XL 50 MG TAB PO SCH (06:00)
[2020-01-29 06:34] LABS: BUN Blood Urea Nitrogen 9 mg/dL (7-18); Bicarbonate 26 mmol/L (21-32); Glucose Level 161 mg/dL (74-106); Potassium 3.8 mmol/L (3.5-5.1); Sodium Level 140 mmol/L (136-145)
[2020-01-29] MEDS: INSULIN -REGULAR HUMAN 50 UNIT/0.5 ML ML SQ SCH ×2 (07:30→12:00)
[2020-01-29] MEDS: ASPIRIN EC 81 MG TAB PO SCH (08:43)
[2020-01-29] MEDS: CLOPIDOGREL 75 MG TABLET PO SCH (08:43)
[2020-01-29] MEDS: TOPIRAMATE 25 MG TAB PO SCH (08:44)
[2020-01-29] MEDS: FOLIC ACID 1 MG TABLET PO SCH (08:44)
[2020-01-29] MEDS: ENOXAPARIN 40 MG/0.4 ML SQ SCH (08:44)
[2020-01-29] MEDS ORDERED: POTASSIUM CL SA 10 MEQ TAB PO ONE (09:00)
[2020-01-29 10:30] VITALS: O2SAT 95
[2020-01-29 13:42] VITALS: BP 122/68; TEMP 98
--- NOTE | 2020-01-29 15:02 | P.DS ---
Admission Date: 01/27/20 Discharge Date: 01/29/20 Primary Care Provider: Dr. Villagomez Disposition: DC HOME/HOME HEALTH CARE Discharge Condition: GOOD Reason for Admission: Acute CVA Consultations: Neurology-Dr. Shetty Procedures: ECHO: Ejection fraction 40-45% LEFT VENTRICULAR WALL MOTION: ANTEROSEPTAL AKINESIS. DOPPLER/COLOR FLOW: MILD PULMONARY INSUFFICIENCY, MILD MITRAL REGURGITATION. COMMENTS: NORMAL LEFT VENTRICULAR EJECTION FRACTION 55-60%. NORMAL WALL MOTION. MILD LEFT ATRIAL ENLARGEMENT. MRI Brain: FINDINGS: Diffusion-weighted imaging shows a large area of abnormal signal involving the medial portion of the left occipital lobe extending anteriorly into the posteromedial left temporal lobe. There is corresponding diminished signal on ADC mapping. There is corresponding hyperintense T2/IR signal. Diminished signal in cortical edema changes are present on the T1 sequencing. A small punctate diffusion signal abnormality is present in the posterolateral left thalamus. This also has corresponding diminished signal on ADC mapping and increased T2 signal. No abnormalities of the right cerebral hemisphere. Brainstem, cerebellum and basal ganglia are spared. There is some localized edema from this large area of infarction. However, there is no significant mass effect. No midline shift. No intracranial hemorrhage changes are present. Post-contrast view show no abnormal enhancement in the infarctions zone. No abnormal dural thickening or enhancement. Ventricles are unremarkable. Mastoid air cells and paranasal sinuses are clear. IMPRESSION: Enlarged nonhemorrhagic infarction is present in the medial occipital lobe and posteromedial temporal lobe on the left. This is the vascular distribution of the left posterior cerebral artery. Questionable punctate focus along the posterolateral left thalamus. This may be from small perforating branch from the P1 segment of the left posterior cerebral artery or a posterior communicating artery clinic licensed practical nurse. There is localized edema at the infarction zone but no significant mass-effect, midline shift or emergent finding. MRA Brain: FINDINGS: Major venous sinuses are patent. Distal vertebral arteries are unremarkable. Narrowing of the distal left vertebral artery is seen as normal variant rather than indication of vascular disease. No basilar artery stenosis or suspicious finding. There is acute truncation of the left posterior cerebral artery at the P1 - P2 segment junction. Right posterior cerebral artery is normal. Right internal carotid artery shows no stenosis, dissection or significant finding. Supraclinoid portion of the left internal carotid artery shows atherosclerotic change and luminal narrowing. Anterior cerebral arteries are unremarkable. The left A1 BRINA segment is absent or very small is a normal variant. Left BRINA supply from the right-side circulation. The right middle cerebral artery shows no significant finding. Irregular contour is seen in the left middle cerebral artery M1 segment. 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 This is the occluded vessel causing the left occipital-temporal infarction. Atherosclerotic changes are evident in the left internal carotid artery supraclinoid portion continuing into the left middle cerebral artery M1 segment. These vessels are considered at risk for future thromboembolic event. MRA Neck: FINDINGS: Aortic arch is 3 vessel with no origins stenosis. Bilateral vertebral artery origins are unremarkable. The vertebral arteries are codominant. No vertebral artery or basilar artery suspicious finding. The bilateral common carotid arteries show no significant disease. Internal carotid artery's are tortuous but show no stenosis, dissection or other suspicious finding from origin to skullbase. Bilateral subclavian arteries show no suspicious finding. IMPRESSION: MRA neck examination shows no significant or suspicious finding. Repeat CT scan: FINDINGS: Area of diminished density is again seen left occipital lobe compatible with left COMPANY ACCOUNTANT territory infarct. No evidence of hemorrhagic conversion.No hydrocephalus.No areas of brain edema or evidence of midline shif t. The paranasal sinuses and mastoids are clear. The calvarium is intact. IMPRESSION: Subacute left posterior cerebral artery territory infarct noted without evidence of hemorrhagic conversion. Medical problem list: 7 cm x 2.5 cm nonhemorrhagic CVA medial left occipital lobe extending to the left temporal lobe Bro-sayrqoa-mvcqxumuv diabetes mellitus with hyperglycemia Hypertension Hyperlipidemia History of myocardial infarction COPD Diabetes mellitus type 2 [id number] Brief History of Present Illness: 60-year-old male with multiple medical problems including diabetes mellitus type 2, hypertension, hyperlipidemia, CTA with prior stent presented with visual disturbances, headaches and expressive aphasia. CT scan revealed large 7 x 2.5 cm nonhemorrhagic stroke in the medial left occipital lobe extending into the left temporal lobe and coming off the left posterior cerebral artery. Clinical deficits include right home ominous hemianopsia. Patient was admitted for further evaluation and treatment. Hospital Course: Patient presented with visual disturbances, dizziness. Patient found to have 7 cm by 2.5 cm nonhemorrhagic CVA to the medial left occipital lobe extending to the left temporal lobe. Repeat CT scan shows no extension or conversion to hemorrhagic CVA. Neurology was consulted. Patient has done well during the course of his stay. Neurology recommends discharge at this time with home health and physical therapy. At discharge patient will continue with aspirin 81 mg daily, Plavix 75 mg daily, folic acid 1 mg daily, and Lipitor 40 mg daily. Recommend follow up with neurology within 1 week to follow up this hospitalization. Patient will require a 4 vessel angiogram for potential intra cerebral arterial stent in the near future. This will have to be done in [place]. Neurology will help make arrangements for this. Home health and physical therapy will be arranged prior to discharge. Due to his right homonymous hemianopsia, should not drive or operate heavy machinery. He may require we evaluation with certification before it returning to drive. It is also recommended that he should have permissive hypertension. Blood pressure should be kept elevated greater than 170 over the next 3 days. Thereafter recommend to maintain blood pressure around 140-150 systolic. Patient with hypertension. Recommend to maintain blood pressure systolic above 170 over the next 3 days. Therefore hold blood pressure medication if systolic greater than 170 over the next 3 days. After 3 days patient will continue with metformin 50 mg 1 pill twice daily. Further adjustment in medication can be done by his PCP within the next week to further monitor and address. Patient with hyperlipidemia. As mentioned above patient will continue with Lipitor 80 mg daily. Patient with CAD with prior ID. As recommended above patient will continue with aspirin, metoprolol and Plavix. Recommend follow up with cardiology as directed. Patient with COPD. At discharge will provide Symbicort 2 puffs twice daily and Pro air 2 puffs 3 times a day as needed for shortness of breath. Recommend follow up and establish care with pulmonology to further monitor and address. Patient with diabetes mellitus type 2 [id number]. A1c 9.6. Medications have been adjusted for better control. At discharge patient will continue with his current medications of glyburide 5 mg twice daily and metformin ER 1000 mg 1 pill twice daily. Recommend to maintain blood sugar less 140 fasting less drink after meals. Further adjustment can be done by his PCP. Vital Signs/Physical Exam: Temp Pulse Resp BP Pulse Ox 98 F 73 18 122/68 98 01/29/20 12:00 01/29/20 12:00 01/29/20 12:00 01/29/20 12:00 01/29/20 12:00 General: Alert, In no apparent distress, Oriented x3, Cooperative HEENT: Atraumatic, Other (Visual disturbance noted by patient) Respiratory: Clear to auscultation bilaterally, Normal air movement Cardiovascular: Normal pulses, Regular rate/rhythm Gastrointestinal: Normal bowel sounds, No masses, No rebound, No guarding Musculoskeletal: No erythema, No tenderness, No warmth Integumentary: No tenderness/swelling, No erythema, No warmth, No cyanosis Neurological: Normal strength at 5/5 x4 extr, Normal affect Laboratory Data at Discharge: WBC 8.2 K/uL (4.3-10.9) 01/28/20 05:20 Hgb 13.4 g/dL (13.6-17.9) L 01/28/20 05:20 Hct 40.6 % (39.6-49.0) 01/28/20 05:20 Plt Count 192 K/uL (152-406) 01/28/20 05:20 PT 11.2 SECONDS (9.5-12.5) 01/27/20 16:18 INR 0.95 01/27/20 16:18 Sodium 140 mmol/L (136-145) 01/29/20 05:24 Potassium 3.8 mmol/L (3.5-5.1) 01/29/20 05:24 BUN 9 mg/dL (7-18) 01/29/20 05:24 Creatinine 0.56 mg/dL (0.55-1.3) 01/29/20 05:24 Glucose 161 mg/dL (74-106) H 01/29/20 05:24 Magnesium 2.0 mg/dL (1.8-2.4) 01/27/20 16:18 Total Bilirubin 0.5 mg/dL (0.2-1.0) 01/27/20 16:18 AST 34 U/L (15-37) 01/27/20 16:18 ALT 45 U/L (12-78) 01/27/20 16:18 Alkaline Phosphatase 65 U/L (45-117) 01/27/20 16:18 Triglycerides 124 mg/dL (<150) 01/28/20 05:20 Cholesterol 135 mg/dL (<200) 01/28/20 05:20 HDL Cholesterol 43 mg/dL (40-60) 01/28/20 05:20 Cholesterol/HDL Ratio 3.14 01/28/20 05:20 Home Medications: Albuterol Sulfate [Proair Hfa] 2 puff IH BID PRN #1 hfa.aer.ad 01/29/20 Aspirin 81 mg PO DAILY #30 tab.chew 01/29/20 Atorvastatin Calcium [Lipitor] 80 mg PO BEDTIME #30 tab 01/29/20 Budesonide/Formoterol Fumarate [Symbicort 160-4.5 Mcg Inhaler] 2 puff IH BID #1 hfa.aer.ad 01/29/20 Clopidogrel Bisulfate [Plavix*] 75 mg PO DAILY #30 tablet 01/29/20 Folic Acid 1 mg PO DAILY #90 tablet 01/29/20 Metformin ER [Glucophage ER*] 100 mg PO BID #120 tab.sa 01/29/20 Metoprolol Succinate [Toprol Xl*] 50 mg PO BID 6AM 6PM #60 tab 01/29/20 Metoprolol Tartrate [Lopressor*] 50 mg PO BID #60 tab 01/29/20 glyBURIDE [Glyburide] 5 mg PO BID #60 01/29/20 New Medications: Aspirin 81 mg PO DAILY #30 tab.chew Folic Acid 1 mg PO DAILY #90 tablet Metformin ER [Glucophage ER*] 100 mg PO BID #120 tab.sa glyBURIDE [Glyburide] 5 mg PO BID #60 Atorvastatin Calcium [Lipitor] 80 mg PO BEDTIME #30 tab Metoprolol Tartrate [Lopressor*] 50 mg PO BID #60 tab Clopidogrel Bisulfate [Plavix*] 75 mg PO DAILY #30 tablet Albuterol Sulfate [Proair Hfa] 2 puff IH BID PRN #1 hfa.aer.ad PRN Reason: Shortness Of Breath Budesonide/Formoterol Fumarate [Symbicort 160-4.5 Mcg Inhaler] 2 puff IH BID #1 hfa.aer.ad Metoprolol Succinate [Toprol Xl*] 50 mg PO BID 6AM 6PM #60 tab Patient Discharge Instructions: 1. Follow up with PCP to follow up hospitalization. 2. Patient presented with visual disturbances, dizziness. P atient found to have 7 cm by 2.5 cm nonhemorrhagic CVA to the medial left occipital lobe extending to the left temporal lobe. Repeat CT scan shows no extension or conversion to hemorrhagic CVA. Neurology was consulted. Patient has done well during the course of his stay. Neurology recommends discharge at this time with home health and physical therapy. At discharge patient will continue with aspirin 81 mg daily, Plavix 75 mg daily, folic acid 1 mg daily, and Lipitor 40 mg daily. Recommend follow up with neurology within 1 week to follow up this hospitalization. Patient will require a 4 vessel angiogram for potential intra cerebral arterial stent in the near future. This will have to be done in [place]. Neurology will help make arrangements for this. Home health and physical therapy will be arranged prior to discharge. Due to his right homonymous hemianopsia, should not drive or operate heavy machinery. He may require we evaluation with certification before it returning to drive. It is also recommended that he should have permissive hypertension. Blood pressure should be kept elevated greater than 170 over the next 3 days. Thereafter recommend to maintain blood pressure around 140-150 systolic. 3. Patient with hypertension. Recommend to maintain blood pressure systolic above 170 over the next 3 days. Therefore hold blood pressure medication if systolic greater than 170 over the next 3 days. After 3 days patient will continue with metformin 50 mg 1 pill twice daily. Further adjustment in medication can be done by his PCP within the next week to further monitor and address. 4. Patient with hyperlipidemia. As mentioned above patient will continue with Lipitor 80 mg daily. 5. Patient with CAD with prior ID. As recommended above patient will continue with aspirin, metoprolol and Plavix. Recommend follow up with cardiology as directed. 6. Patient with COPD. At discharge will provide Symbicort 2 puffs twice daily and Pro air 2 puffs 3 times a day as needed for shortness of breath. Recommend follow up and establish care with pulmonology to further monitor and address. 7. Patient with diabetes mellitus type 2 [id number]. A1c 9.6. Medications have been adjusted for better control. At discharge patient will continue with his current medications of glyburide 5 mg twice daily and metformin ER 1000 mg 1 pill twice daily. Pablo mmend to maintain blood sugar less 140 fasting less drink after meals. Further adjustment can be done by his PCP. Diet: ADA Activity: Ad terrell Time spent managing pt's care (in minutes): 55
== END 2020-01-29 16:26 | disposition home health service (06) | DRG 66 ==
LOC: ER 13:54 → ERHOLD 17:33 → OBSVTOIN 18:28 → 2ND 19:50
PROVIDERS: ADMIT Family Medicine; ATTEND Family Medicine
DX: I63.9 Cerebral infarction, unspecified (principal); I10 Essential (primary) hypertension; E78.5 Hyperlipidemia, unspecified; I25.2 Old myocardial infarction; E11.65 Type 2 diabetes mellitus with hyperglycemia; F17.200 Nicotine dependence, unspecified, uncomplicated; R47.01 Aphasia; R51 Headache; R29.702 NIHSS score 2; H53.8 Other visual disturbances; H53.9 Unspecified visual disturbance; I25.10 Atherosclerotic heart disease of native coronary artery without angina pectoris; J44.9 Chronic obstructive pulmonary disease, unspecified; Z95.5 Presence of coronary angioplasty implant and graft; Z79.82 Long term (current) use of aspirin; Z79.51 Long term (current) use of inhaled steroids; Z79.52 Long term (current) use of systemic steroids; Z79.899 Other long term (current) drug therapy; Z11.59 Encounter for screening for other viral diseases; Z56.0 Unemployment, unspecified
CPT/HCPCS: 36415; 70450; 70544; 70549; 70553; 71045; 80048; 80061; 80076; 82947; 83036; 83735; 83880; 84443; 84484; 85025; 85610; 92507; 92523; 93005; 93306; 93880; 96365; 99285; A9577; G0378; J1650; J7030; U0002

== ENCOUNTER 2020-02-26 08:26 | Day surgery (SDC) | payer OTHER ==
[2020-02-26] MEDS ORDERED: Ringers Lactate 1,000 ML IV ONE (09:01)
[2020-02-26] MEDS: CEFAZOLIN/SWI 1gm 1 GM/10 ML SYR ONE ×2 (09:57→10:20)
[2020-02-26] MEDS: LIDOCAINE 1% MPF 30 ML VIAL ONE ×2 (09:57→10:30)
[2020-02-26] MEDS ORDERED: FENTANYL CITR 100 MCG/2 ML ONE (10:16)
[2020-02-26] MEDS ORDERED: LIDOCAINE 2% MPF 5 ML VIAL ONE (10:17)
[2020-02-26] MEDS ORDERED: MIDAZOLAM HCL 2 MG/2 ML INJ ONE (10:17)
[2020-02-26] MEDS ORDERED: propofoL 200 MG/20 ML VIAL IV ONE ×2 (10:17→10:56)
[2020-02-26] MEDS ORDERED: ONDANSETRON 4 MG/2 ML VIAL ONE (10:19)
[2020-02-26 11:49] VITALS: BP 113/58; TEMP 97.3; O2SAT 98
[2020-02-26] MEDS ORDERED: HYDROCODONE/APAP 7.5/325 MG TAB ONE (12:01)
--- NOTE | 2020-02-26 21:07 | OP ---
Date of Procedure: 02/26/2020 Surgeon: Dave Khan MD Defence Intelligence Analyst: EILEEN Morales. Preoperative Diagnosis: Left-sided headache, vision changes, rule out temporal arteritis. Postoperative Diagnosis: Left-sided headache, vision changes, rule out temporal arteritis. Procedure: Left temporal artery biopsy and utilization of Doppler. Estimated Blood Loss: Minimal. Specimen: Left temporal artery. Findings: As above. Anesthesia: MAC. Complications: None. Condition: The patient tolerated the procedure in stable condition, taken to Recovery in good genera l condition. Procedure In Detail: The patient was brought to the OR and placed in supine position. MAC anesthesi a was begun. The patient was prepped and draped in the usual sterile fashion. Lidocaine 1% infiltra trang locally after the Doppler device was used to identify the branch of the temporal artery. Then, a 4 cm incision was made. Subcutaneous tissue was divided. Proximal and distal part of the artery id entified and clamped and divided between clamps, 4 cm segment sent to Pathology. 4-0 silk was used t o tie off both ends. Wound irrigated, bleeding controlled with cautery. 4-0 chromic used to approxi mate the subcutaneous tissue and close the skin. Sterile dressing applied. The patient was awakened and taken to Recovery in good general condition. Discharge Note: The patient will go to Day Surgery and home when stable. Disposition: Home. Condition: Stable. Discharge Instructions: Resume home medications and diet. Activity as tolerated. No heavy lifting. Remove outer dressing in 2 days. Shower. Keep wound clean and dry. Keep Steri-Strips on at all t imes. Follow up in my office in 2 weeks. Call for appointment. Follow up with Dr. Suarez. Tylenol No. 3 one tablet p.o. q.4 p.r.n. pain. /MODL Voice ID: [id number] Report ID: [id number]
== END 2020-02-26 12:29 | disposition home or self-care (01) ==
LOC: OR 08:26
PROVIDERS: ATTEND Surgery
PROC: 03BT0ZX Excision of Left Temporal Artery, Open Approach, Diagnostic (ICD-10-PCS; principal; 2020-02-26 11:00)
DX: R51 Headache (principal); H53.9 Unspecified visual disturbance; I10 Essential (primary) hypertension; E11.9 Type 2 diabetes mellitus without complications; Z11.59 Encounter for screening for other viral diseases
CPT/HCPCS: 82947; 88305; 37609; U0002; J2704 ×2; J2250; J3010; J0690; J7120; J2405

== ENCOUNTER 2021-04-19 06:07 | Observation (INO) | payer OTHER ==
[2021-04-14 10:28] LABS: Urine Appearance CLEAR (Clear); Urine Bilirubin NEGATIVE (Negative); Urine Blood NEGATIVE (Negative); Urine Color YELLOW (Yellow); Urine Glucose 3+ (Negative); Urine Protein NEGATIVE (Negative); Urine Specific Gravity 1.025 (1.005-1.030); Urine pH 5.5 (5.0-7.0)
[2021-04-14 10:32] LABS: Urine Microscopic Reflex NO UMIC
[2021-04-14 10:39] LABS: Absolute Lymphocytes (CBC) 2.7 K/uL (0.7-4.9); Basophils % 0.4 % (0-1.3); Hematocrit 41.8 % (39.6-49.0); Lymphocytes % 27.6 % (15.3-44.8); MPV 8.5 fL (7.6-11.3)
[2021-04-14 10:42] LABS: Protime INR 0.91
[2021-04-14 10:52] LABS: ALT/SGPT 59 U/L (12-78); AST/SGOT 23 U/L (15-37); Albumin 3.7 g/dL (3.4-5.0); Alkaline Phosphatase 69 U/L (45-117); BUN Blood Urea Nitrogen 14 mg/dL (7-18); Bicarbonate 28 mmol/L (21-32); Bilirubin Total 0.4 mg/dL (0.2-1.0); Glucose Level 276 mg/dL (74-106); Potassium 4.9 mmol/L (3.5-5.1); Protein, Total 7.5 g/dL (6.4-8.2); Sodium Level 140 mmol/L (136-145)
--- NOTE | 2021-04-14 11:01 | RAD REPORT ---
EXAM DESCRIPTION: Ruth Ann Middleton And Alex (2 Views)04/14/2021 10:38 am CLINICAL HISTORY: Preop for knee surgery. Hypertension COMPARISON: 2019 FINDINGS: The lungs appear clear of acute infiltrate. The heart is borderline enlarged. Old left cl avicular fracture IMPRESSION: No acute abnormalities displayed
[2021-04-19] MEDS ORDERED: CELECOXIB 100 MG CAPSULE ONE (06:58)
[2021-04-19] MEDS ORDERED: NA CHLORIDE 0.9% 1,000 ML ONE ×2 (06:59→08:39)
[2021-04-19] MEDS ORDERED: Oxycodone HCl/Acetaminophen 1 TAB TAB ONE (06:59)
[2021-04-19] MEDS ORDERED: ACETAMINOPHEN 500 MG TAB ONE (06:59)
[2021-04-19] MEDS ORDERED: GABAPENTIN 100 MG CAP ONE (06:59)
[2021-04-19] MEDS ORDERED: CEFAZOLIN 2 GM IN 0.9% NACL 2 GM/100 ML BAG ONE (07:00)
[2021-04-19] MEDS ORDERED: TRANEXAMIC ACID 1,000 MG in NA CHLORIDE 0.9% 50 ML IV ONE (08:00)
[2021-04-19] MEDS ORDERED: HYDROMORPHONE HCL 1 MG/ML INJ ONE (08:00)
[2021-04-19] MEDS ORDERED: MIDAZOLAM HCL 2 MG/2 ML INJ ONE (08:08)
[2021-04-19] MEDS ORDERED: propofoL 200 MG/20 ML VIAL IV ONE (08:08)
[2021-04-19] MEDS ORDERED: LIDOCAINE 2% MPF 5 ML VIAL ONE (08:08)
[2021-04-19] MEDS ORDERED: BUPIVACAINE 0.25% PF 30 ML VIAL ONE (08:08)
[2021-04-19] MEDS ORDERED: NS 0.9% VIAL 10 ML ONE (08:08)
[2021-04-19] MEDS ORDERED: KETAMINE HCL 500 MG/5 ML VIAL ONE (08:08)
[2021-04-19] MEDS ORDERED: LIDOCAINE 1% MPF 5 ML VIAL ONE (08:08)
[2021-04-19] MEDS ORDERED: KETOROLAC 30 MG/ML INJ ONE (08:08)
[2021-04-19] MEDS ORDERED: FENTANYL CITR 100 MCG/2 ML ONE ×2 (08:08→10:16)
[2021-04-19] MEDS ORDERED: ONDANSETRON 4 MG/2 ML VIAL ONE (08:09)
[2021-04-19] MEDS ORDERED: dexAMETHasone 4 MG/ML VIAL ONE (08:10)
[2021-04-19] MEDS ORDERED: ONDANSETRON 4 MG/2 ML VIAL IV PRN (09:52)
[2021-04-19] MEDS ORDERED: NALOXONE 0.4 MG/ML VIAL IV PRN (09:52)
[2021-04-19] MEDS ORDERED: DOCUSATE NA 100 MG CAP PO PRN (09:52)
[2021-04-19] MEDS ORDERED: MORPHINE/NS PCA 50 MG/50 ML PCA.SYRING IV PRN (09:52)
--- NOTE | 2021-04-19 09:52 | P.BOP ---
Preoperative diagnosis: left knee arthritis Postoperative diagnosis: same Primary procedure: left total knee arthoplasty Estimated blood loss: 100ccs Anesthesia: General Complications: None Transferred to: Recovery Room Condition: Good
--- NOTE | 2021-04-19 10:12 | OP ---
Date of Procedure: 04/19/2021 Surgeon: Kj Ruff MD Preoperative Diagnosis: Left knee arthritis. Postoperative Diagnosis: Left knee arthritis. Procedure: Left total knee arthroplasty using the Biomet Vanguard system. Estimated Blood Loss: 100 mL. Complications: There were no complications. Specimens: No pathology specimens. Indications For Operation: Mr. Andrews is a 61-year-old male, who unfortunately has had a CVA as we ll as a heart attack and slightly overweight and is having a lot of difficulty with mobility because of the significant pain and problems related to his left knee. X-rays demonstrate severe arthritis i n his knee and despite conservative care, he is unable to go without pain. Risks, benefits, and alte rnatives to total knee arthroplasty were discussed with him. He states he understands things as pres ented and wished to proceed. Description Of Procedure: The patient was taken to the operating room and placed in supine position. General anesthesia was obtained by staff. Following this, a well-padded tourniquet was placed on s uperior left thigh. Left lower extremity was then prepped and draped in usual sterile fashion proced ure. Following this, the leg was then elevated, bent, and tourniquet was raised. A standard anterio r incision was then taken down carefully through the skin and soft tissues. Meticulous hemostasis be ing maintained using Bovie electrocautery. This leads down to the appropriate level, which was explo ited to allow for exposure of the extensor mechanism. A standard medial parapatellar arthrotomy was then performed with liberation approximately 20 mL of rather normal-appearing synovial fluid. This w as followed by resection of the lateral meniscus and medial meniscus. The anterior cruciate ligament had been previously torn is not localized. After this, attention was then turned to the femur. An intramedullary alignment guide was then placed. Distal cut was made. It was then appropriately size d using Biomet Sizer. The remainder of the femoral cuts were then made without difficulty. After th is, attention was turned to the tibia. Tibial cut was then made without difficulty and any debris wa s removed. The trial femur and tibia were then placed. It was brought down to full extension. Atte ntion was then turned to the patella. It was then calipered and cut with the trial patella being andrea iliana. The knee appeared to be symmetrical, may be a slightly bit looser on the lateral aspect and med ial aspect, but only a tiny bit very small medial collateral recession was obtained. This was follow ed by placement of a box placed with a bone plug and punching of the tibia. The final components wit h the exception of the final polyethylene were then cemented in place. All unsupported cement was re moved. This was followed by taking the knee through full range of motion and the patella glides exce llently. It was found to be balanced, may be a tiny bit looser laterally than medial, although did n ot feel that we should step of the poly higher. After this, polyp removed. It was copiously irrigat ed and some small osteophytes were removed from the medial tibial plateau. The final polyethylene wa s placed and the extensor mechanism repaired back in a watertight fashion using heavy Ethibond suture s. This was followed by closure of skin using Vicryl followed by geena. The patient was then plac ed in a well-padded sterile dressing, awakened, and taken to recovery room in good condition. There were no complications. SE/MODL Voice ID: [id number] Report ID: [id number]
[2021-04-19] MEDS ORDERED: INSULIN -REGULAR HUMAN 50 UNIT/0.5 ML ML ONE (10:31)
[2021-04-19 11:34] VITALS: O2SAT 98
[2021-04-19 12:28] VITALS: BMI 40.6
[2021-04-19] MEDS ORDERED: D50W 25 GM/50 ML SYRINGE IV PRN (17:29)
[2021-04-19] MEDS ORDERED: GLUCAGON 1 MG/VIAL IM PRN (17:29)
[2021-04-19] MEDS: CEFAZOLIN/NS 1gm 1 GM/50 ML BAG IVPB SCH (18:29)
[2021-04-19] MEDS: INSULIN -REGULAR HUMAN 50 UNIT/0.5 ML ML SQ SCH (21:13)
[2021-04-19] MEDS ORDERED: TOPIRAMATE 25 MG PO PRN (21:19)
--- NOTE | 2021-04-19 21:28 | P.HP ---
Certification for Inpatient Patient admitted to: Observation With expected LOS: <2 Midnights Practitioner: I am a practitioner with admitting privileges, knowledge of patient current condition, hospital course, and medical plan of care. Services: Services provided to patient in accordance with Admission requirements found in Title 42 Section 412.3 of the Code of Federal Regulations Patient History Date of Service: 04/19/21 Reason for admission: I WAS CALLED IN TO MANAGE DIABETES History of Present Illness: MR. ROMERO IS A DIABETIC WITH VASCULAR CHANGES WHO DOES NOT WANT TO CHANGE DIET FOR BETTER FOR DIABETIC HAD KNEE SURGERY BY DR. HAYS. HE IS MY OFFICE PATIENT SO DR. RASHID ASKED ME TO TAKE CARE OF HIS DIABETES INSTEAD OF HOSPITAL DOCTORS. HE IS NOT A COMPLIANT DIABETIC. HE CAN'T AFFORD ANY OF [place] [facility] [place] SO WE ARE STUCK WITH NOVOLIN 70/30 AND NO OTHER MEDS LIKE SGLT2 INHIBITERS OR GLP1 INHIBITORS. Allergies No Known Allergies Allergy (Verified 04/19/21 06:58) Home medications list reviewed: Yes Home Medications: Aspirin 81 mg PO DAILY #30 tab.chew 01/29/20 Atorvastatin Calcium [Lipitor] 80 mg PO BEDTIME #30 tab 01/29/20 Clopidogrel Bisulfate [Plavix*] 75 mg PO DAILY #30 tablet 01/29/20 Metoprolol Succinate [Toprol Xl*] 50 mg PO BID 6AM 6PM #60 tab 01/29/20 Metoprolol Tartrate [Lopressor*] 50 mg PO BID #60 tab 01/29/20 Metformin ER [Glucophage ER*] 500 mg PO BID 02/24/20 Topiramate [Trokendi Xr] 25 mg PO DAILYPRN PRN 02/24/20 Amitriptyline HCl 10 mg PO BEDTIME 04/14/21 Insulin Aspart [Insulin Aspart Flexpen] 100 unit SQ SEECOM 04/14/21 - Past Medical/Surgical History Has patient received pneumonia vaccine in the past: No Diabetic: Yes -: Diabetes mellitus type 2 -: Hypertension -: Hyperlipidemia -: CAD, Stent to LAD(01/2018) -: History of Hepatitis C -: Former tobacco use -: Former alcohol use -: COPD -: Jaw surgery (broken jaw) -: Heel surgery -: Heart stents -: Right ankle (screws in place) Psychosocial/ Personal History: He is . He has 1 child. He does not work, lives at home with his . - Family History Mother -: Heart disease Notes: heart attack Father -: Stroke, Cancer, Liver disease Notes: liver cancer/ alcoholic - Social History Smoking Status: Former smoker Alcohol use: Yes CD- Drugs: No Caffeine use: No Place of Residence: Home Review of Systems 10-point ROS is otherwise unremarkable Physical Examination - Vital Signs Temperature: 97.0 F Blood Pressure: 111/65 Pulse: 82 Respirations: 20 Pulse Ox (%): 95 - Physical Exam General: Mild distress, Obese HEENT: Atraumatic, PERRLA, Mucous membr. moist/pink, EOMI, Sclerae nonicteric Neck: Supple, 2+ carotid pulse no bruit, No LAD, Without JVD or thyroid abnormality Respiratory: Clear to auscultation bilaterally, Normal air movement Cardiovascular: Regular rate/rhythm, Normal S1 S2 Gastrointestinal: Normal bowel sounds, No tenderness Musculoskeletal: No tenderness Integumentary: No rashes Neurological: Normal gait, Normal speech, Normal strength at 5/5 x4 extr, Normal tone, Normal affect Lymphatics: No axilla or inguinal lymphadenopathy Assessment and Plan - Problems (Diagnosis) (1) Coronary artery disease due to type 2 diabetes mellitus Current Visit: Yes Status: Chronic Plan: HE AND KNOW THAT WEIGHT LOSS AND BETTER DIET MOST DIABETES MEDICINES WILL FAIL AND HE WILL CONTINUE TO HAVE COMPLICATIONS OF DIABETES. HE CHOSES NOT TO FOLLOW DIABETIC DIET. IS WRPOKING ON GETTING FREE OZEMPIC FO RHIM COST IS TOO HIGH. FOR GLUCOSE OF 500, HE WILL GET 20 OF REGULAR INSULIN AND 40 OF LANTUS WHILE HE IS HERE. (2) Cholelithiasis Onset Date: 03/03/18 Current Visit: No Status: Chronic Qualifiers: - Advance Directives Does patient have a Living Will: No Does patient have a Durable POA for Healthcare: Yes
[2021-04-19] MEDS ORDERED: INSULIN GLARGINE 100 UNITS/ML SQ ONE (22:17)
[2021-04-20] MEDS: CEFAZOLIN/NS 1gm 1 GM/50 ML BAG IVPB SCH ×2 (01:19→08:47)
[2021-04-20] MEDS ORDERED: NA CHLORIDE 0.9% 1,000 ML ONE (03:46)
[2021-04-20 06:39] LABS: Hematocrit 34.7 % (39.6-49.0)
[2021-04-20] MEDS: ENOXAPARIN 30 MG/0.3 ML SQ SCH ×2 (07:05→17:16)
[2021-04-20] MEDS: METOPROLOL XL 50 MG TAB PO SCH ×2 (07:21→17:16)
[2021-04-20] MEDS: INSULIN -REGULAR HUMAN 50 UNIT/0.5 ML ML SQ SCH ×5 (08:45→20:55)
[2021-04-20] MEDS: METOPROLOL TAR 50 MG TAB PO SCH ×2 (08:46→20:54)
[2021-04-20] MEDS: ASPIRIN 81 MG CHEWABLE TABLET PO SCH (08:46)
[2021-04-20] MEDS: CLOPIDOGREL 75 MG TABLET PO SCH (08:47)
[2021-04-20] MEDS: METFORMIN ER 500 MG TAB PO SCH ×2 (08:47→20:54)
[2021-04-20] MEDS ORDERED: GLUCAGON 1 MG/VIAL IM PRN (12:22)
[2021-04-20] MEDS ORDERED: D50W 25 GM/50 ML SYRINGE IV PRN (12:22)
[2021-04-20] MEDS ORDERED: INSULIN GLARGINE 100 UNITS/ML SQ ONE (12:24)
[2021-04-20] MEDS: HYDROCODONE/APAP 5/325 MG TAB PO PRN ×2 (14:39→20:52)
[2021-04-20] MEDS: INSULIN GLARGINE 100 UNITS/ML SQ SCH (20:56)
[2021-04-20] MEDS ORDERED: ATORVASTATIN 80 MG TAB PO SCH (21:00)
[2021-04-20] MEDS ORDERED: AMITRIPTYLINE 10 MG TAB PO SCH (21:00)
--- NOTE | 2021-04-20 22:02 | P.PN ---
Subjective Date of Service: 04/20/21 Chief Complaint: I WAS CALLED IN TO MANAGE DIABETES Subjective: Improving HIS GLUCOSE WENT OT 500 TODAY. HE IS GIVEN PLAIN INSULIN AND LANTUS. GLUCOSE IS DOWN TO 270 NOW. HE WILL GO HOME IN AM. DR CERNA IS OKAY WITH ASPIRIN AND PLAVIX FOR DVT PREVENTION AND DOES NOT WANT TO ADD XARELTO. Physical Examination - Vital Signs Temperature: 98.1 F Blood Pressure: 113/57 Pulse: 72 Respirations: 20 Pulse Ox (%): 97 - Physical Exam General: Oriented x3, Mild distress, Obese HEENT: Atraumatic, PERRLA, EOMI Neck: Supple, JVD not distended Respiratory: Clear to auscultation bilaterally, Normal air movement Cardiovascular: Regular rate/rhythm, Normal S1 S2 Gastrointestinal: Normal bowel sounds, No tenderness Musculoskeletal: No tenderness Integumentary: No rashes Neurological: Normal speech, Normal tone, Normal affect Lymphatics: No axilla or inguinal lymphadenopathy - Studies Laboratory Data (last 24 hrs) 04/20/21 11:44: Glucose 513 H* 04/20/21 05:58: Hgb 11.8 L, Hct 34.7 L D 04/19/21 21:25: Glucose 585 H* Medications List Reviewed: Yes Assessment And Plan - Current Problems (Diagnosis) (1) Coronary artery disease due to type 2 diabetes mellitus Current Visit: Yes Status: Chronic Plan: HE AND KNOW THAT WEIGHT LOSS AND BETTER DIET MOST DIABETES MEDICINES WILL FAIL AND HE WILL CONTINUE TO HAVE COMPLICATIONS OF DIABETES. HE CHOSES NOT TO FOLLOW DIABETIC DIET. IS WORKING ON GETTING FREE OZEMPIC FO RHIM COST IS TOO HIGH. FOR GLUCOSE OF 500, HE WILL GET 20 OF REGULAR INSULIN AND 40 OF LANTUS WHILE HE IS HERE. HE SHOULD BE CONTROLLED AT HOME IF HE WOULD FOLLOW DIET AND TAKE MEDS LIKE OZEMPIC. HE CAN'T TOLERATE SGLT2 INHIBITORS. PROGNOSIS REMAINS GUARDED. (2) Cholelithiasis Onset Date: 03/03/18 Current Visit: No Status: Chronic Qualifiers:
[2021-04-21] MEDS: INSULIN -REGULAR HUMAN 50 UNIT/0.5 ML ML SQ SCH ×3 (01:00→08:17)
[2021-04-21] MEDS: HYDROCODONE/APAP 5/325 MG TAB PO PRN ×2 (02:05→08:52)
[2021-04-21] MEDS: METOPROLOL XL 50 MG TAB PO SCH (06:00)
[2021-04-21 06:27] LABS: Hematocrit 33.3 % (39.6-49.0)
[2021-04-21] MEDS: ENOXAPARIN 30 MG/0.3 ML SQ SCH (06:43)
[2021-04-21] MEDS: CLOPIDOGREL 75 MG TABLET PO SCH (08:14)
[2021-04-21] MEDS: METFORMIN ER 500 MG TAB PO SCH (08:14)
[2021-04-21] MEDS: ASPIRIN 81 MG CHEWABLE TABLET PO SCH (08:14)
[2021-04-21] MEDS: INSULIN GLARGINE 100 UNITS/ML SQ SCH (08:15)
[2021-04-21] MEDS: METOPROLOL TAR 50 MG TAB PO SCH (08:16)
[2021-04-21 08:24] VITALS: BP 105/68; TEMP 97
--- NOTE | 2021-04-21 12:30 | P.DS ---
Admission Date: 04/19/21 Discharge Date: 04/21/21 Disposition: ROUTINE DISCHARGE Discharge Condition: FAIR Reason for Admission: I WAS CALLED IN TO MANAGE DIABETES - Problems (1) Coronary artery disease due to type 2 diabetes mellitus Status: Chronic (2) Cholelithiasis Onset Date: 03/03/18 Status: Chronic Qualifiers: Brief History of Present Illness: MR. ROMERO IS A DIABETIC WITH VASCULAR CHANGES WHO DOES NOT WANT TO CHANGE DIET FOR BETTER FOR DIABETIC HAD KNEE SURGERY BY DR. RUFF. HE IS MY OFFICE PATIENT SO DR. RASHID ASKED ME TO TAKE CARE OF HIS DIABETES INSTEAD OF HOSPITAL DOCTORS. HE IS NOT A COMPLIANT DIABETIC. HE CAN'T AFFORD ANY OF THE [facility] MEDS SO WE ARE STUCK WITH NOVOLIN 70/30 AND NO OTHER MEDS LIKE SGLT2 INHIBITERS OR GLP1 INHIBITORS. Hospital Course: MR. HUNG HAD KNEE SURGERY. HIS GLUCOSE WENT TO 500 WITH MEDS WE WERE ABLE TO BRING IT DOWN TO 128. IT IS POSSIBLE THAT IF HE TAKES INSULIN AND EATS BETTER HE CAN CONTROL GLUCOSE. IT IS ALL UPTO HIM. IF HE DOES NOT LOSE WEIGHT HE WILL HAVE MORE DIABETIC COMPLICATIONS. AND HIM ARE AWARE. I DISCOVERED TODAY THAT HE IS TAKING NOVOLIN 70/30 ONLY ONCE A DAY. HE HAS BEEN ADVISED TO TAKE IT BID BEFORE. HE IS STABLE FOR DC. DR. LUZ DID NTO WANT TO START XARELTO HE IS ON ASA AND PLAVIX. Vital Signs/Physical Exam: Temp Pulse Resp BP Pulse Ox 97 F 67 18 105/68 99 04/21/21 08:00 04/21/21 08:16 04/21/21 09:52 04/21/21 08:16 04/21/21 09:52 Laboratory Data at Discharge: WBC 9.80 K/uL (4.3-10.9) 04/14/21 10:04 Hgb 11.3 g/dL (13.6-17.9) L 04/21/21 06:01 Hct 33.3 % (39.6-49.0) L 04/21/21 06:01 Plt Count 246 K/uL (152-406) 04/14/21 10:04 PT 10.4 SECONDS (9.5-12.5) 04/14/21 10:04 INR 0.91 04/14/21 10:04 APTT 26.9 SECONDS (24.3-36.9) 04/14/21 10:04 Sodium 140 mmol/L (136-145) 04/14/21 10:04 Potassium 4.9 mmol/L (3.5-5.1) 04/14/21 10:04 BUN 14 mg/dL (7-18) 04/14/21 10:04 Creatinine 0.75 mg/dL (0.55-1.3) 04/14/21 10:04 Glucose 513 mg/dL (74-106) H* 04/20/21 11:44 Total Bilirubin 0.4 mg/dL (0.2-1.0) 04/14/21 10:04 AST 23 U/L (15-37) 04/14/21 10:04 ALT 59 U/L (12-78) 04/14/21 10:04 Alkaline Phosphatase 69 U/L (45-117) 04/14/21 10:04 Home Medications: Aspirin 81 mg PO DAILY #30 tab.chew 01/29/20 Atorvastatin Calcium [Lipitor] 80 mg PO BEDTIME #30 tab 01/29/20 Clopidogrel Bisulfate [Plavix*] 75 mg PO DAILY #30 tablet 01/29/20 Metoprolol Succinate [Toprol Xl*] 50 mg PO BID 6AM 6PM #60 tab 01/29/20 Metoprolol Tartrate [Lopressor*] 50 mg PO BID #60 tab 01/29/20 Metformin ER [Glucophage ER*] 500 mg PO BID 02/24/20 Topiramate [Trokendi Xr] 25 mg PO DAILYPRN PRN 02/24/20 Amitriptyline HCl 10 mg PO BEDTIME 04/14/21 Insulin Aspart [Insulin Aspart Flexpen] 100 unit SQ SEECOM 04/14/21 Followup: Roderick Suarez MD [ACTIVE - CAN ADMIT] - Kj Ruff MD [ACTIVE - CAN ADMIT] -
== END 2021-04-21 10:51 | disposition home health service (06) ==
LOC: OR 06:07 → 2ND 11:25
PROVIDERS: ADMIT Orthopaedic Surgery; ATTEND Orthopaedic Surgery
PROC: 0SRD069 Replacement of Left Knee Joint with Oxidized Zirconium on Polyethylene Synthetic Substitute, Cemented, Open Approach (ICD-10-PCS; principal; 2021-04-19 07:30)
DX: M17.12 Unilateral primary osteoarthritis, left knee (principal); E11.65 Type 2 diabetes mellitus with hyperglycemia; Z91.19 Patient's noncompliance with other medical treatment and regimen; E11.59 Type 2 diabetes mellitus with other circulatory complications; I25.10 Atherosclerotic heart disease of native coronary artery without angina pectoris; K80.20 Calculus of gallbladder without cholecystitis without obstruction; I10 Essential (primary) hypertension; E78.5 Hyperlipidemia, unspecified; J44.9 Chronic obstructive pulmonary disease, unspecified; I25.2 Old myocardial infarction; E66.9 Obesity, unspecified; Z68.41 Body mass index [BMI] 40.0-44.9, adult; Z20.822 Contact with and (suspected) exposure to COVID-19; Z86.73 Personal history of transient ischemic attack (TIA), and cerebral infarction without residual deficits; Z95.5 Presence of coronary angioplasty implant and graft; Z87.891 Personal history of nicotine dependence; Z86.19 Personal history of other infectious and parasitic diseases; Z79.4 Long term (current) use of insulin; Z79.02 Long term (current) use of antithrombotics/antiplatelets; Z79.82 Long term (current) use of aspirin; Z82.49 Family history of ischemic heart disease and other diseases of the circulatory system; Z82.3 Family history of stroke; Z80.0 Family history of malignant neoplasm of digestive organs
CPT/HCPCS: 27447; 85025; 36415 ×3; 86900; 86850; 82947 ×14; 85610; 86901; 88304; 88311; 85730; 85018 ×2; 85014 ×2; 81003; 80053; 71046; 97116 ×4; 97139; 97161; 97530 ×2; 94010 ×2; U0002; J2704; J1100; J1650 ×3; J2250; J3010; J2270; J1170; J0690 ×2; G0378 ×4; J7030 ×3; J2405; G0379; J1815